=== PATIENT | male | born 1935 | race Caucasian/White ===

== ENCOUNTER 2019-05-12 18:40 | Inpatient (IN) ==
[2019-05-12 19:19] LABS: BASO# 0.03 X1000 (0.0-0.2); BASO% 0.4 % (0.0-0.8); EOS# 0.22 X1000 (0.0-0.7); EOS% 2.9 % (0.0-10.0); HEMOGLOBIN 8.9 g/dL (14.0-18.0); IMM GRAN# 0.02 X1000 (0.0-0.04); IMM GRAN% 0.3 % (0.0-0.5); LYMPH# 1.38 X1000 (1.2-3.4); LYMPH% 18.2 % (20.5-51.1); MCH 32.2 PG (27-31); MCV 97.8 FL (81-99); MONO# 0.67 X1000 (0.11-0.59); MONO% 8.8 % (1.7-9.3); MPV 11.6 FL (7.4-10.4); NEUT# 5.26 X1000 (1.4-6.5); NEUT% 69.4 % (42.2-75.2); PLT 181 X1000 (130-400); RBC 2.76 XMIL (4.7-6.1); RDW 11.8 % (11.5-14.5); WBC 7.58 X1000 (4.8-10.8)
[2019-05-12 19:44] LABS: ALBUMIN 3.9 g/dL (3.5-5.0); CALCIUM 9.3 mg/dL (8.8-10.2); CREATININE 2.9 mg/dL (0.7-1.2); MAGNESIUM 2.2 mg/dL (1.5-2.7); POTASSIUM 4.7 mmol/L (3.5-5.1); TOTAL BILIRUBIN 0.2 mg/dL (0.20-1.00); TOTAL PROTEIN 6.4 g/dL (6.3-8.3)
[2019-05-12] MEDS ORDERED: NS 1,000 ML IV ONE (20:03)
[2019-05-12 20:21] LABS: BILIRUBIN URINE NEGATIVE (NEGATIVE); BLOOD URINE NEGATIVE (NEGATIVE); COLOR YELLOW; KETONE URINE NEGATIVE (NEGATIVE); LEUKOCYTES URINE TRACE (NEGATIVE); NITRITE URINE NEGATIVE (NEGATIVE); PROTEIN URINE TRACE mg/dL (NEGATIVE); UROBILINOGEN URINE NORMAL
[2019-05-12 20:35] LABS: URINE SOURCE CATH
[2019-05-12 20:36] LABS: CLARITY CLEAR (CLEAR)
[2019-05-12 20:38] LABS: URINE BACTERIA NEGATIVE /HFP; URINE CAST NONE SEEN /LPF; URINE CRYSTAL NONE SEEN /HPF; URINE EPITHELIAL CELLS <10 /HPF (<10); URINE RBC <10 /HPF (<10); URINE WBC <10 /HPF (<10); URINE YEAST NONE SEEN /HPF
[2019-05-12] MEDS ORDERED: HUMALOG SUBQ SCH (21:00)
[2019-05-12] MEDS: HUMALOG (PARKWAY) SUBQ SCH ×2 (23:42→23:52)
[2019-05-12] MEDS: NS 1,000 ML IV SCH (23:43)
[2019-05-13] MEDS: HUMALOG (PARKWAY) SUBQ SCH ×3 (06:36→16:58)
[2019-05-13] MEDS ORDERED: ZOFRAN IV PRN (08:55)
[2019-05-13] MEDS ORDERED: TYLENOL PO PRN (08:55)
[2019-05-13] MEDS ORDERED: PERICOLACE PO PRN (08:59)
[2019-05-13] MEDS: NORVASC PO SCH (10:43)
[2019-05-13] MEDS: ZYRTEC PO SCH (10:43)
[2019-05-13] MEDS: GLUCOPHAGE XR PO SCH ×2 (10:43→22:39)
[2019-05-13] MEDS: TENORMIN PO SCH (10:43)
[2019-05-13] MEDS: DITROPAN PO SCH ×2 (10:43→22:39)
[2019-05-13] MEDS: FLOMAX PO SCH (10:43)
[2019-05-13] MEDS: PLAVIX PO SCH (10:44)
[2019-05-13] MEDS: NS 1,000 ML IV SCH (14:33)
--- NOTE | 2019-05-13 16:50 | HISTORY AND PHYSICAL ---
PRIMARY CARE PROVIDER: Dr. Brendan Guadalupe. CHIEF COMPLAINT: High blood sugar, excessive drinking, dehydration. HISTORY OF PRESENT ILLNESS: Mr. 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 Currently only oriented to name. Apparently, he is still living at home. He has a sitter that sits with him during the day and no one to sit with him at night. He has a bath lady that helps him in the mornings. He was brought in through the emergency department for excessive thirst, high blood sugar levels, and he was admitted for treatment of that. Also apparently, he has been having increasing sleepiness, sleeping more, decreased appetite, only eating around 1 meal a day. Some reported difficulties with swallowing. His blood glucose level was 460 on admit. Got fluids. Got insulin. Culture of the urine pending, but no antibiotics as of right now. PAST MEDICAL HISTORY: 1. CVA and left-sided weakness in 2005. 2. Possible dementia. 3. Diabetes mellitus type 2. 4. Hypertension. 5. BPH. 6. Hyperlipidemia. 7. Seasonal allergies. 8. Chronic back pain. 9. CKD stage 3. SURGICAL HISTORY: None. SOCIAL HISTORY: An old H and P says he denies alcohol, tobacco, or illicit drug use. It is really difficult to obtain this information right now; he is a poor historian. The neighbor says he does live alone but has a sitter during the day. He is alone at night. FAMILY HISTORY: Unable to obtain. ALLERGIES: No known drug allergies. HOME MEDICATIONS: 1. Atenolol 50 mg p.o. daily. 2. Flomax 0.4 mg p.o. daily. 3. Metformin 1000 mg p.o. twice daily. 4. Oxybutynin 5 mg p.o. twice daily. 5. Plavix 75 mg p.o. daily. 6. Senokot 1 to 4 tablets p.o. twice daily for constipation. 7. Zyrtec 10 mg p.o. daily. 8. Lipitor 40 mg p.o. nightly. 9. Norvasc 10 mg p.o. daily. REVIEW OF SYSTEMS: Unable to obtain. He denies pain. PHYSICAL EXAMINATION: VITAL SIGNS: Temperature is 97.6 degrees, heart rate 57, respiratory rate 18, blood pressure 123/60, O2 saturation 97% on room air. GENERAL: Mr. Sacha Ray is an 83-year-old male. He is in no acute distress, but he is not really able answer questions. HEENT: Atraumatic, normocephalic. Pupils equal, round, reactive to light and unable to cooperate with extraocular movements. Mucous membranes moist. NECK: Trachea midline. CARDIOVASCULAR: S1, S2. Bradycardic rate and rhythm. No rubs, gallops, or murmurs. No lower extremity edema. With +2 dorsalis and radial pulses. Negative JVD or carotid bruits. PULMONARY: Clear to auscultation. Bilateral breath sounds. No accessory muscle use or work of breathing noted. GI: Soft, nontender, nondistended. Positive bowel sounds x4. EXTREMITIES: Decreased movement and strength in the left upper and lower extremities. They are unequal. This is chronic for him. NEUROLOGIC: Oriented to name only. Follows some simple commands. SKIN: Warm, dry, intact. LABORATORY DATA: White blood cells 7000, hemoglobin 8, hematocrit 27, platelet count 181,000. Sodium 134, potassium 4.7, BUN 102, creatinine 2.9, glucose was 460, but is down to 160, calcium 9.3, magnesium 2.2, bilirubin 0.20, AST 26, ALT 34, troponin 0.03, albumin 3.9, lipase 63. Urinalysis trace protein, trace white blood cells, 3+ glucose, negative for bacteria. IMAGING: None. ASSESSMENT AND PLAN: 1. Hyperglycemia with dehydration. Insulin sliding scale along with IV fluid hydration given. Started on diabetic diet. 2. Mild acute kidney injury on top of chronic kidney disease stage 3. Again, should start to improve with IV fluid hydration. 3. History of stroke and likely with dementia. Baseline is really unclear. He is only oriented to name. Could be metabolic encephalopathy. 4. Hypertension. Continue home medications. 5. Benign prostatic hypertrophy. Continue home medications. 6. Hyperlipidemia. Continue statin. 7. Deep venous thrombosis prophylaxis with SCDs. Dictated by SOURAV Fowler for Cesar Canales MD Addendum: Patient seen and examined by myself. Agree with ROLLOUT MANAGER note. It reflects my assessment and plan. Patient is being admitted to hospital for volume depletion and hyperglycemia. Also he complained of chest pain. Will trend cardiac enzymes, will start IV fluids and continue home medications. Will monitor patient closely. cc: SOURAV Fowler MD MTDD
[2019-05-13] MEDS: LIPITOR PO SCH (22:39)
[2019-05-14] MEDS: HUMALOG (PARKWAY) SUBQ SCH ×5 (03:52→21:41)
[2019-05-14 06:44] LABS: HEMOGLOBIN A1C 7.1 % (4.8-6.0)
[2019-05-14 06:45] LABS: BASO# 0.03 X1000 (0.0-0.2); BASO% 0.3 % (0.0-0.8); EOS# 0.36 X1000 (0.0-0.7); EOS% 3.6 % (0.0-10.0); HEMATOCRIT 27.7 % (42.0-52.0); HEMOGLOBIN 9.2 g/dL (14.0-18.0); IMM GRAN# 0.03 X1000 (0.0-0.04); IMM GRAN% 0.3 % (0.0-0.5); LYMPH# 2.25 X1000 (1.2-3.4); LYMPH% 22.3 % (20.5-51.1); MCH 32.2 PG (27-31); MCHC 33.2 g/dL (33-37); MCV 96.9 FL (81-99); MONO# 0.71 X1000 (0.11-0.59); MPV 10.7 FL (7.4-10.4); NEUT# 6.72 X1000 (1.4-6.5); NEUT% 66.5 % (42.2-75.2); PLT 198 X1000 (130-400); RBC 2.86 XMIL (4.7-6.1)
[2019-05-14 06:55] LABS: ALBUMIN 3.4 g/dL (3.5-5.0); CALCIUM 9.6 mg/dL (8.8-10.2); CREATININE 2.3 mg/dL (0.7-1.2); MAGNESIUM 2.1 mg/dL (1.5-2.7); POTASSIUM 5.2 mmol/L (3.5-5.1); TOTAL BILIRUBIN 0.3 mg/dL (0.20-1.00); TOTAL PROTEIN 6.6 g/dL (6.3-8.3)
[2019-05-14] MEDS: PLAVIX PO SCH (09:09)
[2019-05-14] MEDS: DITROPAN PO SCH ×2 (09:09→21:41)
[2019-05-14] MEDS: FLOMAX PO SCH (09:10)
[2019-05-14] MEDS: TENORMIN PO SCH (09:10)
[2019-05-14] MEDS: ZYRTEC PO SCH (09:10)
[2019-05-14] MEDS: GLUCOPHAGE XR PO SCH ×2 (09:10→21:40)
[2019-05-14] MEDS: NORVASC PO SCH (09:10)
--- NOTE | 2019-05-14 11:18 | Diag Imaging Result Doc PS360 ---
EXAM: CHEST-1 VIEW HISTORY: sob TECHNIQUE: Single view. COMPARISON: 05/06/2018. FINDINGS: The cardiomediastinal silhouette is within normal limits. The pulmonary vasculature is not congested. Right hemithorax shows no infiltrate, effusion, or pneumothorax. Left hemithorax is obscured by the patient's left upper extremity but no obvious pulmonary parenchymal abnormality is identified. IMPRESSION: No acute cardiopulmonary abnormality is identified. Limited evaluation left hemithorax due to superimposed left upper extremity. Electronically signed by Yoselin Lofton 05/14/2019 11:16 AM
--- NOTE | 2019-05-14 11:45 | PROGRESS NOTE ---
DATE: 05/14/2019 SUBJECTIVE: Patient reports feeling fine. No complaints at this time. No acute issues noted as per nursing staff overnight. OBJECTIVE: Vital Signs: Temperature 97.9 degrees, heart rate 56, respiratory rate 16, blood pressure 118/54, O2 saturation 100% on room air. General: This is a 89-year-old male lying in bed in no acute distress. Cardiovascular: S1 S2 heard. No murmurs, gallops, or rubs. Regular rate and rhythm. Respiratory: Clear bilaterally to auscultation. No work of breathing or using accessory muscles. Abdomen: Soft, nontender to palpation. Bowel sounds present. No organomegaly. Extremities: No clubbing or cyanosis. Decreased strength in the left lower extremities. Neurological: The patient has residual left hemiparesis. He follows simple commands, answers basic questions. LABORATORY DATA: Reviewed. ASSESSMENT AND PLAN: 1. Mild acute on chronic kidney disease stage 3. 2. Hyperglycemia with dehydration. 3. History of stroke with dementia. 4. Hypertension. 5. Benign prostatic hypertrophy. 6. Hyperlipidemia. At this point, patient is being given IV fluids. Patient is on sliding scale insulin for hyperglycemia. He is getting better. Renal function is getting better. Considering his history of stroke and physical deconditioning, family requests to have a referral for rehab facility. beam worker has been notified. We will follow recommendations. In the meantime, we will continue with same management. cc: Cesar Canales MD
[2019-05-14] MEDS: LOKELMA POWDER PACKET PO SCH ×2 (13:20→17:05)
[2019-05-14] MEDS: LIPITOR PO SCH (21:40)
[2019-05-15 06:10] LABS: BASO# 0.02 X1000 (0.0-0.2); BASO% 0.2 % (0.0-0.8); EOS# 0.25 X1000 (0.0-0.7); EOS% 2.9 % (0.0-10.0); HEMATOCRIT 26.4 % (42.0-52.0); HEMOGLOBIN 8.6 g/dL (14.0-18.0); IMM GRAN# 0.03 X1000 (0.0-0.04); IMM GRAN% 0.3 % (0.0-0.5); LYMPH# 2.35 X1000 (1.2-3.4); LYMPH% 26.9 % (20.5-51.1); MCH 31.3 PG (27-31); MCHC 32.6 g/dL (33-37); MONO# 0.66 X1000 (0.11-0.59); MONO% 7.5 % (1.7-9.3); NEUT# 5.44 X1000 (1.4-6.5); NEUT% 62.2 % (42.2-75.2); PLT 211 X1000 (130-400); RBC 2.75 XMIL (4.7-6.1); WBC 8.75 X1000 (4.8-10.8)
[2019-05-15] MEDS: HUMALOG (PARKWAY) SUBQ SCH ×3 (06:31→15:57)
[2019-05-15 06:33] LABS: ALBUMIN 3.5 g/dL (3.5-5.0); CALCIUM 9.3 mg/dL (8.8-10.2); CREATININE 2.4 mg/dL (0.7-1.2); POTASSIUM 4.4 mmol/L (3.5-5.1); TOTAL BILIRUBIN 0.3 mg/dL (0.20-1.00); TOTAL PROTEIN 6.4 g/dL (6.3-8.3)
[2019-05-15] MEDS: FLOMAX PO SCH (09:59)
[2019-05-15] MEDS: DITROPAN PO SCH ×2 (09:59→20:30)
[2019-05-15] MEDS: NORVASC PO SCH (09:59)
[2019-05-15] MEDS: ZYRTEC PO SCH (09:59)
[2019-05-15] MEDS: TENORMIN PO SCH (09:59)
[2019-05-15] MEDS: PLAVIX PO SCH (09:59)
[2019-05-15] MEDS: NS 1,000 ML IV SCH ×2 (10:00→20:30)
--- NOTE | 2019-05-15 10:00 | PROGRESS NOTE ---
DATE: 05/15/2019 SUBJECTIVE: Patient denies having any acute complaints this morning. He is awake and knows that he is in the hospital. He actually wants to go home. OBJECTIVE: Vital Signs: Temperature 97.7 degrees, pulse 57 per minute, respiratory rate 14 per minute, blood pressure 102/59, pulse oximetry 97% on room air. General: Patient is alert and awake. He does not appear to be in any acute distress. Cardiovascular System: First and second heart sounds are audible without any murmurs or gallops. Respiratory System: No respiratory distress noted. Bilateral lung air entry is moderately decreased but there are no rales or rhonchi present on auscultation. Gastrointestinal: Abdomen is soft and nondistended. Normal bowel sounds are present. DIAGNOSTIC DATA: CBC shows hemoglobin of 8.6 and hematocrit 26.4. Rest of the CBC is nondiagnostic. In comparison, his hemoglobin and hematocrit were 9.2 and 27.7 yesterday. Comprehensive metabolic panel showed BUN of 70, creatinine 2.4, and sodium levels of 134. Rest of the comprehensive metabolic panel is nondiagnostic. IMPRESSION: 1. Type 2 diabetes mellitus with hyperglycemia that has now improved. 2. Acute kidney injury secondary to pre renal azotemia/dehydration. 3. Metabolic encephalopathy that has now improved. 4. Hypertension with relatively low blood pressure of 102/59 this morning. 5. Anemia that appears to be chronic and slightly worsened secondary to hemodilution because of IV fluids. PLAN: The patient will be continued here on lispro insulin as per sliding scale and I am going to restart him on IV fluid normal saline at 100 mL/h. I am going to decrease the dose of amlodipine to 5 mg a day because of relatively low blood pressure and continue with the rest of his home medications. We will continue providing him supportive care and follow hospital course. cc: Andrez Damico MD
--- NOTE | 2019-05-15 11:43 | PROVIDER DOCUMENTATION ---
This chart was entered by Ivone Perry Scribe, acting as scribe for Timi Barrientos MD. HPI-General Adult - General Chief Complaint: High Blood Sugar Stated Complaint: BP/BS PROBS Time Seen by Provider: 05/12/19 19:27 Source: family, RN/MD (chemist intern) Allergies/Adverse Reactions: Patient Allergies Allergy/AdvReac Type Severity Reaction Status Date / Time No Known Allergies Allergy Verified 05/12/19 19:27 Home Medications: Home Medication List Medication Instructions Recorded Confirmed Last Taken Type Atenolol 50 mg PO DAILY 05/15/13 05/12/19 05/12/19 History Metformin HCl [Fortamet] 1,000 mg PO BID 05/15/13 05/12/19 05/12/19 History ATORVAstatin [Lipitor] 40 mg PO HS #0 tablet 05/18/13 05/12/19 05/11/19 Rx Cetirizine [Zyrtec] 10 mg PO DAILY 05/04/18 05/12/19 05/12/19 History Clopidogrel [Plavix] 75 mg PO DAILY 05/04/18 05/12/19 05/12/19 History Oxybutynin Chloride 5 mg PO BID 05/04/18 05/12/19 05/12/19 History Tamsulosin HCl [Flomax] 0.4 mg PO DAILY 05/04/18 05/12/19 05/12/19 History Amlodipine [Norvasc] 10 mg PO DAILY tablet 05/11/18 05/12/19 05/12/19 Rx Sennosides/Docusate Sodium 1 - 4 tab PO BID PRN 05/12/19 05/12/19 Unknown History [Senna-S Tablet] - History of Present Illness -Gen Adult Nature of Presenting Problems: 83 yowm presents w/family and utility tech w/cc high fsbs for 2 wks. family sts pt had fsbs 225 this am and went up over 500 this afternoon when chemist intern checked. pt was "out of it" and "wouldn't wake up." pt has been drinking a lot of water lately. pt has hx of DM, takes metformin 2 x daily, family sts pt has had trouble swallowing them lately. pt doesn't ambulate. pt also has hx of cva in 2005 w/left sided deficits and htn. Location of Pain/Injury: reports: none Pain Radiation: reports: no radiation Quality of Pain: reports: none Severity: reports: mild Onset/Duration: reports: this morning Similar Symptoms Previously?: Yes - Diabetes Related Context Context: reports: high blood sugar, other ("out of it" and "couldn't wake up") Review of Systems - Adult - REVIEW OF SYSTEMS - ADULT ROS:: ROS per family Constitutional: reports: see HPI. denies: chills, fever, fatique Eyes: reports: no symptoms reported Ears, Nose, Mouth & Throat: reports: no symptoms reported Cardiovascular: reports: no symptoms reported Respiratory: reports: no symptoms reported Gastrointestinal: reports: no symptoms reported Genitourinary: reports: no symptoms reported Musculoskeletal: reports: no symptoms reported Integumentary: reports: no symptoms reported Neurological: reports: no symptoms reported Psychiatric: reports: no symptoms reported Endocrine: reports: see HPI, increased thirst, other. denies: change in skin pigment, excessive sweating, goiter (high fsbs) Hematologic/Lymphatic: reports: no symptoms reported Allergic/Immunologic: reports: no symptoms reported All Other Systems: Reviewed and Negative Past History - Adult - PAST MEDICAL HISTORY-ADULT Review of Records: reports: Old Records Reviewed, Nursing Assessment Review, Medications Reviewed, Social history reviewed & non-contributory. Major Childhood Illnesses: reports: denies history Cardiovascular: reports: HTN Respiratory: reports: denies history Gastrointestinal: reports: denies history Obstetrical/Gynecological: reports: denies history Genitourinary: reports: denies history Musculoskeletal: reports: denies history Neurological: reports: CVA, stroke deficits (left sided) Endocrine/Immune: reports: Diabetes Other Conditions: reports: denies history - PRIOR SURGERIES/PROCEDURES Surgical/Procedure History: reports: none - IMMUNIZATION STATUS Childhood Immunizations: See Nurse Assessment Flu Vaccine: See Nurse Assessment - FAMILY HISTORY Family History: reviewed, not pertinent - SOCIAL HISTORY Smoking: non-smoker Substance Use: none/never Physical Exam-General - PHYSICAL EXAM-ADULT Initial Vital Signs Reviewed: Yes - CONSTITUTIONAL General Appearance: no apparent distress, slow to respond. negative: anxious, lethargic, combative - EYES Eyes: other (conjugate gaze). negative: EOM palsy, photophobia, sunken eyes - HEAD, EARS, NOSE, MOUTH & THROAT HENMT: normocephalic/atraumatic, normal ENT inspection. negative: moist mucous membranes (dry mucous membranes), angioedema, frontal tenderness, maxillary tenderness - NECK Neck: non-tender, full range of motion, supple, normal inspection - RESPIRATORY Respiratory: chest non-tender, lungs clear, normal breath sounds - CARDIOVASCULAR Cardiovascular: normal peripheral pulses, regular rate, rhythm - GASTROINTESTINAL (ABDOMEN) Abdominal Exam: normal bowel sounds, non tender, soft - LYMPHATIC Lymphatic: no adenopathy - MUSCULOSKELETAL Back Exam: normal inspection, no CVA tenderness, no vertebral tenderness Extremity: normal range of motion, non-tender, other (contracted left arm from prior cva). negative: normal inspection, erythema, inflammation, swelling Peripheral Pulses: radial (R): 2+, radial (L): 2+ - SKIN Integumentary: normal color, normal turgor, warm/dry - NEUROLOGIC Neurologic: grossly normal, sensory deficit, other (pt does not amb, has left sided deficits from prior cva). negative: no motor/sensory deficits, motor weakness - PSYCHIATRIC Psych/Mental Status: other (unable to test due to pt condition). negative: anxious, disheveled, depressed affect Progress - PLAN OF CARE/RESULTS Progress/Plan/Lab Results: Vital Signs - 8 hr 05/12/19 18:32 05/12/19 19:18 Temperature 98.1 F Pulse Rate 69 70 Respiratory Rate 18 16 Blood Pressure 140/075 138/75 O2 Sat by Pulse Oximetry 98 98 Laboratory Results - last 24 hr 05/12/19 05/12/19 18:40 18:40 WBC 7.58 RBC 2.76 L Hgb 8.9 L Hct 27.0 L MCV 97.8 MCH 32.2 H MCHC 33.0 RDW Std Deviation 11.8 Plt Count 181 MPV 11.6 H Immature Gran % (Auto) 0.3 Neut % (Auto) 69.4 Lymph % (Auto) 18.2 L B[place] % (Auto) 8.8 Eos % (Auto) 2.9 Baso % (Auto) 0.4 Immature Gran # (Auto) 0.02 Neut # (Auto) 5.26 Lymph # (Auto) 1.38 [place] # (Auto) 0.67 H Eos # (Auto) 0.22 Baso # (Auto) 0.03 Acetone Level NEGATIVE Orders Category Date Time Status Cardiac Monitoring DIRECTED Care 05/12/19 18:46 Active Saline Loc NOW Care 05/12/19 18:46 Active ACETONE SERUM [CHEM] Stat Lab 05/12/19 18:40 Completed CBC WITH ELECTRONIC DIFF [HEME] Stat Lab 05/12/19 18:40 Completed COMPREHENSIVE METABOLIC PANEL [CHEM] Stat Lab 05/12/19 18:40 Received LIPASE [CHEM] Stat Lab 05/12/19 18:40 Received MAGNESIUM [CHEM] Stat Lab 05/12/19 18:40 Received TROPONIN T Stat Lab 05/12/19 18:[address] W/POSS RFLX CULT [URINALYSIS] Stat Lab 05/12/19 18:47 Uncollected EKG [EKG] Stat Ther 05/12/19 18:46 Ordered Result Diagrams: 05/16/19 05:29 05/16/19 05:29 Departure - Departure Date of Disposition Decision: 05/12/19 Time of Disposition Decision: 21:37 DIAGNOSIS: Hyperglycemia, Dehydration, Azotemia Dementia Qualifiers: Dementia type: unspecified type Dementia behavioral disturbance: without behavioral disturbance Qualified Code(s): F03.90 - Unspecified dementia without behavioral disturbance Diabetes Qualifiers: Diabetes mellitus type: type 2 Diabetes mellitus continuous churn buttermaker insulin use: unspecified mcc insulin use status Diabetes mellitus complication status: with other specified complication Qualified Code(s): E11.69 - Type 2 diabetes mellitus with other specified complication Disposition: ADMITTED INPATIENT 09 Certified Medical Emergency: Emergent Condition: Stable - Critical Care Note This patient required my direct & personal management of CC.: No Attestation - Physician/ WINNIE Attestation Patient care was provided by Advanced Practice Provider:: No The physician spent face to face time with patient:: Yes Advanced Practice Provider documentation review:: Supervising physician onsite and consulted in the evaluation and care of this patient. The physician did have a face to face encounter with the patient. This chart was documented by the indicated scribe, (Ivone Perry Scribe) and accurately reflects the services I performed and decisions made by me, Timi Barrientos MD, as attested by the provider's signature.
[2019-05-15] MEDS: LOKELMA POWDER PACKET PO SCH ×3 (11:57→18:43)
[2019-05-15] MEDS: LIPITOR PO SCH (20:30)
[2019-05-16] MEDS: HUMALOG (PARKWAY) SUBQ SCH ×5 (03:51→21:51)
[2019-05-16 06:26] LABS: BASO# 0.02 X1000 (0.0-0.2); BASO% 0.3 % (0.0-0.8); EOS# 0.19 X1000 (0.0-0.7); EOS% 2.4 % (0.0-10.0); HEMATOCRIT 26.8 % (42.0-52.0); IMM GRAN# 0.02 X1000 (0.0-0.04); IMM GRAN% 0.3 % (0.0-0.5); LYMPH# 1.82 X1000 (1.2-3.4); LYMPH% 22.9 % (20.5-51.1); MCH 31.8 PG (27-31); MCHC 33.6 g/dL (33-37); MCV 94.7 FL (81-99); MONO% 8.8 % (1.7-9.3); MPV 11.2 FL (7.4-10.4); NEUT# 5.19 X1000 (1.4-6.5); NEUT% 65.3 % (42.2-75.2); PLT 195 X1000 (130-400); RBC 2.83 XMIL (4.7-6.1); RDW 11.8 % (11.5-14.5); WBC 7.94 X1000 (4.8-10.8)
[2019-05-16 06:53] LABS: ALBUMIN 3.4 g/dL (3.5-5.0); CALCIUM 8.9 mg/dL (8.8-10.2); CREATININE 2.2 mg/dL (0.7-1.2); MAGNESIUM 1.8 mg/dL (1.5-2.7); POTASSIUM 3.8 mmol/L (3.5-5.1); TOTAL BILIRUBIN 0.3 mg/dL (0.20-1.00); TOTAL PROTEIN 6.3 g/dL (6.3-8.3)
[2019-05-16] MEDS: FLOMAX PO SCH (09:31)
[2019-05-16] MEDS: TENORMIN PO SCH ×2 (09:31→17:01)
[2019-05-16] MEDS: PLAVIX PO SCH (09:31)
[2019-05-16] MEDS: DITROPAN PO SCH ×2 (09:31→21:50)
[2019-05-16] MEDS: ZYRTEC PO SCH (09:31)
[2019-05-16] MEDS: NORVASC PO SCH (09:31)
--- NOTE | 2019-05-16 13:21 | PROGRESS NOTE ---
DATE: 05/16/2019 SUBJECTIVE: Patient reports feeling fine. A little bit sleepy this morning. OBJECTIVE: Vital Signs: Temperature 97.7 degrees, heart rate 59, respiratory rate 18, blood pressure 124/73, O2 saturation 100% on room air. General: This is a chronically ill-appearing, 83-year-old male, lying in bed, in no acute distress. Cardiovascular: S1, S2 heard. No murmurs, gallops, or rubs. Regular rate and rhythm. Respiratory: Clear bilaterally to auscultation. No work of breathing or using accessory muscles. Abdomen: Soft. A little bit distended. Nontender to palpation. Bowel sounds present. No organomegaly. Extremities: No clubbing, cyanosis, or edema. Peripheral pulses present in both legs. Neurological: The patient is alert, oriented x3. Moves 4 extremities. LABORATORY DATA: Reviewed. ASSESSMENT/PLAN: 1. Diabetes mellitus type 2 with hyperglycemia. That condition is much better now. We will continue with current treatment. 2. Acute kidney injury. We will continue with IV fluids. Renal function definitely is back to his baseline. 3. Metabolic encephalopathy improving. 4. Hypertension. Blood pressure is definitely much better controlled. We will continue with the same medication. 5. Anemia of chronic disease. The anemia is stable. There is some component of delusional anemia but no signs of bleeding. We will continue to monitor. DISPOSITION: Patient is awaiting rehab bed. cc: Cesar Canales MD
[2019-05-16] MEDS: NS 1,000 ML IV SCH (17:01)
[2019-05-16] MEDS: LIPITOR PO SCH (21:51)
[2019-05-17] MEDS: NS 1,000 ML IV SCH ×5 (01:51→23:02)
[2019-05-17] MEDS: HUMALOG (PARKWAY) SUBQ SCH ×4 (06:38→22:24)
[2019-05-17 06:44] LABS: BASO# 0.03 X1000 (0.0-0.2); BASO% 0.4 % (0.0-0.8); EOS# 0.23 X1000 (0.0-0.7); HEMATOCRIT 26.9 % (42.0-52.0); HEMOGLOBIN 9.1 g/dL (14.0-18.0); IMM GRAN# 0.01 X1000 (0.0-0.04); IMM GRAN% 0.1 % (0.0-0.5); LYMPH# 1.72 X1000 (1.2-3.4); LYMPH% 22.7 % (20.5-51.1); MCH 32.9 PG (27-31); MCHC 33.8 g/dL (33-37); MCV 97.1 FL (81-99); MONO# 0.63 X1000 (0.11-0.59); MONO% 8.3 % (1.7-9.3); MPV 10.4 FL (7.4-10.4); NEUT# 4.96 X1000 (1.4-6.5); NEUT% 65.5 % (42.2-75.2); PLT 194 X1000 (130-400); RBC 2.77 XMIL (4.7-6.1); RDW 11.7 % (11.5-14.5); WBC 7.58 X1000 (4.8-10.8)
[2019-05-17 06:53] LABS: ALBUMIN 3.3 g/dL (3.5-5.0); CALCIUM 8.8 mg/dL (8.8-10.2); MAGNESIUM 1.8 mg/dL (1.5-2.7); POTASSIUM 3.7 mmol/L (3.5-5.1); TOTAL BILIRUBIN 0.3 mg/dL (0.20-1.00); TOTAL PROTEIN 6.1 g/dL (6.3-8.3)
[2019-05-17] MEDS: TENORMIN PO SCH (09:42)
[2019-05-17] MEDS: DITROPAN PO SCH ×2 (09:42→20:00)
[2019-05-17] MEDS: ZYRTEC PO SCH (09:42)
[2019-05-17] MEDS: FLOMAX PO SCH (09:42)
[2019-05-17] MEDS: PLAVIX PO SCH (09:42)
[2019-05-17] MEDS: NORVASC PO SCH (09:42)
--- NOTE | 2019-05-17 12:09 | PROGRESS NOTE ---
DATE: 05/17/2019 SUBJECTIVE: The patient is lying in bed, asking when he is leaving the hospital. No complaints reported. OBJECTIVE: Vital Signs: Temperature 98.4 degrees, heart rate 60, respiratory rate 18, blood pressure 158/61, O2 sat 100% on room air. General: This is a chronically ill-appearing, 83-year- old female, lying in bed in no acute distress. Cardiovascular: S1, S2 heard. No murmurs, gallops, or rubs. Regular rate and rhythm. Respiratory: Clear bilaterally to auscultation. No work of breathing or using accessory muscles. Abdomen: Soft. A little bit distended. Nontender to palpation. Bowel sounds present. No organomegaly. Extremities: No clubbing, cyanosis, or edema. Peripheral pulses present in both legs. Neurological: The patient is alert and oriented x3. Moves all 4 extremities. LABORATORY DATA: Reviewed. ASSESSMENT AND PLAN: 1. Diabetes mellitus type 2 with hyperglycemia. The condition is much better controlled. Will continue with the current treatment. 2. Acute kidney injury. Creatinine is back to baseline. Will continue with intravenous fluids. 3. Metabolic encephalopathy, improving. 4. Hypertension. Blood pressure is much better controlled. Will continue with the same management. 5. Anemia of chronic disease. Anemia is stable. Will continue to monitor CBC. 6. Disposition. The patient has a rehab bed for tomorrow according to the social work program coordinator, if the patient is medically stable, so will discharge him tomorrow. cc: Cesar Canales MD
[2019-05-17] MEDS: LIPITOR PO SCH (20:00)
[2019-05-18] MEDS: HUMALOG (PARKWAY) SUBQ SCH ×2 (06:25→11:55)
[2019-05-18 06:44] VITALS: BP 152/76
[2019-05-18] MEDS: NORVASC PO SCH (09:06)
[2019-05-18] MEDS: DITROPAN PO SCH (09:06)
[2019-05-18] MEDS: FLOMAX PO SCH (09:06)
[2019-05-18] MEDS: TENORMIN PO SCH (09:06)
[2019-05-18] MEDS: ZYRTEC PO SCH (09:06)
[2019-05-18] MEDS: PLAVIX PO SCH (09:06)
--- NOTE | 2019-05-18 09:57 | DISCHARGE SUMMARY ---
ADMISSION DATE: 05/12/2019 DISCHARGE DATE: 05/18/2019 CONSULTATIONS: None. PERTINENT PROCEDURES: Chest x-ray. No acute cardiopulmonary abnormality is identified. Limited evaluation of left pneumothorax is superimposed left upper extremity. DISCHARGE DIAGNOSES: 1. Diabetes mellitus type 2 with hyperglycemia. The patient's condition is better controlled. We will continue with current treatment. 2. Acute kidney injury. Patient is back to baseline. 3. Metabolic encephalopathy, improved. 4. Hypertension, better controlled. 5. Anemia of chronic disease, stable. HOSPITAL COURSE: Briefly, Mr. 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 He still lives at home. He has a sitter who sits with him during the day, but no one is able to stay with him at night. He was brought into the ED, and was complaining of excessive thirst, high blood sugar levels, and was admitted for treatment of diabetes mellitus type 2 with hyperglycemia and metabolic encephalopathy. He received IV insulin, IV fluids, and was placed on a diabetic regimen as well as sliding scale. Over the course of the next few days, his blood sugars have been more well controlled. His encephalopathy has improved. He has been working with PT and OT. The recommendation is rehab which he will be discharged there today. VITAL SIGNS: Temperature 97.6 degrees, heart rate 60 respirations 16, blood pressure 152/76, and O2 is 100% on room air. DISCHARGE DIET: Diabetic. DISCHARGE MEDICATIONS: 1. Atenolol 50 mg p.o. daily. 2. Flomax 0.4 mg p.o. daily. 3. Ditropan 5 mg p.o. b.i.d. 4. Plavix 75 mg p.o. daily. 5. Senokot 1 to 4 tablets p.o. b.i.d. 6. Zyrtec 10 mg p.o. daily. 7. Lipitor 40 mg p.o. at bedtime. 8. Norvasc 10 mg p.o. daily. FOLLOW-UP: The patient is being discharged to rehab. He is taking all medications as prescribed. He can return to the ED or call 911 for any worsening of symptoms. Dictated by SOURAV Lowe for Gilberto Polanco MD cc: MD Gilberto Sanchez MD
--- NOTE | 2019-05-19 01:27 | DISCHARGE SUMMARY ---
ADMISSION DATE: 05/12/2019 DISCHARGE DATE: 05/18/2019 ADDENDUM: The patient thankfully is feeling better. His labs are normal. His creatinine is back to his stable chronic kidney disease. We are going to discharge him to rehab. Please see full note. cc: Gilberto Polanco MD
== END 2019-05-18 12:44 | DRG 637 ==
LOC: P.ED 18:40 → SUATTDRO 21:16 → P.MEDSURG 21:16
PROVIDERS: ATTEND Family Medicine

== ENCOUNTER 2019-09-29 07:04 | Inpatient (IN) ==
--- NOTE | 2019-09-29 07:36 | PROVIDER DOCUMENTATION ---
HPI-General Adult - General Chief Complaint: Abdominal Pain Stated Complaint: AMS, fever Time Seen by Provider: 09/29/19 07:07 Source: EMS Allergies/Adverse Reactions: Patient Allergies Allergy/AdvReac Type Severity Reaction Status Date / Time No Known Allergies Allergy Verified 05/12/19 19:27 Home Medications: Home Medication List Medication Instructions Recorded Confirmed Last Taken Type Atenolol 50 mg PO DAILY 05/15/13 09/12/19 09/12/19 History ATORVAstatin [Lipitor] 40 mg PO HS #0 tablet 05/18/13 09/12/19 09/11/19 Rx Cetirizine [Zyrtec] 10 mg PO DAILY 05/04/18 09/12/19 09/12/19 History Clopidogrel [Plavix] 75 mg PO DAILY 05/04/18 09/12/19 09/12/19 History Oxybutynin Chloride 5 mg PO BID 05/04/18 09/12/19 09/12/19 History Tamsulosin HCl [Flomax] 0.4 mg PO DAILY 05/04/18 09/12/19 09/11/19 History Amlodipine [Norvasc] 10 mg PO DAILY tablet 05/11/18 09/12/19 09/12/19 Rx Insulin Glargine,Hum.rec.anlog 20 unit SQ DAILY #1 insuln.pen 09/12/19 Unknown Rx [Lantus Solostar] Multivitamin with Folic Acid 1 tab PO DAILY 09/12/19 09/12/19 09/12/19 History [Thera Tablet] Sennosides [Senna Lax] 1 tab PO BID PRN 09/12/19 09/12/19 Unknown History - History of Present Illness -Gen Adult Nature of Presenting Problems: Pt. resident at [facility]. EMS was called due to pt. yelling out that his stomach is hurting. Axillary temp enroute was 101.1. Pt. is A&Ox2. Location of Pain/Injury: reports: abdomen Pain Radiation: reports: no radiation Quality of Pain: reports: other (unable to obtained, diffuse abdomen distention and tenderness) Onset/Duration: reports: unsure, this morning Timing: reports: still present Context/Activities at Onset: reports: other (assisted patient) Modifying Factors: improves with: nothing Associated Symptoms: reports: constipation Review of Systems - Adult - REVIEW OF SYSTEMS - ADULT ROS:: unobtainable per condition Constitutional: reports: fever Eyes: reports: no symptoms reported Ears, Nose, Mouth & Throat: reports: no symptoms reported Cardiovascular: reports: no symptoms reported Respiratory: reports: other (hyperventilation) Gastrointestinal: reports: abdominal pain, constipation Genitourinary: reports: other (incontinence) Musculoskeletal: reports: other (left side hemiparesis, upper extremity contracture on the left) Integumentary: reports: no symptoms reported Neurological: reports: other (old CVA) Endocrine: reports: no symptoms reported Hematologic/Lymphatic: reports: no symptoms reported Allergic/Immunologic: reports: no symptoms reported Past History - Adult - PAST MEDICAL HISTORY-ADULT Review of Records: reports: Nursing Assessment Review Major Childhood Illnesses: reports: denies history Cardiovascular: reports: HTN Respiratory: reports: denies history Gastrointestinal: reports: denies history Obstetrical/Gynecological: reports: denies history Genitourinary: reports: denies history Musculoskeletal: reports: denies history Neurological: reports: CVA, stroke deficits (left sided) Endocrine/Immune: reports: Diabetes Other Conditions: reports: denies history - PRIOR SURGERIES/PROCEDURES Surgical/Procedure History: reports: none - IMMUNIZATION STATUS Childhood Immunizations: See Nurse Assessment Flu Vaccine: See Nurse Assessment - FAMILY HISTORY Family History: reviewed, not pertinent Physical Exam-General - PHYSICAL EXAM-ADULT Initial Vital Signs Reviewed: Yes - CONSTITUTIONAL General Appearance: alert, other (groaning and moaning) - EYES Eyes: negative: pink conjunctivae, anisocoria - HEAD, EARS, NOSE, MOUTH & THROAT HENMT: normocephalic/atraumatic - NECK Neck: other (stiff neck). negative: lymphadenopathy - RESPIRATORY Respiratory: prolonged expiration, other (hyperventilation) - CARDIOVASCULAR Cardiovascular: normal peripheral pulses - GASTROINTESTINAL (ABDOMEN) Abdominal Exam: distended, tenderness, other (diffuse tenderness) - LYMPHATIC Lymphatic: no adenopathy - MUSCULOSKELETAL Back Exam: no CVA tenderness, no vertebral tenderness Extremity: other (left upper extremity contracture) - SKIN Integumentary: warm/dry - NEUROLOGIC Neurologic: other (old hemiparsis) - PSYCHIATRIC Psych/Mental Status: anxious Progress - PLAN OF CARE/RESULTS Progress/Plan/Lab Results: Vital Signs - 8 hr 09/29/19 07:06 Temperature 99.9 F H Pulse Rate 82 Respiratory Rate 28 H Blood Pressure 106/86 O2 Sat by Pulse Oximetry 93 L Orders Category Date Time Status Cardiac Monitoring NOW Care 09/29/19 07:13 Active IV Insertion NOW Care 09/29/19 07:13 Active Notify Provider of NEWS Score NOW Care 09/29/19 07:13 Active CHEST-1 VIEW [RAD] Stat Exams 09/29/19 07:[address] ABDOMEN/PELVIS W/O CONTRAST [CT] Stat Exams 09/29/19 07:17 Ordered BLOOD CULTURE [BLDCUL] Stat Lab 09/29/19 07:16 Ordered CBC WITH DIFF [HEME] Stat Lab 09/29/19 07:16 Ordered CK PROFILE [SP CHEM] Stat Lab 09/29/19 07:16 Ordered COMPREHENSIVE METABOLIC PANEL [CHEM] Stat Lab 09/29/19 07:16 Ordered Flu [INFLUENZA SCREEN PL] Stat Lab 09/29/19 07:16 Ordered LACTATE, PLASMA [CHEM] Q3H Lab 09/29/19 07:16 Ordered LACTATE, PLASMA [CHEM] Q3H Lab 09/29/19 10:15 Uncollected LACTATE, PLASMA [CHEM] Q3H Lab 09/29/19 13:15 Uncollected PROTIME WITH INR [COAG] Stat Lab 09/29/19 07:16 Ordered PTT [COAG] Stat Lab 09/29/19 07:16 Ordered TROPONIN T HIGH SENSITIVITY Stat Lab 09/29/19 07:16 Ordered URINALYSIS W/POSS RFLX CULT [URINALYSIS] Stat Lab 09/29/19 07:13 Uncollected O2 Per Protocol Stat Oth 09/29/19 07:13 Active Result Diagrams: 09/29/19 07:15 09/29/19 07:15 - XRAY 1 XRAY Study: Chest Impression: See EMR Report (CHEST-1 VIEW - 09/29/2019 INDICATION: r/o pna COM PARISON: 09/12/2019 FINDINGS: There is dense opacification of the left lung base. Heart size is normal. The right lung is clear. IMPRESSION: Dense opacification of the left lung base. Electronically signed by Tito Benson 09/29/2019 8:09 AM 09/29/19 0809 Interpreting Physician: Tito Benson MD Dictated Date/Time: 09/29/19 0808 cc: Jasmyne Hurtado MD; Brendan Guadalupe MD) - CT/MRI 1 CT Study: Abdomen Impression: See EMR Report (CT ABDOMEN/PELVIS W/O CONTRAST - 09/29/2019 INDICATION: abd pain COMPARISON: None FINDINGS: There is a moderate left pleural effusion. There is also dense collapse of the left lower lobe. The right lung base is clear. Heart size is top normal. There is severe diffuse vascular disease. There is moderate patient motion artifact. No radiodense renal stones. No hydronephrosis or hydroureter. There is severe constipation of the proximal colon. There is moderate diverticulosis of the sigmoid colon. No bowel obstruction or inflammation. No abdominal free air or free fluid. No aneurysmal dilation of the abdominal aorta. There are advanced degenerative changes of the spine. No acute or suspicious bony lesion. IMPRESSION: 1. Left lower lobe collapse. Moderate left pleural effusion. 2. Constipation. 3. Diverticulosis coli. 4. Severe diffuse vascular disease. This exam was performed using automated exposure control, adjustment of mA or kV according to patient size, and/or use of iterative reconstruction technique Electronically signed by Tito Benson 09/29/2019 8:11 AM) Departure - Departure Date of Disposition Decision: 09/29/19 Time of Disposition Decision: 09:07 DIAGNOSIS: Pleural effusion on left Constipation Qualifiers: Constipation type: unspecified constipation type Qualified Code(s): K59.00 - Constipation, unspecified Fever Qualifiers: Fever type: unspecified Qualified Code(s): R50.9 - Fever, unspecified Leukocytosis Qualifiers: Leukocytosis type: unspecified Qualified Code(s): D72.829 - Elevated white blood cell count, unspecified Disposition: ADMITTED INPATIENT 09 Certified Medical Emergency: Emergent Condition: Good Referrals and Follow-Ups: Brendan Guadalupe MD [Primary Care Provider] - - Critical Care Note This patient required my direct & personal management of CC.: No Attestation - Physician/ WINNIE Attestation Patient care was provided by Advanced Practice Provider:: No The physician spent face to face time with patient:: Yes Advanced Practice Provider documentation review:: Supervising physician onsite and consulted in the evaluation and care of this patient. The physician did have a face to face encounter with the patient.
[2019-09-29 07:48] LABS: ALBUMIN 3.8 g/dL (3.5-5.0); CALCIUM 9.2 mg/dL (8.8-10.2); CREATININE 2.6 mg/dL (0.7-1.2); POTASSIUM 5.7 mmol/L (3.5-5.1); TOTAL BILIRUBIN 0.5 mg/dL (0.20-1.00); TOTAL PROTEIN 6.9 g/dL (6.3-8.3)
[2019-09-29 07:53] LABS: BASO# 0.01 X1000 (0.0-0.2); BASO% 0.1 % (0.0-0.8); EOS# 0.05 X1000 (0.0-0.7); EOS% 0.3 % (0.0-10.0); HEMATOCRIT 28.8 % (42.0-52.0); HEMOGLOBIN 9.2 g/dL (14.0-18.0); IMM GRAN# 0.05 X1000 (0.0-0.04); IMM GRAN% 0.3 % (0.0-0.5); LYMPH# 0.93 X1000 (1.2-3.4); LYMPH% 5.1 % (20.5-51.1); MCH 30.4 PG (27-31); MCHC 31.9 g/dL (33-37); MONO# 1.03 X1000 (0.11-0.59); MONO% 5.6 % (1.7-9.3); MPV 9.9 FL (7.4-10.4); NEUT# 16.25 X1000 (1.4-6.5); NEUT% 88.6 % (42.2-75.2); PLT 321 X1000 (130-400); RBC 3.03 XMIL (4.7-6.1); WBC 18.32 X1000 (4.8-10.8)
[2019-09-29 07:54] LABS: URINE SOURCE CATH
[2019-09-29 07:55] LABS: INFLUENZA A NEGATIVE (NEGATIVE); INFLUENZA B NEGATIVE (NEGATIVE)
[2019-09-29 07:57] LABS: INR 1.14; PROTIME 15.2 Seconds (11.0-16.0)
[2019-09-29 07:58] LABS: PTT 29.7 Seconds (22.3-41.8)
[2019-09-29 08:07] LABS: BILIRUBIN URINE NEGATIVE (NEGATIVE); BLOOD URINE TRACE (NEGATIVE); COLOR YELLOW; GLUCOSE URINE NEGATIVE (NEGATIVE); KETONE URINE NEGATIVE (NEGATIVE); LEUKOCYTES URINE NEGATIVE (NEGATIVE); NITRITE URINE NEGATIVE (NEGATIVE); PROTEIN URINE 50 mg/dL (NEGATIVE); SP GRAVITY URINE 1.013; TURBIDITY URINE CLEAR (CLEAR); UROBILINOGEN URINE NORMAL (NORMAL)
[2019-09-29 08:08] LABS: UR EPITHELIAL CELLS <10 /HPF (<10); URINE BACTERIA NEGATIVE /HPF; URINE RBC <10 /HPF (<10); URINE WBC <10 /HPF (<10)
--- NOTE | 2019-09-29 08:11 | Diag Imaging Result Doc PS360 ---
CHEST-1 VIEW - 09/29/2019 INDICATION: r/o pna COMPARISON: 09/12/2019 FINDINGS: There is dense opacification of the left lung base. Heart size is normal. The right lung is clear. IMPRESSION: Dense opacification of the left lung base. Electronically signed by Tito Benson 09/29/2019 8:09 AM
--- NOTE | 2019-09-29 08:13 | Diag Imaging Result Doc PS360 ---
CT ABDOMEN/PELVIS W/O CONTRAST - 09/29/2019 INDICATION: abd pain COMPARISON: None FINDINGS: There is a moderate left pleural effusion. There is also dense collapse of the left lower lobe. The right lung base is clear. Heart size is top normal. There is severe diffuse vascular disease. There is moderate patient motion artifact. No radiodense renal stones. No hydronephrosis or hydroureter. There is severe constipation of the proximal colon. There is moderate diverticulosis of the sigmoid colon. No bowel obstruction or inflammation. No abdominal free air or free fluid. No aneurysmal dilation of the abdominal aorta. There are advanced degenerative changes of the spine. No acute or suspicious bony lesion. IMPRESSION: 1. Left lower lobe collapse. Moderate left pleural effusion. 2. Constipation. 3. Diverticulosis coli. 4. Severe diffuse vascular disease. This exam was performed using automated exposure control, adjustment of mA or kV according to patient size, and/or use of iterative reconstruction technique Electronically signed by Tito Benson 09/29/2019 8:11 AM
[2019-09-29] MEDS ORDERED: ROCEPHIN 1 GM in NS 50 ML IV ONE (08:15)
[2019-09-29] MEDS ORDERED: MORPHINE IV ONE ×2 (08:36→10:17)
[2019-09-29] MEDS ORDERED: ZOFRAN IV ONE (08:44)
[2019-09-29 08:50] LABS: BE -2.5 mmoll (-3.0-3.0); BLOOD TYPE ARTERIAL; HCO3-(ACT) 22.8 mmoll (20.0-26.0); METHB 1.1 % (0.0-1.5); O2(CT) 12.6 mL/dL (15.0-23.0); PCO2(98.6) 29 mmHg (35-45); PO2(98.6) 52 mmHg (60-100); SAMPLE BLOOD; SAO2 92.5 % (95.0-100.0); pH(98.6) 7.46 (7.35-7.45)
[2019-09-29 08:52] LABS: ALLEN TEST YES
[2019-09-29 08:53] LABS: O2HB 89.2 % (95.0-99.0)
[2019-09-29 09:09] LABS: MODALITY ROOM AIR
[2019-09-29 09:39] LABS: LYMPHS 6 % (21-51); MONO 4 % (1-9); SEGS 90 % (42-75)
[2019-09-29] MEDS ORDERED: NS 1,000 ML IV ONE (09:48)
[2019-09-29] MEDS ORDERED: ZOFRAN IV PRN (09:54)
[2019-09-29] MEDS ORDERED: TYLENOL PO PRN (09:54)
[2019-09-29] MEDS ORDERED: KAYEXALATE PO ONE (10:42)
[2019-09-29] MEDS ORDERED: NS 1,000 ML ONE (11:15)
--- NOTE | 2019-09-29 11:47 | HISTORY AND PHYSICAL ---
PHYSICAL EXAMINATION: ABDOMEN: Abdominal guarding. Tenderness specifically in the left upper quadrant. Hypoactive bowel sounds. EXTREMITIES: Left arm contracted. There is a pillow left leg. He does not move much. He has difficulty following commands at this time. The right upper and lower extremity he can move. NEUROLOGIC: Oriented to name only. Sensory is intact. SKIN: Warm, dry, intact. LABORATORY DATA: White blood cells 18,000, hemoglobin 9, hematocrit 28, platelet count 321,000. INR is 1.14, PTT is 29.7. ABGs on room air: pH 7.46, pCO2 29, PO2 52, bicarb 22, base excess - 2.5, saturation 89%. Lactate 0.9. BMP: Sodium 139, potassium 5.7, BUN 40, creatinine 2.6, glucose 192, calcium 9.2, bilirubin 0.50, AST 18, ALT 12, alkaline phosphatase 156. CK is 194. Her troponin is 94. Albumin 3.8. Lactate 2.5. Urinalysis: 50 protein, trace blood, otherwise negative. Influenza negative. Still waiting to get blood cultures. IMAGING: Abdominal pelvic CT: Left lower lobe collapse, moderate left pleural effusion, constipation, diverticulosis coli, severe diffuse vascular disease. Chest x- ray: Dense opacification of the left lung base. ASSESSMENT AND PLAN: 1. Acute pain in the left upper quadrant abdomen and is most likely related to either 1) Constipation; or 2) Left lower lobe collapse of the lung, but pain tends to be worse with inspiration, so most likely due to the lung. He is tolerating morphine as this is helping with his pain, helps him to rest. 2. Left lower lobe lung collapse along with moderate-sized pleural effusion. In addition to that, has acute hypoxemic respiratory failure, tolerating oxygen. May benefit from thoracentesis. We will transfer to [facility] for further treatment and evaluation. Nebulizers have been added. 3. Constipation. We will give him Kayexalate as he does actually have an elevated potassium and this should help with the constipation as well. Will add Patricia Colace as a stool softener. 4. Suspicion for sepsis. He has elevated lactate, elevated white blood cell count. He has fever. We will start him on broad-spectrum antibiotics, consistent with Rocephin and Zyvox given his kidney dysfunction. Will have serial lactate and for now, will just give the 1 L of saline and monitor very closely for any worsening respiratory distress from this. May have to stop it, but will be able to watch it more closely in the PVC. 5. Acute kidney injury on chronic kidney disease stage III. Again, he will get some IV fluids, but there is some concern that maybe there is some congestive heart failure. 6. Slightly elevated troponin. We will do serial troponins. He has not had a proBNP. We will add that to the labs. It looks like his last echocardiogram was in 2012. Ejection fraction was normal at that time. Given the trace edema and the pleural effusion, we will go ahead and get an echocardiogram to evaluate heart function. 7. Diabetes mellitus type 2. We will do pattern blood glucoses and insulin. 8. Hypertension. Currently waiting for home medications to be reconciled before we resume that. 9. Hyperlipidemia. We will continue statin once it is verified. 10. Benign prostatic hypertrophy. Again, will continue home medications once they are verified. 11. History of cerebrovascular accident. He has got left arm contracture at this time. 12. Deep venous thrombosis prophylaxis. Sequential compression devices. Dictated by SOURAV Fowler for Gilberto Polanco MD cc: SOURAV Fowler MD Amit V. Vora, MD MTDD
[2019-09-29] MEDS: ZYVOX 600 MG/D5W 600 MG/300 ML IVPB IV SCH ×2 (12:00→22:14)
[2019-09-29] MEDS: ATROVENT NEB INH SCH ×4 (12:19→23:05)
[2019-09-29] MEDS: XOPENEX NEB INH SCH ×4 (12:19→23:05)
--- NOTE | 2019-09-29 12:56 | HISTORY AND PHYSICAL ---
PRIMARY CARE PROVIDER: Brendan Guadalupe MD. CHIEF COMPLAINT: Left upper quadrant abdominal pain and shortness of breath. HISTORY OF PRESENT ILLNESS: Mr. Sacha Ray is an 84-year-old male with a medical history of CVA and left-sided weakness or hemiparesis back in 2005, dementia, diabetes mellitus type 2, hypertension, CKD stage 3, who presents here from [facility]. According to the daughter, who is his power of territory manager that is at the bedside, states that she is unsure when he last had a bowel movement. She also stated that [facility] called to say that he had 103.8 fever last night and they were treating that. Given that he was continuing to moan in pain, he was brought to the emergency department. An abdominal and pelvic CT was performed. What was found on the abdominal and pelvic CT was constipation along with left lower lobe collapse and a moderate left pleural effusion, and given his pain is in the left upper quadrant area and worst with inspiration, even though he is unable to say that he moans every time he breathes easy in. We will transfer him to [facility] and update Dr. Guadalupe about his patient. He may very well need a thoracentesis. The fever and elevated white count, there is no obvious source at this time. It does not appear to be pneumonia, but that could be all from that left- sided collapse. The urine is clear. Blood cultures have been ordered and he does have an elevated lactate. Currently, vital signs are still stable. He is Do Not Resuscitate level 1. PAST MEDICAL HISTORY: 1. CVA with left-sided hemiparesis in 2005. 2. Dementia. 3. Diabetes mellitus type 2. 4. Hypertension. 5. BPH. 6. Hyperlipidemia. 7. Seasonal allergies. 8. CKD stage 3. 9. Chronic anemia. SURGICAL HISTORY: None. SOCIAL HISTORY: Daughter states no tobacco, alcohol, or illicit drug use. He has currently been living in [facility] since April 2019. FAMILY HISTORY: Obtained from the daughter who states his mother had a heart attack and stroke and the father had a stroke. ALLERGIES: No known drug allergies. HOME MEDICATIONS: Not reconciled yet. REVIEW OF SYSTEMS: Complains of pain, but really difficult to get information from him. PHYSICAL EXAMINATION: VITAL SIGNS: Temperature is 99.9 degrees, heart rate 85, respiratory rate 23, blood pressure 142/75, O2 saturation 92% on 2 L nasal cannula. GENERAL: Mr. Sacha Ray is an 84-year-old male. He is in acute distress. He is moaning and groaning with each inspiration, has difficulty answering questions. HEENT: Atraumatic, normocephalic. Pupils equal, round, reactive to light. Extraocular movements intact. Mucous membranes are dry. NECK: Trachea midline. CARDIOVASCULAR: S1, S2. Regular rate and rhythm. No rubs, gallops, murmurs. He has got trace lower extremity edema, +2 dorsalis and radial pulses. Negative JVD and carotid bruits. PULMONARY: Absent breath sounds on the left. Expiratory wheezes noted with anterior auscultation. Tolerating 2 L nasal cannula. GASTROINTESTINAL: PLEASE SEE 2ND DICTATION. THIS DICTATION GOT CUT OFF SHORT. Dictated by SOURAV Fowler for Gilberto Polanco MD cc: SOURAV Fowler MD [facility]
[2019-09-29] MEDS: HUMULIN R (PARKWAY) SUBQ SCH ×2 (16:00→20:45)
[2019-09-29] MEDS ORDERED: ATIVAN IV ONE (16:17)
--- NOTE | 2019-09-29 19:26 | ECHO REPORT ---
ORDER DATE: 09/29/2019 INDICATION: Dyspnea, pleural effusion. REQUESTING PROVIDER: Hospitalist service. M-MODE MEASUREMENTS: Left ventricle end diastole: 4.3. Left ventricle end systole: 2.9. Posterior wall: 1.2. Interventricular septum: 1.2. Left atrium: 3.6. Aortic diameter: 3.5. SUMMARY OF 2-DIMENSIONAL IMAGIN. Left ventricular function appears to be normal. The study is very limited. Ejection fraction is probably on the order of 60%. 2. The aortic valve appears to be mildly sclerotic with no stenosis. 3. The mitral annulus shows calcification. The mitral valve appears to be grossly normal. Doppler evaluation of these valves is very limited. There is no obvious significant regurgitation. 4. The pulmonic valve is really not well visualized. 5. The tricuspid valve is also very suboptimally visualized. 6. There is a prominent epicardial fat pad, and there is a left pleural effusion. 7. The left atrium is probably normal. 8. The right-sided chambers are not well visualized. They appear to be grossly within normal range. 9. Pulse wave Doppler of mitral inflow shows reversal of the E/A ratio. 10.Tissue Doppler is difficult to ascertain. There is impaired left ventricular relaxation, or presumed to be. Clinical correlation recommended. cc: MD Azucena Saunders CRNP Amit V. Vora, MD
[2019-09-29] MEDS: MORPHINE IV PRN (20:37)
[2019-09-29] MEDS: PERICOLACE PO SCH (20:39)
--- NOTE | 2019-09-30 01:11 | HISTORY AND PHYSICAL ---
ADDENDUM: The patient presented to the hospital with abdominal pain and nausea. He does have a pleural effusion. Lactate level was elevated at 2.5. Fever of 103 degrees. We are going to admit, treat for sepsis. Place on antibiotics, fluids, and will follow cc: MD Brendan Bahena MD MTDD
[2019-09-30] MEDS: MORPHINE IV PRN ×3 (02:36→21:28)
[2019-09-30] MEDS: XOPENEX NEB INH SCH ×6 (03:29→23:57)
[2019-09-30] MEDS: ATROVENT NEB INH SCH ×6 (03:29→23:57)
[2019-09-30] MEDS: HUMULIN R (PARKWAY) SUBQ SCH ×5 (06:24→21:02)
[2019-09-30 06:42] LABS: BASO# 0.02 X1000 (0.0-0.2); BASO% 0.1 % (0.0-0.8); EOS# 0.18 X1000 (0.0-0.7); EOS% 0.8 % (0.0-10.0); HEMATOCRIT 27.7 % (42.0-52.0); IMM GRAN# 0.04 X1000 (0.0-0.04); IMM GRAN% 0.2 % (0.0-0.5); LYMPH# 1.33 X1000 (1.2-3.4); LYMPH% 5.6 % (20.5-51.1); MCHC 32.5 g/dL (33-37); MCV 95.5 FL (81-99); MONO# 1.19 X1000 (0.11-0.59); NEUT# 20.98 X1000 (1.4-6.5); NEUT% 88.3 % (42.2-75.2); PLT 289 X1000 (130-400); RDW 12.5 % (11.5-14.5); WBC 23.74 X1000 (4.8-10.8)
[2019-09-30 07:20] LABS: LYMPHS 4 % (21-51); SEGS 92 % (42-75)
[2019-09-30 07:25] LABS: ALB/GLOB RATIO 0.8; ALBUMIN 3.2 g/dL (3.5-5.0); CALCIUM 9.2 mg/dL (8.8-10.2); CREATININE 2.6 mg/dL (0.7-1.2); POTASSIUM 4.9 mmol/L (3.5-5.1); TOTAL BILIRUBIN 0.4 mg/dL (0.20-1.00)
[2019-09-30] MEDS: ROCEPHIN 1 GM in NS 50 ML IV SCH (08:39)
[2019-09-30] MEDS: PERICOLACE PO SCH ×2 (08:40→20:56)
[2019-09-30] MEDS ORDERED: SENOKOT PO PRN (09:20)
[2019-09-30] MEDS: ZYVOX 600 MG/D5W 600 MG/300 ML IVPB IV SCH ×3 (10:00→21:02)
--- NOTE | 2019-09-30 10:01 | Diag Imaging Result Doc PS360 ---
CHEST-2 VIEWS - 09/30/2019 INDICATION: left effusion COMPARISON: 09/29/2019 FINDINGS: Lung volumes are severely low. There has been enlargement of the left pleural effusion which is moderate to large. The right lung appears grossly clear. There is probably cardiomegaly. IMPRESSION: Enlarging left pleural effusion. Severely low lung volumes. Electronically signed by Tito Benson 09/30/2019 9:59 AM
--- NOTE | 2019-09-30 10:08 | PROGRESS NOTE ---
DATE: 09/30/2019 Mr. Ray has left-sided pneumonia with pleural effusion. He is on linezolid IV and is getting the respiratory therapy. We are repeating the chest x-ray. Depending on the amount of fluid, we will decide about pulmonary consultation for possible thoracentesis. cc: Brendan Guadalupe MD
--- NOTE | 2019-09-30 15:44 | PULMONOLOGY CONSULTATION ---
DATE: 09/30/2019 REQUESTING PROVIDER: Brendan Guadalupe MD. REASON FOR CONSULTATION: Large pleural effusion. HISTORY OF PRESENT ILLNESS: This is an 84-year-old male with a medical history of cerebrovascular accident with left-sided hemiparesis, dementia, diabetes mellitus type 2, hypertension, chronic kidney disease stage III, hyperlipidemia, and benign prostatic hyperplasia. He presented to the ER yesterday afternoon with acute left upper quadrant abdominal pain, shortness of breath and fever. Initial workup in the ER revealed left lower lung collapse along with moderate sized pleural effusion. The patient has been admitted to [facility] for further evaluation and management. The patient currently is lying in bed with no acute distress noted. His eyes are closed. He is on non-rebreather 100% at this time. There is no family at the bedside. I called the patient's name. He woke up and he started yelling and keeps stating, "Leave me alone." The patient has a soft restraint on his right upper extremity. He has left-sided hemiparesis secondary to cerebrovascular accident. Respiratory therapy reported that the patient was agitated with breathing treatment too. The patient did not answer any questions. He does not follow any commands either. All other information is obtained from the E-chart. PAST MEDICAL HISTORY: 1. Cerebrovascular accident with left-sided hemiparesis in 2005. 2. Dementia. 3. Diabetes mellitus type 2. 4. Hypertension. 5. Benign prostatic hyperplasia. 6. Hyperlipidemia. 7. Seasonal allergies. 8. Chronic kidney disease stage III. 9. Chronic back pain. 10. Chronic anemia. PAST SURGICAL HISTORY: None. SOCIAL HISTORY: The patient lives in [facility]. Per H and P, the patient's daughter states the patient has no tobacco, alcohol or illicit drug use. FAMILY HISTORY: Positive for heart disease, stroke. ALLERGIES: No known drug allergies. REVIEW OF SYSTEMS: Unable to be obtained. PHYSICAL EXAMINATION: Vital Signs: Temperature 98.1 degrees, blood pressure 148/82, pulse 86, respiratory rate 20, oxygen saturation 94% on Venturi mask 50%. General: Well- nourished, lying in bed, resting initially. After waking, became agitated and started yelling. No family at the bedside. HEENT: Atraumatic, normocephalic. Trachea midline. Mucosa pink and slightly dry. Pupils equal, round, reactive to light. Respiratory: No increased work of breathing. No accessory muscle use noted. Clear to auscultation with diminished breathing sounds bilaterally. No wheezing noted at this time. Cardiovascular: Regular rate and rhythm with S1, S2 appreciated. Gastrointestinal: Unable to assess as patient is agitated. Extremities: Bilateral lower extremity edema. No cyanosis. No clubbing. Dorsalis pedis 2+ bilaterally. Left upper extremity weakness and contracture noted. Neurologic: Unable to assess. The patient is very agitated and yelling at this time. LABORATORY DATA: White blood cell 23.74, hemoglobin 9.0, hematocrit 27.7, platelet 289,000. Sodium 133, potassium 4.9, chloride 97, carbon dioxide 21, BUN 39, creatinine 2.6, glucose 129. IMAGING DATA: CT abdomen and pelvis without contrast on 09/29/2019 revealed left lower lobe collapse with moderate left pleural effusion, severe diffuse vascular disease, constipation, diverticulosis coli. Chest x-ray this morning showed enlarged left pleural effusion and severe lower lung volumes. ASSESSMENT: 1. This is an 84-year-old male with a medical history of cerebrovascular accident with left-sided hemiparesis, dementia, diabetes mellitus type 2, hypertension, hyperlipidemia, chronic kidney disease. He has been admitted to [facility] since 09/29/2019 with acute rest hypoxemic respiratory failure. 2. Left lower lobe lung collapse with moderate-sized pleural effusion. 3. Possible pneumonia. The patient has leukocytosis with white blood cells up to 23.74 this morning and fever prior to admission. The highest temperature since admission is 99.9. Antibiotic has been started since admission. 4. Constipation with left upper quadrant abdominal pain and nausea. 5. DNR 1. PLAN: 1. Continue supplemental oxygen as needed. We titrate supplemental oxygen to patient's needs per clinical protocols. We will monitor patient's response closely. We will check chest x-ray and ABG if indicated. 2. Antibiotic Linezolid has been started since admission. Antibiotic, ceftriaxone, added this morning. 3. Bronchodilators including Xopenex and Atrovent have been started q.4 hours schedule. 4. We are considering thoracentesis. At this time, we are holding Plavix for 7 days before procedure. 5. Further recommendations pending hospital course. Thank you for the courtesy of this consult. Dr. Chirinos did the examination, evaluation, management and orders. SOURAV did the dictation for Dr. Chirinos according to his direction. Total examination time in minutes 31. Dictated by SOURAV Vargas for Sasha Chirinos MD cc: SOURAV Vargas MD Amit V. Vora, MD [facility]
[2019-09-30] MEDS: DITROPAN PO SCH (20:56)
[2019-09-30] MEDS: LANTUS INSULIN SUBQ SCH (20:56)
[2019-09-30] MEDS: LIPITOR PO SCH (20:56)
[2019-10-01] MEDS: XOPENEX NEB INH SCH ×6 (04:07→23:18)
[2019-10-01] MEDS: ATROVENT NEB INH SCH ×6 (04:07→23:18)
[2019-10-01] MEDS: HUMULIN R (PARKWAY) SUBQ SCH ×4 (06:30→20:48)
[2019-10-01 07:04] LABS: BASO# 0.01 X1000 (0.0-0.2); BASO% 0.1 % (0.0-0.8); EOS# 0.43 X1000 (0.0-0.7); EOS% 2.5 % (0.0-10.0); HEMATOCRIT 26.7 % (42.0-52.0); HEMOGLOBIN 8.6 g/dL (14.0-18.0); IMM GRAN# 0.02 X1000 (0.0-0.04); IMM GRAN% 0.1 % (0.0-0.5); LYMPH# 1.01 X1000 (1.2-3.4); LYMPH% 5.8 % (20.5-51.1); MCH 30.6 PG (27-31); MCHC 32.2 g/dL (33-37); MONO# 0.84 X1000 (0.11-0.59); MONO% 4.8 % (1.7-9.3); MPV 9.8 FL (7.4-10.4); NEUT# 15.18 X1000 (1.4-6.5); NEUT% 86.7 % (42.2-75.2); PLT 291 X1000 (130-400); RBC 2.81 XMIL (4.7-6.1); RDW 12.3 % (11.5-14.5); WBC 17.49 X1000 (4.8-10.8)
[2019-10-01 07:25] LABS: ALB/GLOB RATIO 0.8; ALBUMIN 2.9 g/dL (3.5-5.0); CALCIUM 8.8 mg/dL (8.8-10.2); CREATININE 2.9 mg/dL (0.7-1.2); POTASSIUM 4.5 mmol/L (3.5-5.1); TOTAL BILIRUBIN 0.3 mg/dL (0.20-1.00); TOTAL PROTEIN 6.4 g/dL (6.3-8.3)
[2019-10-01] MEDS: ROCEPHIN 1 GM in NS 50 ML IV SCH (07:39)
[2019-10-01] MEDS: FLOMAX PO SCH (08:27)
[2019-10-01] MEDS: ZYRTEC PO SCH (08:28)
[2019-10-01] MEDS: THERA M PLUS PO SCH (08:28)
[2019-10-01] MEDS: TENORMIN PO SCH (08:28)
[2019-10-01] MEDS: DITROPAN PO SCH ×2 (08:28→20:56)
[2019-10-01] MEDS: PERICOLACE PO SCH ×2 (08:28→20:56)
[2019-10-01] MEDS: NORVASC PO SCH (08:31)
[2019-10-01] MEDS ORDERED: PLAVIX PO SCH (09:00)
[2019-10-01 09:54] LABS: ALLEN TEST NO; BE -2.9 mmoll (-3.0-3.0); BLOOD TYPE ARTERIAL; HCO3-(ACT) 22.7 mmoll (20.0-26.0); METHB 0.3 % (0.0-1.5); O2(CT) 8.6 mL/dL (15.0-23.0); PCO2(98.6) 29 mmHg (35-45); PO2(98.6) 86 mmHg (60-100); SAMPLE BLOOD; SAO2 98.7 % (95.0-100.0); THB 6.2 g/dL (11.5-17.4); pH(98.6) 7.46 (7.35-7.45)
[2019-10-01 09:55] LABS: MODALITY NRB
[2019-10-01] MEDS: ZYVOX 600 MG/D5W 600 MG/300 ML IVPB IV SCH ×2 (10:13→21:35)
--- NOTE | 2019-10-01 12:00 | PROGRESS NOTE ---
DATE: 10/01/2019 SUBJECTIVE: Mr. Ray had a repeat chest x-ray done yesterday. He has increasing fluid and possible infiltrate or underlying infiltrate. He is being followed by Dr. Chirinos for his pulmonary problems. OBJECTIVE: He has elevated white count which was 17.14 this morning. Hemoglobin 8.6, hematocrit 26.7. He has had to be restrained yesterday as he was pulling on his mask. He is on 100% Venti mask. His arterial blood gases this morning revealed a PO2 of 86, pH 7.46. His lactate level was 0.9. PLAN: He is getting IV linezolid as well as ceftriaxone which we are going to continue. Overall prognosis seems poor is DNR. He has he has a history of stroke with left-sided hemiplegia, diabetes, hypertension and mild renal failure. We will add a banana bag today as he feels like he is dehydrated and he needs more nutrition as he cannot eat much. cc: Brendan Guadalupe MD
[2019-10-01] MEDS: M.V.I.-12 10 ML, FOLIC ACID 1 MG, MAGNESIUM SULFATE 1 GM, THIAMINE 100 MG in NS 1,000 ML IV SCH ×2 (13:18→13:23)
--- NOTE | 2019-10-01 18:07 | PROVIDER PROGRESS NOTE ---
Progress Note Dr. Chirinos Progress Note/Pulmonary and or critical care Subjective: The patient is lying in bed. Family at bedside. Objective: Vital Signs: T 97.9 (no fever in last 24 hours), ID 78, RR 20, BP 108/55 and SaO2 95% on NC 3L. Physical Examination: Vital signs: Temperature 98.1 degrees, blood pressure 148/82, pulse 86, respiratory rate 20, oxygen saturation 94% on Venturi mask 50%. General: Well-nourished, lying in bed, resting initially. Family at the bedside. HEENT: Atraumatic, normocephalic. Trachea midline. Mucosa pink and slightly dry. Pupils equal, round, reactive to light. Respiratory: No increased work of breathing. No accessory muscle use noted. Clear to auscultation with diminished breathing sounds bilaterally. No wheezing noted at this time. Cardiovascular: Regular rate and rhythm with S1, S2 appreciated. Gastrointestinal: Unable to assess as patient is agitated. Extremities: Bilateral lower extremity edema. No cyanosis. No clubbing. Dorsalis pedis 2+ bilaterally. Left upper extremity weakness and contracture noted. Neuro: Unable to assess. Dr. Chirinos did assessment and management. SOURAV Hawk did scribing only. LABS and Radiology: Laboratory Results 09/30/19 10/01/19 10/01/19 20:09 06:12 06:23 WBC RBC Hgb Hct MCV MCH MCHC RDW Std Deviation Plt Count MPV Immature Gran % (Auto) Neut % (Auto) Lymph % (Auto) [place] % (Auto) Eos % (Auto) Baso % (Auto) Immature Gran # (Auto) Neut # (Auto) Lymph # (Auto) [place] # (Auto) Eos # (Auto) Baso # (Auto) Specimen Type Sample Site pH pCO2 pO2 HCO3 Base Excess Oxyhemoglobin ABG O2 Sat (Calculated) ABG O2 Saturation ABG Carboxyhemoglobin ABG Methemoglobin Srikanth Test A-a O2 Difference Total Hemoglobin Lactate Liter Flow Blood Gas Modality FiO2 % Sodium 135 L Potassium 4.5 Chloride 100 Carbon Dioxide 23 L Anion Gap 12 BUN 43 H Creatinine 2.9 H Estimated GFR/1.73 m2 21 BUN/Creatinine Ratio 15 Glucose 88 POC Glucose 106 H 95 Calculated Osmolality 280 Calcium 8.8 Magnesium 2.0 Total Bilirubin 0.30 AST 51 H ALT 16 Alkaline Phosphatase 182 H Total Protein 6.4 Albumin 2.9 L Globulin 3.5 Albumin/Globulin Ratio 0.8 10/01/19 10/01/19 10/01/19 06:23 09:45 11:00 WBC 17.49 H RBC 2.81 L Hgb 8.6 L Hct 26.7 L MCV 95.0 MCH 30.6 MCHC 32.2 L RDW Std Deviation 12.3 Plt Count 291 MPV 9.8 Immature Gran % (Auto) 0.1 Neut % (Auto) 86.7 H Lymph % (Auto) 5.8 L [place] % (Auto) 4.8 Eos % (Auto) 2.5 Baso % (Auto) 0.1 Immature Gran # (Auto) 0.02 Neut # (Auto) 15.18 H Lymph # (Auto) 1.01 L [place] # (Auto) 0.84 H Eos # (Auto) 0.43 Baso # (Auto) 0.01 Specimen Type ARTERIAL Sample Site R BRACHIAL pH 7.46 H pCO2 29 L pO2 86 HCO3 22.7 Base Excess -2.9 Oxyhemoglobin 97.0 ABG O2 Sat (Calculated) 8.6 L ABG O2 Saturation 98.7 ABG Carboxyhemoglobin 1.40 ABG Methemoglobin 0.3 Srikanth Test NO A-a O2 Difference 591.0 Total Hemoglobin 6.2 L Lactate 0.90 Liter Flow 15.0 Blood Gas Modality NRB FiO2 % 100.0 Sodium Potassium Chloride Carbon Dioxide Anion Gap BUN Creatinine Estimated GFR/1.73 m2 BUN/Creatinine Ratio Glucose POC Glucose 123 H Calculated Osmolality Calcium Magnesium Total Bilirubin AST ALT Alkaline Phosphatase Total Protein Albumin Globulin Albumin/Globulin Ratio 10/01/19 15:15 WBC RBC Hgb Hct MCV MCH MCHC RDW Std Deviation Plt Count MPV Immature Gran % (Auto) Neut % (Auto) Lymph % (Auto) [place] % (Auto) Eos % (Auto) Baso % (Auto) Immature Gran # (Auto) Neut # (Auto) Lymph # (Auto) [place] # (Auto) Eos # (Auto) Baso # (Auto) Specimen Type Sample Site pH pCO2 pO2 HCO3 Base Excess Oxyhemoglobin ABG O2 Sat (Calculated) ABG O2 Saturation ABG Carboxyhemoglobin ABG Methemoglobin Srikanth Test A-a O2 Difference Total Hemoglobin Lactate Liter Flow Blood Gas Modality FiO2 % Sodium Potassium Chloride Carbon Dioxide Anion Gap BUN Creatinine Estimated GFR/1.73 m2 BUN/Creatinine Ratio Glucose POC Glucose 146 H Calculated Osmolality Calcium Magnesium Total Bilirubin AST ALT Alkaline Phosphatase Total Protein Albumin Globulin Albumin/Globulin Ratio ASSESSMENT: 1. This is an 84-year-old male with a medical history of cerebrovascular accident with left-sided hemiparesis, dementia, diabetes mellitus type 2, hypertension, hyperlipidemia, chronic kidney disease. He has been admitted to [facility] since 09/29/2019 with acute rest hypoxemic respiratory failure. 2. Left lower lobe lung collapse with moderate-sized pleural effusion. 3. Possible pneumonia. The patient has leukocytosis. Antibiotic has been started since admission. 4. Constipation with left upper quadrant abdominal pain and nausea. 5. DNR 1. PLAN: 1. Continue supplemental oxygen as needed. We titrate supplemental oxygen to patient's needs per clinical protocols. We will monitor patient's response closely. We will check chest x-ray and ABG if indicated. 2. Continue antibiotics 3. Bronchodilators including Xopenex and Atrovent have been started q.4 hours schedule. 4. We are considering thoracentesis. At this time, we are holding Plavix for 7 days before procedure. 5. Further recommendations pending hospital course. Total examination time in minutes 32. Dr. Chirinos did assessment and management. SOURAV Hawk did scribing only. Labs and Radiology:
[2019-10-01] MEDS: LANTUS INSULIN SUBQ SCH (20:56)
[2019-10-01] MEDS: LIPITOR PO SCH (20:56)
[2019-10-01] MEDS ORDERED: BLISTEX MEDICATED BERRY LIP BALM TOP PRN (21:04)
[2019-10-02] MEDS: XOPENEX NEB INH SCH ×6 (03:10→22:52)
[2019-10-02] MEDS: ATROVENT NEB INH SCH ×6 (03:10→22:52)
[2019-10-02 05:48] LABS: ALLEN TEST YES; BE -3.9 mmoll (-3.0-3.0); BLOOD TYPE ARTERIAL; HCO3-(ACT) 21.9 mmoll (20.0-26.0); MODALITY NRB; O2(CT) 11.2 mL/dL (15.0-23.0); O2HB 96.5 % (95.0-99.0); PCO2(98.6) 34 mmHg (35-45); PO2(98.6) 94 mmHg (60-100); SAMPLE BLOOD; SAO2 98.4 % (95.0-100.0); THB 8.1 g/dL (11.5-17.4); pH(98.6) 7.39 (7.35-7.45)
[2019-10-02] MEDS: MORPHINE IV PRN (06:14)
[2019-10-02 06:27] LABS: BASO# 0.01 X1000 (0.0-0.2); BASO% 0.1 % (0.0-0.8); EOS# 0.46 X1000 (0.0-0.7); EOS% 3.3 % (0.0-10.0); IMM GRAN# 0.04 X1000 (0.0-0.04); IMM GRAN% 0.3 % (0.0-0.5); LYMPH# 1.19 X1000 (1.2-3.4); LYMPH% 8.5 % (20.5-51.1); MCH 30.4 PG (27-31); MCV 95.1 FL (81-99); MONO# 0.93 X1000 (0.11-0.59); MONO% 6.6 % (1.7-9.3); MPV 9.7 FL (7.4-10.4); NEUT# 11.41 X1000 (1.4-6.5); NEUT% 81.2 % (42.2-75.2); PLT 294 X1000 (130-400); RBC 2.63 XMIL (4.7-6.1); RDW 12.4 % (11.5-14.5); WBC 14.04 X1000 (4.8-10.8)
[2019-10-02] MEDS: HUMULIN R (PARKWAY) SUBQ SCH ×5 (06:30→20:43)
[2019-10-02 06:50] LABS: ALB/GLOB RATIO 0.7; ALBUMIN 2.5 g/dL (3.5-5.0); CALCIUM 8.8 mg/dL (8.8-10.2); CREATININE 2.9 mg/dL (0.7-1.2); MAGNESIUM 2.4 mg/dL (1.5-2.7); POTASSIUM 4.3 mmol/L (3.5-5.1); TOTAL BILIRUBIN 0.33 mg/dL (0.20-1.00); TOTAL PROTEIN 6.2 g/dL (6.3-8.3)
[2019-10-02] MEDS: M.V.I.-12 10 ML, FOLIC ACID 1 MG, MAGNESIUM SULFATE 1 GM, THIAMINE 100 MG in NS 1,000 ML IV SCH (08:27)
[2019-10-02] MEDS: FLOMAX PO SCH (08:28)
[2019-10-02] MEDS: NORVASC PO SCH (08:28)
[2019-10-02] MEDS: ROCEPHIN 1 GM in NS 50 ML IV SCH (08:28)
[2019-10-02] MEDS: TENORMIN PO SCH (08:28)
[2019-10-02] MEDS: PERICOLACE PO SCH ×2 (08:28→20:37)
[2019-10-02] MEDS: THERA M PLUS PO SCH (08:28)
[2019-10-02] MEDS: DITROPAN PO SCH ×2 (08:28→20:37)
[2019-10-02] MEDS: ZYRTEC PO SCH (08:29)
[2019-10-02] MEDS: ZYVOX 600 MG/D5W 600 MG/300 ML IVPB IV SCH ×2 (09:32→22:45)
--- NOTE | 2019-10-02 10:56 | PROGRESS NOTE ---
DATE: 10/02/2019 OBJECTIVE: Vital signs: Temperature 100.2 degrees axillary, heart rate 82, respirations 22, blood pressure 90/54, O2 saturation 100% on nonrebreather mask. The patient is trying to pull the mask off and asking why this is on. When explained why, he continues to want the mask off. LABORATORY DATA: Reveals blood gases: pH 7.39, pCO2 34, and PO2 94 on non-rebreather with 100% O2. Hematocrit has slowly dropped over the past few days and is 25 this morning. White blood count 56224. Lungs reveal bilateral rhonchi and wheezes. Blood cultures have revealed no growth at 48 hours. He is on Rocephin and linezolid treatment of pneumonia. He is DNR level 1. PLAN: Continue supportive care and intravenous antibiotics. Also, nebulizer treatments are being given. cc: MD Brendan Silveira MD
[2019-10-02] MEDS ORDERED: NS 500 ML IV SCH (11:30)
--- NOTE | 2019-10-02 16:41 | PROVIDER PROGRESS NOTE ---
Progress Note Dr. Chirinos Progress Note/Pulmonary and or critical care Subjective: The patient is lying in bed. No family at bedside. Objective: Vital Signs: T 98.6 (no fever in last 24 hours), VT 95, RR 20, BP 94/51 and SaO2 96% on NC 3L/non-rebreather Physical Examination: General: Well-nourished, lying in bed, resting initially. Family at the bedside. HEENT: Atraumatic, normocephalic. Trachea midline. Mucosa pink and slightly dry. Pupils equal, round, reactive to light. Respiratory: No increased work of breathing. No accessory muscle use noted. Clear to auscultation with diminished breathing sounds bilaterally. No wheezing noted at this time. Cardiovascular: Regular rate and rhythm with S1, S2 appreciated. Gastrointestinal: Unable to assess as patient is agitated. Extremities: Bilateral lower extremity edema. No cyanosis. No clubbing. Dorsalis pedis 2+ bilaterally. Left upper extremity weakness and contracture noted. Neuro: Unable to assess. Dr. Chirinos did assessment and management. SOURAV Hawk did scribing only. LABS and Radiology: Laboratory Results 10/01/19 10/02/19 10/02/19 20:32 05:37 06:00 WBC RBC Hgb Hct MCV MCH MCHC RDW Std Deviation Plt Count MPV Immature Gran % (Auto) Neut % (Auto) Lymph % (Auto) [place] % (Auto) Eos % (Auto) Baso % (Auto) Immature Gran # (Auto) Neut # (Auto) Lymph # (Auto) [place] # (Auto) Eos # (Auto) Baso # (Auto) Specimen Type ARTERIAL Sample Site R RADIAL pH 7.39 pCO2 34 L pO2 94 HCO3 21.9 Base Excess -3.9 L Oxyhemoglobin 96.5 ABG O2 Sat (Calculated) 11.2 L ABG O2 Saturation 98.4 ABG Carboxyhemoglobin 0.90 ABG Methemoglobin 1.0 Srikanth Test YES A-a O2 Difference 577.0 Total Hemoglobin 8.1 L Lactate 1.10 Liter Flow 15.0 Blood Gas Modality NRB FiO2 % 100.0 Sodium 134 L Potassium 4.3 Chloride 101 Carbon Dioxide 19 L Anion Gap 14 BUN 42 H Creatinine 2.9 H Estimated GFR/1.73 m2 21 BUN/Creatinine Ratio 14 Glucose 60 L POC Glucose 93 Calculated Osmolality 277 Calcium 8.8 Magnesium 2.4 Total Bilirubin 0.33 AST 67 H ALT 28 Alkaline Phosphatase 122 Total Protein 6.2 L Albumin 2.5 L Globulin 3.7 Albumin/Globulin Ratio 0.7 Blood Type Antibody Screen Crossmatch 10/02/19 10/02/19 10/02/19 06:00 06:00 06:07 WBC 14.04 H RBC 2.63 L Hgb 8.0 L Hct 25.0 L MCV 95.1 MCH 30.4 MCHC 32.0 L RDW Std Deviation 12.4 Plt Count 294 MPV 9.7 Immature Gran % (Auto) 0.3 Neut % (Auto) 81.2 H Lymph % (Auto) 8.5 L [place] % (Auto) 6.6 Eos % (Auto) 3.3 Baso % (Auto) 0.1 Immature Gran # (Auto) 0.04 Neut # (Auto) 11.41 H Lymph # (Auto) 1.19 L [place] # (Auto) 0.93 H Eos # (Auto) 0.46 Baso # (Auto) 0.01 Specimen Type Sample Site pH pCO2 pO2 HCO3 Base Excess Oxyhemoglobin ABG O2 Sat (Calculated) ABG O2 Saturation ABG Carboxyhemoglobin ABG Methemoglobin Srikanth Test A-a O2 Difference Total Hemoglobin Lactate Liter Flow Blood Gas Modality FiO2 % Sodium Potassium Chloride Carbon Dioxide Anion Gap BUN Creatinine Estimated GFR/1.73 m2 BUN/Creatinine Ratio Glucose POC Glucose 46 L D Calculated Osmolality Calcium Magnesium Total Bilirubin AST ALT Alkaline Phosphatase Total Protein Albumin Globulin Albumin/Globulin Ratio Blood Type A POSITIVE Antibody Screen NEGATIVE Crossmatch See Detail 10/02/19 10/02/19 10/02/19 06:50 07:27 10:41 WBC RBC Hgb Hct MCV MCH MCHC RDW Std Deviation Plt Count MPV Immature Gran % (Auto) Neut % (Auto) Lymph % (Auto) [place] % (Auto) Eos % (Auto) Baso % (Auto) Immature Gran # (Auto) Neut # (Auto) Lymph # (Auto) [place] # (Auto) Eos # (Auto) Baso # (Auto) Specimen Type Sample Site pH pCO2 pO2 HCO3 Base Excess Oxyhemoglobin ABG O2 Sat (Calculated) ABG O2 Saturation ABG Carboxyhemoglobin ABG Methemoglobin Srikanth Test A-a O2 Difference Total Hemoglobin Lactate Liter Flow Blood Gas Modality FiO2 % Sodium Potassium Chloride Carbon Dioxide Anion Gap BUN Creatinine Estimated GFR/1.73 m2 BUN/Creatinine Ratio Glucose POC Glucose 96 D 138 H 159 H Calculated Osmolality Calcium Magnesium Total Bilirubin AST ALT Alkaline Phosphatase Total Protein Albumin Globulin Albumin/Globulin Ratio Blood Type Antibody Screen Crossmatch 10/02/19 15:46 WBC RBC Hgb Hct MCV MCH MCHC RDW Std Deviation Plt Count MPV Immature Gran % (Auto) Neut % (Auto) Lymph % (Auto) [place] % (Auto) Eos % (Auto) Baso % (Auto) Immature Gran # (Auto) Neut # (Auto) Lymph # (Auto) [place] # (Auto) Eos # (Auto) Baso # (Auto) Specimen Type Sample Site pH pCO2 pO2 HCO3 Base Excess Oxyhemoglobin ABG O2 Sat (Calculated) ABG O2 Saturation ABG Carboxyhemoglobin ABG Methemoglobin Srikanth Test A-a O2 Difference Total Hemoglobin Lactate Liter Flow Blood Gas Modality FiO2 % Sodium Potassium Chloride Carbon Dioxide Anion Gap BUN Creatinine Estimated GFR/1.73 m2 BUN/Creatinine Ratio Glucose POC Glucose 150 H Calculated Osmolality Calcium Magnesium Total Bilirubin AST ALT Alkaline Phosphatase Total Protein Albumin Globulin Albumin/Globulin Ratio Blood Type Antibody Screen Crossmatch ASSESSMENT: 1. This is an 84-year-old male with a medical history of cerebrovascular accident with left-sided hemiparesis, dementia, diabetes mellitus type 2, hypertension, hyperlipidemia, chronic kidney disease. He has been admitted to [facility] since 09/29/2019 with acute rest hypoxemic respiratory failure. 2. Left lower lobe lung collapse with moderate-sized pleural effusion. 3. Possible pneumonia. The patient has leukocytosis. Antibiotic has been started since admission. 4. Constipation with left upper quadrant abdominal pain and nausea. 5. DNR 1. PLAN: 1. Continue supplemental oxygen as needed. We titrate supplemental oxygen to patient's needs per clinical protocols. We will monitor patient's response closely. We will check chest x-ray and ABG if indicated. 2. Continue antibiotics 3. Bronchodilators including Xopenex and Atrovent have been started q.4 hours schedule. 4. We are considering thoracentesis. At this time, we are holding Plavix for 7 days before procedure. 5. Further recommendations pending hospital course. Total examination time in minutes 33
[2019-10-02] MEDS: LIPITOR PO SCH (20:37)
[2019-10-02] MEDS: LANTUS INSULIN SUBQ SCH (20:37)
[2019-10-03] MEDS: ATROVENT NEB INH SCH ×6 (02:44→23:14)
[2019-10-03] MEDS: XOPENEX NEB INH SCH ×6 (02:44→23:14)
[2019-10-03 05:56] LABS: BASO# 0.02 X1000 (0.0-0.2); BASO% 0.1 % (0.0-0.8); EOS# 0.19 X1000 (0.0-0.7); EOS% 1.3 % (0.0-10.0); HEMOGLOBIN 9.2 g/dL (14.0-18.0); IMM GRAN# 0.03 X1000 (0.0-0.04); IMM GRAN% 0.2 % (0.0-0.5); LYMPH# 0.91 X1000 (1.2-3.4); LYMPH% 6.1 % (20.5-51.1); MCH 30.5 PG (27-31); MCHC 32.9 g/dL (33-37); MCV 92.7 FL (81-99); MONO# 0.89 X1000 (0.11-0.59); MPV 9.2 FL (7.4-10.4); NEUT# 12.87 X1000 (1.4-6.5); NEUT% 86.3 % (42.2-75.2); PLT 276 X1000 (130-400); RBC 3.02 XMIL (4.7-6.1); RDW 13.2 % (11.5-14.5); WBC 14.91 X1000 (4.8-10.8)
[2019-10-03 06:29] LABS: ALB/GLOB RATIO 0.8; ALBUMIN 2.7 g/dL (3.5-5.0); CALCIUM 8.7 mg/dL (8.8-10.2); CREATININE 2.8 mg/dL (0.7-1.2); MAGNESIUM 2.5 mg/dL (1.5-2.7); POTASSIUM 3.7 mmol/L (3.5-5.1); TOTAL BILIRUBIN 0.37 mg/dL (0.20-1.00); TOTAL PROTEIN 6.1 g/dL (6.3-8.3)
[2019-10-03 06:35] LABS: EOS 1 % (1-10); LYMPHS 7 % (21-51); MONO 4 % (1-9); SEGS 88 % (42-75)
[2019-10-03] MEDS: HUMULIN R (PARKWAY) SUBQ SCH ×4 (06:42→21:55)
[2019-10-03] MEDS: MIRALAX PO SCH ×2 (08:18→21:56)
[2019-10-03] MEDS: M.V.I.-12 10 ML, FOLIC ACID 1 MG, MAGNESIUM SULFATE 1 GM, THIAMINE 100 MG in NS 1,000 ML IV SCH (08:19)
[2019-10-03] MEDS: THERA M PLUS PO SCH (08:20)
[2019-10-03] MEDS: DITROPAN PO SCH ×2 (08:20→21:55)
[2019-10-03] MEDS: FLOMAX PO SCH (08:20)
[2019-10-03] MEDS: ZYRTEC PO SCH (08:20)
[2019-10-03] MEDS: NORVASC PO SCH (08:20)
[2019-10-03] MEDS: TENORMIN PO SCH (08:20)
[2019-10-03] MEDS: ROCEPHIN 1 GM in NS 50 ML IV SCH (08:20)
[2019-10-03] MEDS: PERICOLACE PO SCH ×2 (08:20→21:55)
[2019-10-03] MEDS: ZYVOX 600 MG/D5W 600 MG/300 ML IVPB IV SCH ×2 (09:11→21:56)
--- NOTE | 2019-10-03 09:23 | PROGRESS NOTE ---
DATE: 10/03/2019 VITAL SIGNS: Temperature 98.2 degrees, heart rate 78, respirations 19, blood pressure 128/57, O2 saturation on 5 L nasal oxygen 92%. LABORATORY: Hemoglobin 9.2, hematocrit 28.0, white blood count 14,900 with 86% neutrophils. Sodium 130, potassium 3.7, BUN 46, creatinine 2.8, glucose 167, magnesium 8.7, total protein 6.1, albumin 2.7. The patient is eating poorly. He has pneumonia and is level 1 Do Not Resuscitate. PLAN: Continue current therapy with antibiotics and nebulizer treatments. cc: MD Brendan Silveira MD
[2019-10-03] MEDS: MORPHINE IV PRN (11:16)
--- NOTE | 2019-10-03 17:28 | PROVIDER PROGRESS NOTE ---
Progress Note Dr. Chirinos Progress Note/Pulmonary and or critical care Subjective: The patient is lying in bed. No family at bedside. Objective: Vital Signs: T 99.1 (no fever in last 24 hours), NH 82, RR 20, BP 122/56 and SaO2 94% on NC 6L/non-rebreather Physical Examination: General: Well-nourished, lying in bed, resting initially. Family at the bedside. HEENT: Atraumatic, normocephalic. Trachea midline. Mucosa pink and slightly dry. Pupils equal, round, reactive to light. Respiratory: No increased work of breathing. No accessory muscle use noted. Clear to auscultation with diminished breathing sounds bilaterally. No wheezing noted at this time. Cardiovascular: Regular rate and rhythm with S1, S2 appreciated. Gastrointestinal: Unable to assess as patient is agitated. Extremities: Bilateral lower extremity edema. No cyanosis. No clubbing. Dorsalis pedis 2+ bilaterally. Left upper extremity weakness and contracture noted. Neuro: Unable to assess. Dr. Chirinos did assessment and management. SOURAV Hawk did scribing only. LABS and Radiology: Laboratory Results 10/02/19 10/02/19 10/03/19 06:00 21:31 05:26 WBC RBC Hgb Hct MCV MCH MCHC RDW Std Deviation Plt Count MPV Immature Gran % (Auto) Neut % (Auto) Lymph % (Auto) [place] % (Auto) Eos % (Auto) Baso % (Auto) Immature Gran # (Auto) Neut # (Auto) Lymph # (Auto) [place] # (Auto) Eos # (Auto) Baso # (Auto) Segmented Neutrophils Lymphocytes Monocytes Eosinophils Sodium 130 L Potassium 3.7 Chloride 94 L Carbon Dioxide 19 L Anion Gap 17 BUN 46 H Creatinine 2.8 H Estimated GFR/1.73 m2 22 BUN/Creatinine Ratio 16 Glucose 160 H D POC Glucose 193 H Calculated Osmolality 276 Calcium 8.7 L Magnesium 2.5 Total Bilirubin 0.37 AST 75 H ALT 42 Alkaline Phosphatase 120 Total Protein 6.1 L Albumin 2.7 L Globulin 3.4 Albumin/Globulin Ratio 0.8 Crossmatch See Detail 10/03/19 10/03/19 10/03/19 05:26 06:29 11:34 WBC 14.91 H RBC 3.02 L Hgb 9.2 L Hct 28.0 L MCV 92.7 MCH 30.5 MCHC 32.9 L RDW Std Deviation 13.2 Plt Count 276 MPV 9.2 Immature Gran % (Auto) 0.2 Neut % (Auto) 86.3 H Lymph % (Auto) 6.1 L [place] % (Auto) 6.0 Eos % (Auto) 1.3 Baso % (Auto) 0.1 Immature Gran # (Auto) 0.03 Neut # (Auto) 12.87 H Lymph # (Auto) 0.91 L [place] # (Auto) 0.89 H Eos # (Auto) 0.19 Baso # (Auto) 0.02 Segmented Neutrophils 88 H Lymphocytes 7 L Monocytes 4 Eosinophils 1 Sodium Potassium Chloride Carbon Dioxide Anion Gap BUN Creatinine Estimated GFR/1.73 m2 BUN/Creatinine Ratio Glucose POC Glucose 167 H 222 H Calculated Osmolality Calcium Magnesium Total Bilirubin AST ALT Alkaline Phosphatase Total Protein Albumin Globulin Albumin/Globulin Ratio Crossmatch 10/03/19 16:42 WBC RBC Hgb Hct MCV MCH MCHC RDW Std Deviation Plt Count MPV Immature Gran % (Auto) Neut % (Auto) Lymph % (Auto) [place] % (Auto) Eos % (Auto) Baso % (Auto) Immature Gran # (Auto) Neut # (Auto) Lymph # (Auto) [place] # (Auto) Eos # (Auto) Baso # (Auto) Segmented Neutrophils Lymphocytes Monocytes Eosinophils Sodium Potassium Chloride Carbon Dioxide Anion Gap BUN Creatinine Estimated GFR/1.73 m2 BUN/Creatinine Ratio Glucose POC Glucose 198 H Calculated Osmolality Calcium Magnesium Total Bilirubin AST ALT Alkaline Phosphatase Total Protein Albumin Globulin Albumin/Globulin Ratio Crossmatch ASSESSMENT: 1. This is an 84-year-old male with a medical history of cerebrovascular accident with left-sided hemiparesis, dementia, diabetes mellitus type 2, hypertension, hyperlipidemia, chronic kidney disease. He has been admitted to [facility] since 09/29/2019 with acute rest hypoxemic respiratory failure. 2. Left lower lobe lung collapse with moderate-sized pleural effusion. 3. Possible pneumonia. The patient has leukocytosis. Antibiotic has been started since admission. 4. Constipation with left upper quadrant abdominal pain and nausea. 5. DNR 1.
[2019-10-03] MEDS: LIPITOR PO SCH (21:55)
[2019-10-03] MEDS: LANTUS INSULIN SUBQ SCH (21:55)
[2019-10-04] MEDS: MORPHINE IV PRN ×2 (00:22→15:22)
[2019-10-04] MEDS: ATROVENT NEB INH SCH ×3 (03:31→11:54)
[2019-10-04] MEDS: XOPENEX NEB INH SCH ×3 (03:31→11:54)
[2019-10-04 05:17] LABS: ALLEN TEST YES; BE -3.6 mmoll (-3.0-3.0); BLOOD TYPE ARTERIAL; HCO3-(ACT) 22.1 mmoll (20.0-26.0); METHB 1.6 % (0.0-1.5); O2(CT) 13.4 mL/dL (15.0-23.0); O2HB 96.3 % (95.0-99.0); PCO2(98.6) 38 mmHg (35-45); PO2(98.6) 122 mmHg (60-100); SAMPLE BLOOD; SAO2 99.1 % (95.0-100.0); THB 9.7 g/dL (11.5-17.4); pH(98.6) 7.36 (7.35-7.45)
[2019-10-04 05:19] LABS: MODALITY NRB
[2019-10-04] MEDS: HUMULIN R (PARKWAY) SUBQ SCH ×4 (06:47→21:29)
[2019-10-04 06:51] LABS: BASO# 0.01 X1000 (0.0-0.2); BASO% 0.1 % (0.0-0.8); EOS# 0.03 X1000 (0.0-0.7); EOS% 0.2 % (0.0-10.0); HEMATOCRIT 26.1 % (42.0-52.0); HEMOGLOBIN 8.5 g/dL (14.0-18.0); IMM GRAN# 0.02 X1000 (0.0-0.04); IMM GRAN% 0.2 % (0.0-0.5); LYMPH% 5.8 % (20.5-51.1); MCHC 32.6 g/dL (33-37); MCV 92.2 FL (81-99); MONO# 0.78 X1000 (0.11-0.59); MONO% 6.4 % (1.7-9.3); MPV 8.9 FL (7.4-10.4); NEUT# 10.56 X1000 (1.4-6.5); NEUT% 87.3 % (42.2-75.2); PLT 257 X1000 (130-400); RBC 2.83 XMIL (4.7-6.1); RDW 12.7 % (11.5-14.5)
[2019-10-04 07:10] LABS: ALB/GLOB RATIO 0.7; ALBUMIN 2.5 g/dL (3.5-5.0); CALCIUM 8.5 mg/dL (8.8-10.2); CREATININE 2.8 mg/dL (0.7-1.2); MAGNESIUM 2.8 mg/dL (1.5-2.7); TOTAL BILIRUBIN 0.27 mg/dL (0.20-1.00); TOTAL PROTEIN 6.3 g/dL (6.3-8.3)
[2019-10-04] MEDS: DITROPAN PO SCH ×2 (08:44→21:30)
[2019-10-04] MEDS: FLOMAX PO SCH (08:44)
[2019-10-04] MEDS: M.V.I.-12 10 ML, FOLIC ACID 1 MG, MAGNESIUM SULFATE 1 GM, THIAMINE 100 MG in NS 1,000 ML IV SCH (08:44)
[2019-10-04] MEDS: ROCEPHIN 1 GM in NS 50 ML IV SCH (08:44)
--- NOTE | 2019-10-04 09:16 | PROGRESS NOTE ---
DATE: 10/04/2019 SUBJECTIVE: Mr. Ray is about the same general condition. He continues to have mental confusion. He has poor air entry on the left side. Oral intake is poor. General condition is unchanged. We are getting him banana bag once daily and he is getting the IV fluid. He is seen by Dr. Chirinos. He continues to have leukocytosis. Repeating the chest x-ray today for follow-up on his pleural effusion and pneumonia. cc: Brendan Guadalupe MD
[2019-10-04] MEDS: ZYVOX 600 MG/D5W 600 MG/300 ML IVPB IV SCH ×2 (10:14→21:29)
[2019-10-04] MEDS: MIRALAX PO SCH ×2 (10:15→21:30)
[2019-10-04] MEDS: NORVASC PO SCH (10:15)
[2019-10-04] MEDS: TENORMIN PO SCH (10:15)
[2019-10-04] MEDS: THERA M PLUS PO SCH (10:15)
[2019-10-04] MEDS: PERICOLACE PO SCH ×2 (10:15→21:30)
[2019-10-04] MEDS: ZYRTEC PO SCH (10:16)
[2019-10-04] MEDS: SOLU-MEDROL IV SCH ×2 (15:21→21:30)
[2019-10-04] MEDS: XOPENEX HFA INH PRN ×3 (15:45→23:33)
--- NOTE | 2019-10-04 17:46 | PROVIDER PROGRESS NOTE ---
Progress Note Dr. Chirinos Progress Note/Pulmonary and or critical care Subjective: The patient is lying in bed on NRB 100%. He has moderate audible expiratory wheezing with increased work of breathing at this time. He apparently had a breathing treatment less than 1 hour ago. No family at the bedside. Input was appreciated from Dr. Guadalupe and other teams on the case. Objective: Vital Signs: T 97.4 (no fever in last 24 hours), CA 87, RR 18, BP 136/75 and SaO2 96% on NRB 100%. Physical Examination: General: Lying in bed with moderate audible wheezing. SOB with increased work of breathing noted. No family at the bedside. HEENT: Normocephalic. Atraumatic. Mucosa pink and moist. PERRL. Chest: Moderate audible expiratory wheezing noted. Mild SOB with increased work o breathing, but no accessory muscle use noted. Decreased air entry bilaterally. Diminished breathing sounds bilaterally with left worse than right. Moderate expiratory wheezing bilaterally with prolonged expiratory phases. CVS: S1 and S2 appreciated. Abdomen: Soft. Mildly distended. Nontender. Normoactive bowel sounds in all 4 quadrants. Extremities: BLE trace edema. No cyanosis. No clubbing. LUE weakness and contracture noted. Neuro: Awake and alert with confusion noted at times. Able to answer simple questions and follow simple commands. Labs and Radiology: Laboratory Results 10/03/19 10/04/19 10/04/19 21:16 00:23 05:07 WBC RBC Hgb Hct MCV MCH MCHC RDW Std Deviation Plt Count MPV Immature Gran % (Auto) Neut % (Auto) Lymph % (Auto) Izard % (Auto) Eos % (Auto) Baso % (Auto) Immature Gran # (Auto) Neut # (Auto) Lymph # (Auto) Izard # (Auto) Eos # (Auto) Baso # (Auto) Specimen Type ARTERIAL Sample Site R RADIAL pH 7.36 pCO2 38 pO2 122 H HCO3 22.1 Base Excess -3.6 L Oxyhemoglobin 96.3 ABG O2 Sat (Calculated) 13.4 L ABG O2 Saturation 99.1 ABG Carboxyhemoglobin 1.30 ABG Methemoglobin 1.6 H Srikanth Test YES A-a O2 Difference 544.0 Total Hemoglobin 9.7 L Lactate 1.50 Liter Flow 15.0 Blood Gas Modality NRB FiO2 % 100.0 Sodium Potassium Chloride Carbon Dioxide Anion Gap BUN Creatinine Estimated GFR/1.73 m2 BUN/Creatinine Ratio Glucose POC Glucose 325 H D 304 H Calculated Osmolality Calcium Magnesium Total Bilirubin AST ALT Alkaline Phosphatase Total Protein Albumin Globulin Albumin/Globulin Ratio 10/04/19 10/04/19 10/04/19 06:15 06:15 06:33 WBC 12.10 H RBC 2.83 L Hgb 8.5 L Hct 26.1 L MCV 92.2 MCH 30.0 MCHC 32.6 L RDW Std Deviation 12.7 Plt Count 257 MPV 8.9 Immature Gran % (Auto) 0.2 Neut % (Auto) 87.3 H Lymph % (Auto) 5.8 L Izard % (Auto) 6.4 Eos % (Auto) 0.2 Baso % (Auto) 0.1 Immature Gran # (Auto) 0.02 Neut # (Auto) 10.56 H Lymph # (Auto) 0.70 L Izard # (Auto) 0.78 H Eos # (Auto) 0.03 Baso # (Auto) 0.01 Specimen Type Sample Site pH pCO2 pO2 HCO3 Base Excess Oxyhemoglobin ABG O2 Sat (Calculated) ABG O2 Saturation ABG Carboxyhemoglobin ABG Methemoglobin Srikanth Test A-a O2 Difference Total Hemoglobin Lactate Liter Flow Blood Gas Modality FiO2 % Sodium 136 Potassium 4.0 Chloride 99 Carbon Dioxide 23 L Anion Gap 14 BUN 46 H Creatinine 2.8 H Estimated GFR/1.73 m2 22 BUN/Creatinine Ratio 16 Glucose 214 H POC Glucose 196 H Calculated Osmolality 290 Calcium 8.5 L Magnesium 2.8 H Total Bilirubin 0.27 AST 54 H ALT 41 Alkaline Phosphatase 125 H Total Protein 6.3 Albumin 2.5 L Globulin 3.8 Albumin/Globulin Ratio 0.7 10/04/19 10/04/19 10:36 15:27 WBC RBC Hgb Hct MCV MCH MCHC RDW Std Deviation Plt Count MPV Immature Gran % (Auto) Neut % (Auto) Lymph % (Auto) Izard % (Auto) Eos % (Auto) Baso % (Auto) Immature Gran # (Auto) Neut # (Auto) Lymph # (Auto) Izard # (Auto) Eos # (Auto) Baso # (Auto) Specimen Type Sample Site pH pCO2 pO2 HCO3 Base Excess Oxyhemoglobin ABG O2 Sat (Calculated) ABG O2 Saturation ABG Carboxyhemoglobin ABG Methemoglobin Srikanth Test A-a O2 Difference Total Hemoglobin Lactate Liter Flow Blood Gas Modality FiO2 % Sodium Potassium Chloride Carbon Dioxide Anion Gap BUN Creatinine Estimated GFR/1.73 m2 BUN/Creatinine Ratio Glucose POC Glucose 155 H 144 H Calculated Osmolality Calcium Magnesium Total Bilirubin AST ALT Alkaline Phosphatase Total Protein Albumin Globulin Albumin/Globulin Ratio Assessment: Acute hypoxemic respiratory failure. LLL lung collapse with moderate-sized pleural effusion. Possible pneumonia. Acute on chronic kidney disease. DNR1. Plan: Supplemental oxygen as needed. We titrated oxygen to patients needs per clinical protocols. We will monitor patients response closely. Continue antibiotics including Ceftriaxone and Linezolid. Continue bronchodilators. We are adding IV Solu-Medrol 40mg q6h. We will start weaning when clinically indicated. We are planning thoracentesis this Friday at this time. We have been holding Plavix since 09/30/19. Evaluation time in minutes: [address] Chirinos did the examination, evaluation, management and orders. SOURAV did the dictation/scribing for Dr. Chirinos according to his direction.
[2019-10-04] MEDS: LIPITOR PO SCH (21:30)
[2019-10-04] MEDS: LANTUS INSULIN SUBQ SCH (21:30)
[2019-10-05] MEDS: SOLU-MEDROL IV SCH ×4 (03:52→21:31)
[2019-10-05] MEDS: MORPHINE IV PRN (04:00)
[2019-10-05 04:48] LABS: ALLEN TEST YES; BE -5.5 mmoll (-3.0-3.0); BLOOD TYPE ARTERIAL; HCO3-(ACT) 20.7 mmoll (20.0-26.0); METHB 0.7 % (0.0-1.5); O2(CT) 13.1 mL/dL (15.0-23.0); O2HB 97.7 % (95.0-99.0); PCO2(98.6) 32 mmHg (35-45); PO2(98.6) 155 mmHg (60-100); SAMPLE BLOOD; SAO2 99.7 % (95.0-100.0); THB 9.3 g/dL (11.5-17.4); pH(98.6) 7.38 (7.35-7.45)
[2019-10-05 04:49] LABS: MODALITY NRB
[2019-10-05] MEDS: HUMULIN R (PARKWAY) SUBQ SCH ×4 (06:50→21:31)
[2019-10-05] MEDS: XOPENEX HFA INH PRN ×5 (07:53→23:41)
[2019-10-05] MEDS: ROCEPHIN 1 GM in NS 50 ML IV SCH (08:33)
[2019-10-05] MEDS: ZYVOX 600 MG/D5W 600 MG/300 ML IVPB IV SCH ×3 (08:39→21:31)
[2019-10-05] MEDS: FLOMAX PO SCH (08:44)
[2019-10-05] MEDS: ZYRTEC PO SCH (08:44)
[2019-10-05] MEDS: PERICOLACE PO SCH ×2 (08:44→21:32)
[2019-10-05] MEDS: NORVASC PO SCH (08:44)
[2019-10-05] MEDS: MIRALAX PO SCH ×2 (08:44→21:31)
[2019-10-05] MEDS: DITROPAN PO SCH ×2 (08:44→21:31)
[2019-10-05] MEDS: TENORMIN PO SCH (08:44)
[2019-10-05] MEDS: THERA M PLUS PO SCH (08:44)
--- NOTE | 2019-10-05 09:20 | PROGRESS NOTE ---
DATE: 10/05/2019 SUBJECTIVE: Mr. Ray remains afebrile. His blood pressure is 164/68. He is still very short of breath. He has pleural fluid on the left side with possible underlying pneumonia. He is being followed by Dr. Chirinos. Since he has been in the retirement for so long and had several visitors, several people working with him with severe respiratory illness, we have tested him for the coronavirus. The serology test for influenza is negative. Overall condition is otherwise unchanged. We have done a portable chest x-ray this morning on him. General condition remains the same. cc: Brendan Guadalupe MD
--- NOTE | 2019-10-05 10:22 | Diag Imaging Result Doc PS360 ---
EXAM: CHEST-PORTABLE INDICATION: LLL Pneumonia TECHNIQUE: One view COMPARISON: 09/30/2019 FINDINGS: The left effusion continues to enlarge and now completely opacifies the left hemithorax. The right lung remains clear. No new consolidations are appreciated. The visualized portion of the cardiac silhouette is unchanged. IMPRESSION: Large left pleural effusion incompletely opacifies the left hemithorax. Electronically signed by Lencho Perry 10/05/2019 10:20 AM
[2019-10-05 10:51] LABS: BASO# 0.01 X1000 (0.0-0.2); BASO% 0.1 % (0.0-0.8); EOS# 0.03 X1000 (0.0-0.7); EOS% 0.2 % (0.0-10.0); HEMATOCRIT 30.8 % (42.0-52.0); HEMOGLOBIN 9.9 g/dL (14.0-18.0); IMM GRAN# 0.05 X1000 (0.0-0.04); IMM GRAN% 0.4 % (0.0-0.5); LYMPH# 0.45 X1000 (1.2-3.4); LYMPH% 3.2 % (20.5-51.1); MCH 30.1 PG (27-31); MCHC 32.1 g/dL (33-37); MCV 93.6 FL (81-99); MONO# 0.21 X1000 (0.11-0.59); MONO% 1.5 % (1.7-9.3); MPV 9.2 FL (7.4-10.4); NEUT# 13.13 X1000 (1.4-6.5); NEUT% 94.6 % (42.2-75.2); PLT 301 X1000 (130-400); RBC 3.29 XMIL (4.7-6.1); RDW 12.6 % (11.5-14.5); WBC 13.88 X1000 (4.8-10.8)
[2019-10-05 10:57] LABS: ALB/GLOB RATIO 0.6; ALBUMIN 2.6 g/dL (3.5-5.0); CALCIUM 8.7 mg/dL (8.8-10.2); CREATININE 2.5 mg/dL (0.7-1.2); MAGNESIUM 2.8 mg/dL (1.5-2.7); POTASSIUM 4.1 mmol/L (3.5-5.1); TOTAL BILIRUBIN 0.31 mg/dL (0.20-1.00); TOTAL PROTEIN 6.6 g/dL (6.3-8.3)
[2019-10-05] MEDS: M.V.I.-12 10 ML, FOLIC ACID 1 MG, MAGNESIUM SULFATE 1 GM, THIAMINE 100 MG in NS 1,000 ML IV SCH (11:00)
[2019-10-05 11:15] LABS: LYMPHS 2 % (21-51); MONO 1 % (1-9); SEGS 97 % (42-75)
--- NOTE | 2019-10-05 16:53 | PROVIDER PROGRESS NOTE ---
Progress Note Dr. Chirinos Progress Note/Pulmonary and or critical care Subjective: The patient is lying in bed on VM 50%. He still has some mild audible expiratory wheezing with increased work of breathing as he speaks. He appears more confused today. He is asking for food at this time. No family at the bedside. Input was appreciated from Dr. Guadalupe and other teams on the case. Objective: Vital Signs: T 98 (no fever in last 24 hours), [place] 65, RR 15, BP 164/68 and SaO2 98% on NRB 100%. Physical Examination: General: Lying in bed with mild audible wheezing and mild increased work of breathing as patient speaks. No family at the bedside. HEENT: Normocephalic. Atraumatic. Mucosa pink and moist. PERRL. Chest: Mild audible expiratory wheezing noted. Mild increased work o breathing, but no accessory muscle use noted. Diminished breathing sounds bilaterally with left worse than right. Coarse breathing sounds bilaterally. CVS: S1 and S2 appreciated. Abdomen: Soft. Mildly distended. Nontender. Normoactive bowel sounds in all 4 quadrants. Extremities: No edema. No cyanosis. No clubbing. LUE weakness and contracture noted. Neuro: Awake and alert with confusion noted at times. Able to answer simple questions and follow simple commands. Labs and Radiology: Laboratory Results 10/05/19 10/05/19 10/05/19 04:38 06:30 10:10 WBC RBC Hgb Hct MCV MCH MCHC RDW Std Deviation Plt Count MPV Immature Gran % (Auto) Neut % (Auto) Lymph % (Auto) Garza % (Auto) Eos % (Auto) Baso % (Auto) Immature Gran # (Auto) Neut # (Auto) Lymph # (Auto) Garza # (Auto) Eos # (Auto) Baso # (Auto) Segmented Neutrophils Lymphocytes Monocytes Specimen Type ARTERIAL Sample Site R RADIAL pH 7.38 pCO2 32 L pO2 155 H HCO3 20.7 Base Excess -5.5 L Oxyhemoglobin 97.7 ABG O2 Sat (Calculated) 13.1 L ABG O2 Saturation 99.7 ABG Carboxyhemoglobin 1.30 ABG Methemoglobin 0.7 Srikanth Test YES A-a O2 Difference 518.0 Total Hemoglobin 9.3 L Lactate 1.40 Liter Flow 15.0 Blood Gas Modality NRB FiO2 % 100.0 Sodium 130 L Potassium 4.1 Chloride 97 L Carbon Dioxide 19 L Anion Gap 14 BUN 49 H Creatinine 2.5 H Estimated GFR/1.73 m2 25 BUN/Creatinine Ratio 20 Glucose 220 H POC Glucose 205 H Calculated Osmolality 281 Calcium 8.7 L Magnesium 2.8 H Total Bilirubin 0.31 AST 51 H ALT 46 H Alkaline Phosphatase 127 H Total Protein 6.6 Albumin 2.6 L Globulin 4.0 Albumin/Globulin Ratio 0.6 10/05/19 10/05/19 10:10 11:31 WBC 13.88 H RBC 3.29 L Hgb 9.9 L D Hct 30.8 L MCV 93.6 MCH 30.1 MCHC 32.1 L RDW Std Deviation 12.6 Plt Count 301 MPV 9.2 Immature Gran % (Auto) 0.4 Neut % (Auto) 94.6 H Lymph % (Auto) 3.2 L Garza % (Auto) 1.5 L Eos % (Auto) 0.2 Baso % (Auto) 0.1 Immature Gran # (Auto) 0.05 H Neut # (Auto) 13.13 H Lymph # (Auto) 0.45 L Garza # (Auto) 0.21 Eos # (Auto) 0.03 Baso # (Auto) 0.01 Segmented Neutrophils 97 H Lymphocytes 2 L Monocytes 1 Specimen Type Sample Site pH pCO2 pO2 HCO3 Base Excess Oxyhemoglobin ABG O2 Sat (Calculated) ABG O2 Saturation ABG Carboxyhemoglobin ABG Methemoglobin Srikanth Test A-a O2 Difference Total Hemoglobin Lactate Liter Flow Blood Gas Modality FiO2 % Sodium Potassium Chloride Carbon Dioxide Anion Gap BUN Creatinine Estimated GFR/1.73 m2 BUN/Creatinine Ratio Glucose POC Glucose 249 H Calculated Osmolality Calcium Magnesium Total Bilirubin AST ALT Alkaline Phosphatase Total Protein Albumin Globulin Albumin/Globulin Ratio Assessment: Acute hypoxemic respiratory failure. LLL lung collapse with moderate-sized pleural effusion. CXR today shows enlarged left pleural effusion with completely opacified left hemithorax. Possible pneumonia. Acute on chronic kidney disease. DNR1. Plan: Supplemental oxygen as needed. We titrated oxygen to patients needs per clinical protocols. We will monitor patients response closely. Continue antibiotics including Ceftriaxone and Linezolid. Continue bronchodilators. We are adding IV Solu-Medrol 40 mg q6h. No weaning of steroid at this time. We are planning thoracentesis tomorrow. We have been holding Plavix since 3/12/20. We will follow up COVID-19 results. Evaluation time in minutes: 33 minutes
[2019-10-05] MEDS: LANTUS INSULIN SUBQ SCH (21:31)
[2019-10-05] MEDS: LIPITOR PO SCH (21:31)
[2019-10-06] MEDS: XOPENEX HFA INH PRN ×4 (03:56→16:35)
[2019-10-06] MEDS: SOLU-MEDROL IV SCH ×4 (04:48→22:58)
[2019-10-06 05:16] LABS: ALLEN TEST YES; BLOOD TYPE ARTERIAL; HCO3-(ACT) 21.8 mmoll (20.0-26.0); METHB 0.2 % (0.0-1.5); O2(CT) 11.9 mL/dL (15.0-23.0); O2HB 97.5 % (95.0-99.0); PCO2(98.6) 26 mmHg (35-45); PO2(98.6) 119 mmHg (60-100); SAMPLE BLOOD; SAO2 99.3 % (95.0-100.0); THB 8.5 g/dL (11.5-17.4); pH(98.6) 7.47 (7.35-7.45)
[2019-10-06 05:17] LABS: MODALITY CANNULA
[2019-10-06 05:27] LABS: HEMATOCRIT 28.7 % (42.0-52.0); HEMOGLOBIN 9.6 g/dL (14.0-18.0); IMM GRAN# 0.04 X1000 (0.0-0.04); IMM GRAN% 0.2 % (0.0-0.5); LYMPH# 0.49 X1000 (1.2-3.4); LYMPH% 2.9 % (20.5-51.1); MCH 30.2 PG (27-31); MCHC 33.4 g/dL (33-37); MCV 90.3 FL (81-99); MONO# 0.43 X1000 (0.11-0.59); MONO% 2.6 % (1.7-9.3); NEUT# 15.71 X1000 (1.4-6.5); NEUT% 94.3 % (42.2-75.2); PLT 316 X1000 (130-400); RBC 3.18 XMIL (4.7-6.1); RDW 12.5 % (11.5-14.5); WBC 16.67 X1000 (4.8-10.8)
[2019-10-06 06:05] LABS: ALB/GLOB RATIO 0.6; ALBUMIN 2.3 g/dL (3.5-5.0); CALCIUM 8.8 mg/dL (8.8-10.2); CREATININE 2.6 mg/dL (0.7-1.2); MAGNESIUM 3.1 mg/dL (1.5-2.7); POTASSIUM 3.5 mmol/L (3.5-5.1); TOTAL BILIRUBIN 0.26 mg/dL (0.20-1.00); TOTAL PROTEIN 6.4 g/dL (6.3-8.3)
[2019-10-06] MEDS: HUMULIN R (PARKWAY) SUBQ SCH ×2 (06:15→13:23)
[2019-10-06 07:15] LABS: BANDS 2 % (0-1); LYMPHS 4 % (21-51); MONO 2 % (1-9); SEGS 92 % (42-75)
--- NOTE | 2019-10-06 09:37 | PROGRESS NOTE ---
DATE: 10/06/2019 SUBJECTIVE: Mr. Ray is in about the same general condition. OBJECTIVE: Vital signs are stable. His lungs reveal poor air entry on the left side. He is confused and somewhat agitated. His repeat chest x-ray showed almost complete opacification of the left hemithorax. PLAN: He is supposed to have a COVID-19 test done on Friday morning. The results will be back by the later part of the weekend or maybe next week. He is also followed by Dr. Chirinos. He is currently on linezolid and ceftriaxone. Overall prognosis seems to be poor. We will try Glucerna on him as well as start him on Clinimix as his oral intake is poor. cc: Brendan Guadalupe MD
[2019-10-06] MEDS: ROCEPHIN 1 GM in NS 50 ML IV SCH (09:44)
[2019-10-06] MEDS: ZYVOX 600 MG/D5W 600 MG/300 ML IVPB IV SCH ×2 (09:44→22:59)
[2019-10-06] MEDS: M.V.I.-12 10 ML, FOLIC ACID 1 MG, MAGNESIUM SULFATE 1 GM, THIAMINE 100 MG in NS 1,000 ML IV SCH (10:06)
[2019-10-06] MEDS: MIRALAX PO SCH ×2 (10:08→22:58)
[2019-10-06] MEDS: ZYRTEC PO SCH (10:09)
[2019-10-06] MEDS: THERA M PLUS PO SCH (10:09)
[2019-10-06] MEDS: PERICOLACE PO SCH ×2 (10:10→22:58)
[2019-10-06] MEDS: FLOMAX PO SCH (10:10)
[2019-10-06] MEDS: TENORMIN PO SCH (10:10)
[2019-10-06] MEDS: NORVASC PO SCH (10:10)
[2019-10-06] MEDS: DITROPAN PO SCH ×2 (10:11→22:58)
[2019-10-06] MEDS: CLINIMIX E 4.25%-5% SOLUTION 1,000 ML IV SCH (13:23)
[2019-10-06] MEDS ORDERED: MORPHINE IV PRN (15:27)
[2019-10-06] MEDS ORDERED: TYLENOL PO PRN (15:29)
[2019-10-06] MEDS ORDERED: ZOFRAN IV PRN (15:30)
[2019-10-06] MEDS: HUMULIN R SUBQ SCH ×2 (17:44→22:59)
--- NOTE | 2019-10-06 18:56 | PROVIDER PROGRESS NOTE ---
Progress Note Dr. Chirinos Progress Note/Pulmonary and or critical care Subjective: The patient is lying in bed on room air with SaO2 91%. He apparently pulled NC off. He has mild respiratory distress with increased work of breathing noted at this time. No family at the bedside. Input was appreciated from Dr. Guadalupe and other teams on the case. Objective: Vital Signs: T 98.1 (no fever in last 24 hours), [place] 68, RR 20, BP 139/73 and SaO2 94% on NC 6L. Physical Examination: General: Lying in bed with mild respiratory distress noted. No family at the bedside. HEENT: Normocephalic. Atraumatic. Mucosa pink and moist. PERRL. Chest: Labored. Increased work o breathing, but no accessory muscle use noted. Diminished breathing sounds bilaterally with left worse than right with a few inspiratory crackles and a few expiratory wheezing bilaterally. CVS: S1 and S2 appreciated. Abdomen: Soft. Mildly distended. Nontender. Normoactive bowel sounds in all 4 quadrants. Extremities: No edema. No cyanosis. No clubbing. LUE weakness and contracture noted. Neuro: Awake and alert with confusion. Labs and Radiology: Laboratory Results 10/05/19 10/06/19 10/06/19 21:29 04:30 04:30 WBC 16.67 H RBC 3.18 L Hgb 9.6 L Hct 28.7 L MCV 90.3 MCH 30.2 MCHC 33.4 RDW Std Deviation 12.5 Plt Count 316 MPV 9.0 Immature Gran % (Auto) 0.2 Neut % (Auto) 94.3 H Lymph % (Auto) 2.9 L Woodruff % (Auto) 2.6 Eos % (Auto) 0.0 Baso % (Auto) 0.0 Immature Gran # (Auto) 0.04 Neut # (Auto) 15.71 H Lymph # (Auto) 0.49 L Woodruff # (Auto) 0.43 Eos # (Auto) 0.00 Baso # (Auto) 0.00 Segmented Neutrophils 92 H Band Neutrophils 2 H Lymphocytes 4 L Monocytes 2 Specimen Type Sample Site pH pCO2 pO2 HCO3 Base Excess Oxyhemoglobin ABG O2 Sat (Calculated) ABG O2 Saturation ABG Carboxyhemoglobin ABG Methemoglobin Srikanth Test A-a O2 Difference Total Hemoglobin Lactate Liter Flow Blood Gas Modality FiO2 % Sodium 132 L Potassium 3.5 Chloride 99 Carbon Dioxide 16 L Anion Gap 17 BUN 54 H Creatinine 2.6 H Estimated GFR/1.73 m2 24 BUN/Creatinine Ratio 21 Glucose 162 H POC Glucose 226 H Calculated Osmolality 283 Calcium 8.8 Magnesium 3.1 H Total Bilirubin 0.26 AST 42 H ALT 41 Alkaline Phosphatase 120 Total Protein 6.4 Albumin 2.3 L Globulin 4.1 Albumin/Globulin Ratio 0.6 10/06/19 10/06/19 10/06/19 05:05 06:13 13:17 WBC RBC Hgb Hct MCV MCH MCHC RDW Std Deviation Plt Count MPV Immature Gran % (Auto) Neut % (Auto) Lymph % (Auto) Woodruff % (Auto) Eos % (Auto) Baso % (Auto) Immature Gran # (Auto) Neut # (Auto) Lymph # (Auto) Woodruff # (Auto) Eos # (Auto) Baso # (Auto) Segmented Neutrophils Band Neutrophils Lymphocytes Monocytes Specimen Type ARTERIAL Sample Site R RADIAL pH 7.47 H pCO2 26 L pO2 119 H HCO3 21.8 Base Excess -4.0 L Oxyhemoglobin 97.5 ABG O2 Sat (Calculated) 11.9 L ABG O2 Saturation 99.3 ABG Carboxyhemoglobin 1.60 ABG Methemoglobin 0.2 Srikanth Test YES A-a O2 Difference 162.0 Total Hemoglobin 8.5 L Lactate 1.60 Liter Flow 6.0 Blood Gas Modality CANNULA FiO2 % 44.0 Sodium Potassium Chloride Carbon Dioxide Anion Gap BUN Creatinine Estimated GFR/1.73 m2 BUN/Creatinine Ratio Glucose POC Glucose 149 H 269 H D Calculated Osmolality Calcium Magnesium Total Bilirubin AST ALT Alkaline Phosphatase Total Protein Albumin Globulin Albumin/Globulin Ratio 10/06/19 17:43 WBC RBC Hgb Hct MCV MCH MCHC RDW Std Deviation Plt Count MPV Immature Gran % (Auto) Neut % (Auto) Lymph % (Auto) Woodruff % (Auto) Eos % (Auto) Baso % (Auto) Immature Gran # (Auto) Neut # (Auto) Lymph # (Auto) Woodruff # (Auto) Eos # (Auto) Baso # (Auto) Segmented Neutrophils Band Neutrophils Lymphocytes Monocytes Specimen Type Sample Site pH pCO2 pO2 HCO3 Base Excess Oxyhemoglobin ABG O2 Sat (Calculated) ABG O2 Saturation ABG Carboxyhemoglobin ABG Methemoglobin Srikanth Test A-a O2 Difference Total Hemoglobin Lactate Liter Flow Blood Gas Modality FiO2 % Sodium Potassium Chloride Carbon Dioxide Anion Gap BUN Creatinine Estimated GFR/1.73 m2 BUN/Creatinine Ratio Glucose POC Glucose 254 H Calculated Osmolality Calcium Magnesium Total Bilirubin AST ALT Alkaline Phosphatase Total Protein Albumin Globulin Albumin/Globulin Ratio Assessment: Acute hypoxemic respiratory failure. LLL lung collapse with moderate-sized pleural effusion. Thoracentesis planning today. Possible pneumonia. Acute on chronic kidney disease. DNR1. Leukocytosis. Worsening today with no fever for 4 days. Likely secondary to Solu-Medrol. Mild alkalemia with AG metabolic acidosis and respiratory alkalosis. Plan: Supplemental oxygen as needed. We titrated oxygen to patients needs per cl inical protocols. We will monitor patients response closely. Continue antibiotics including Ceftriaxone and Linezolid. Continue bronchodilators. We are adding IV Solu-Medrol 40 mg q6h. No weaning of steroid at this time. We are planning thoracentesis today. We have been holding Plavix since 09/30/19. We will follow up COVID-19 results. Evaluation time in minutes: 31 minutes
[2019-10-06] MEDS: LIPITOR PO SCH (22:59)
[2019-10-06] MEDS: LANTUS INSULIN SUBQ SCH (23:00)
[2019-10-07] MEDS: SOLU-MEDROL IV SCH ×4 (03:10→21:14)
[2019-10-07 05:10] LABS: ALLEN TEST YES; BE -6.1 mmoll (-3.0-3.0); BLOOD TYPE ARTERIAL; HCO3-(ACT) 20.2 mmoll (20.0-26.0); O2(CT) 11.4 mL/dL (15.0-23.0); O2HB 97.2 % (95.0-99.0); PCO2(98.6) 28 mmHg (35-45); PO2(98.6) 115 mmHg (60-100); SAMPLE BLOOD; SAO2 99.3 % (95.0-100.0); THB 8.2 g/dL (11.5-17.4); pH(98.6) 7.41 (7.35-7.45)
[2019-10-07 05:13] LABS: MODALITY CANNULA
[2019-10-07] MEDS: HUMULIN R SUBQ SCH ×4 (06:10→21:15)
[2019-10-07] MEDS: ZYVOX 600 MG/D5W 600 MG/300 ML IVPB IV SCH ×2 (09:05→21:13)
[2019-10-07] MEDS: ROCEPHIN 1 GM in NS 50 ML IV SCH (09:05)
[2019-10-07] MEDS: PERICOLACE PO SCH ×2 (09:05→21:14)
[2019-10-07] MEDS: MIRALAX PO SCH ×2 (09:05→21:14)
[2019-10-07] MEDS: ZYRTEC PO SCH (09:06)
[2019-10-07] MEDS: DITROPAN PO SCH ×2 (09:06→21:14)
[2019-10-07] MEDS: FLOMAX PO SCH (09:06)
[2019-10-07] MEDS: CLINIMIX E 4.25%-5% SOLUTION 1,000 ML IV SCH (09:06)
[2019-10-07] MEDS: NORVASC PO SCH (09:06)
[2019-10-07] MEDS: TENORMIN PO SCH (09:06)
--- NOTE | 2019-10-07 09:25 | PROGRESS NOTE ---
DATE: 10/07/2019 Mr. Ray is doing about the same. Continues to struggle for breathing. He has left-sided pleural effusion. Almost entire left side is opaque on the chest x-ray. We are waiting for the COVID-19 results. I am going to stop the banana bag as he has started Clinimix yesterday. Overall condition is unchanged. The vital signs are stable. cc: Brendan Guadalupe MD
[2019-10-07] MEDS: XOPENEX HFA INH PRN ×2 (12:18→16:33)
--- NOTE | 2019-10-07 17:36 | PROVIDER PROGRESS NOTE ---
Progress Note Dr. Chirinos Progress Note/Pulmonary and or critical care Subjective: The patient is lying in bed on NC 6L. He appears more alert today. He is asking for drink at this time. He states he is feeling same. No family at the bedside. Input was appreciated from Dr. Guadalupe and other teams on the case. Objective: Vital Signs: T 97.7(no fever in last 24 hours), [place] 63, RR 20, BP 124/79 and SaO2 95% on NC 6L. Physical Examination: General: Lying in bed with mild respiratory distress noted. No family at the bedside. HEENT: Normocephalic. Atraumatic. Mucosa pink and moist. PERRL. Chest: Mildly labored. Mildly increased work o breathing, but no accessory muscle use noted. Coarse breathing sounds at bilateral upper lung zones with inspiratory crackles and expiratory wheezing bilaterally. CVS: S1 and S2 appreciated. Abdomen: Soft. Mildly distended. Nontender. Normoactive bowel sounds in all 4 quadrants. Extremities: BLE and RUE edema trace to 1+. No cyanosis. No clubbing. LUE weakness and contracture noted. Neuro: Awake and alert with confusion. Labs and Radiology: Laboratory Results 10/06/19 10/06/19 10/07/19 17:43 22:44 05:00 Specimen Type ARTERIAL Sample Site R RADIAL pH 7.41 pCO2 28 L pO2 115 H HCO3 20.2 Base Excess -6.1 L Oxyhemoglobin 97.2 ABG O2 Sat (Calculated) 11.4 L ABG O2 Saturation 99.3 ABG Carboxyhemoglobin 1.20 ABG Methemoglobin 1.0 Srikanth Test YES A-a O2 Difference 135.0 Total Hemoglobin 8.2 L Lactate 1.40 Liter Flow 5.0 Blood Gas Modality CANNULA FiO2 % 40.0 POC Glucose 254 H 234 H 10/07/19 10/07/19 11:39 16:11 Specimen Type Sample Site pH pCO2 pO2 HCO3 Base Excess Oxyhemoglobin ABG O2 Sat (Calculated) ABG O2 Saturation ABG Carboxyhemoglobin ABG Methemoglobin Srikanth Test A-a O2 Difference Total Hemoglobin Lactate Liter Flow Blood Gas Modality FiO2 % POC Glucose 210 H 195 H Assessment: Acute hypoxemic respiratory failure. LLL lung collapse with moderate-sized pleural effusion. Thoracentesis pending for COVID-19 results. Possible pneumonia. Acute on chronic kidney disease. DNR1. Leukocytosis. Worsening today with no fever for 4 days. Likely secondary to Solu-Medrol. Plan: Supplemental oxygen as needed. We titrated oxygen to patients needs per clinical protocols. We will monitor patients response closely. Continue antibiotics including Ceftriaxone and Linezolid. Continue bronchodilators. We are adding IV Solu-Medrol 40 mg q6h. No weaning of steroid at this time. We are planning thoracentesis today. We have been holding Plavix since 09/30/19. We will follow up COVID-19 results. Continue droplet isolation. Evaluation time in minutes: 32 minutes
[2019-10-07] MEDS: LIPITOR PO SCH (21:14)
[2019-10-07] MEDS: LANTUS INSULIN SUBQ SCH (21:15)
[2019-10-08] MEDS: SOLU-MEDROL IV SCH ×4 (02:44→22:24)
[2019-10-08] MEDS: HUMULIN R SUBQ SCH ×4 (06:17→22:25)
[2019-10-08] MEDS: ZYRTEC PO SCH (08:50)
[2019-10-08] MEDS: DITROPAN PO SCH ×2 (08:50→22:23)
[2019-10-08] MEDS: FLOMAX PO SCH (08:51)
[2019-10-08] MEDS: TENORMIN PO SCH (08:51)
[2019-10-08] MEDS: ZYVOX 600 MG/D5W 600 MG/300 ML IVPB IV SCH ×3 (08:51→22:38)
[2019-10-08] MEDS: ROCEPHIN 1 GM in NS 50 ML IV SCH (08:51)
[2019-10-08] MEDS: PERICOLACE PO SCH ×2 (08:51→22:24)
[2019-10-08] MEDS: MIRALAX PO SCH ×2 (08:54→22:24)
[2019-10-08] MEDS: NORVASC PO SCH (08:54)
[2019-10-08 08:57] LABS: INR 1.2; PROTIME 15.4 Seconds (11.0-16.0)
[2019-10-08 08:58] LABS: PTT 30.1 Seconds (22.3-41.8)
[2019-10-08] MEDS: CLINIMIX E 4.25%-5% SOLUTION 1,000 ML IV SCH ×2 (09:30→19:53)
--- NOTE | 2019-10-08 10:47 | Diag Imaging Result Doc PS360 ---
EXAM: CHEST-2 VIEWS INDICATION: POST LEFT THORA TECHNIQUE: 2 views COMPARISON: 10/05/2019 FINDINGS: There has been significant reduction in the amount of left pleural fluid as result of a recent thoracentesis. However, at least a moderate amount of pleural fluid remains even after aspirating 1300 mL. There is no evidence of pneumothorax status post thoracentesis. The visualized cardiac silhouette appears stable. IMPRESSION: No evidence of pneumothorax status post left thoracentesis. Electronically signed by Lencho Perry 10/08/2019 10:45 AM
--- NOTE | 2019-10-08 10:49 | Diag Imaging Result Doc PS360 ---
EXAM: US THORACENTESIS W/IMAGE GUIDE INDICATION: pleural effusion TECHNIQUE: COMPARISON: None. FINDINGS: Risks, benefits, and alternatives were discussed with the patient and informed consent was obtained. The patient was prepped and draped in sterile fashion and local anesthesia was achieved with 1% lidocaine solution. Using ultrasound guidance, a large bore catheter was inserted into the left pleural space 1300 mL of yellow-brown slightly opaque fluid was aspirated. There were no known complications. A postprocedural chest radiograph showed no pneumothorax. IMPRESSION: Technically successful ultrasound-guided left thoracentesis. Electronically signed by Lencho Perry 10/08/2019 10:47 AM
[2019-10-08] MEDS ORDERED: LASIX IV ONE ×2 (11:11→11:14)
--- NOTE | 2019-10-08 12:12 | PROGRESS NOTE ---
DATE: 10/08/2019 SUBJECTIVE: Mr. Ray is doing better after he had thoracentesis, about 1300 mL of fluid was drained from the left chest by Dr. Perry. His lungs reveal some better air entry. His COVID-19 test is negative. Pleural fluid has been sent for chemistry as well as a routine culture. Chest x-ray done after the thoracentesis does not reveal any evidence of pneumothorax. Overall condition is still about the same, reveal he still has a moderate amount of pleural fluid in the left chest. We will continue the current management. He has some fluid retention. We will give him Lasix 40 mg IV daily. He has a Rodriguez catheter. cc: Brendan Guadalupe MD
[2019-10-08 12:14] LABS: AMYLASE BODY FLUID < 3 U/L; GLUCOSE BODY FLUID < 2 mg/dL; LDH BODY FLUID 472 U/L; TOTAL PROT BODY FLUID 3.5 g/dL
[2019-10-08 12:15] LABS: BODY FLUID SOURCE PLEURAL FLUID; SPECIMEN PLEURAL FLUID; WBC BF 1114 /cumm
[2019-10-08 12:16] LABS: MONOS 24 %; POLYS 76 %
[2019-10-08] MEDS: LIPITOR PO SCH (22:24)
[2019-10-08] MEDS: LANTUS INSULIN SUBQ SCH (22:24)
[2019-10-08] MEDS: ZOSYN 2.25 GM in NS 50 ML IV SCH (23:47)
[2019-10-09] MEDS: SOLU-MEDROL IV SCH ×3 (03:04→21:50)
--- NOTE | 2019-10-09 04:24 | PULMONOLOGY PROGRESS NOTE ---
DATE: 10/08/2019 SUBJECTIVE: The patient is awake and alert. He has no specific complaints. Thoracentesis has been performed. OBJECTIVE: Vital Signs: The patient has been afebrile for the last 24 hours. Blood pressure 124/70, heart rate 61, respiratory rate 20, oxygen saturation 91% on 6 L per nasal cannula. HEENT: Pupils are equal and reactive. Oropharynx appears clear. Neck: Supple. Chest: Reveals decreased breath sounds left base. Cardiac: S1-S2. Abdomen: Soft. Extremities: Reveal 1 to 2+ peripheral edema. LABORATORIES: Pleural fluid reveals a glucose of less than 2. LDH is elevated at 472. PH is 7.0. White blood count 1114. IMPRESSION: An 84-year-old with pneumonia, prior stroke, pleural effusion, fevers, and significant leukocytosis. Pleural fluid is worrisome for empyema. PLAN: 1. Change antibiotic coverage given progressive leukocytosis to Zosyn. We will continue linezolid. 2. Await culture data. 3. Follow-up CT scan tomorrow. 4. Patient may require a decision to place a chest tube or PEG tube catheter pending clinical course. cc: MD Brendan García MD
[2019-10-09] MEDS: ZOSYN 2.25 GM in NS 50 ML IV SCH ×4 (05:20→21:59)
[2019-10-09] MEDS: HUMULIN R SUBQ SCH ×4 (06:47→21:51)
[2019-10-09] MEDS: PERICOLACE PO SCH ×2 (08:04→21:53)
[2019-10-09] MEDS: NORVASC PO SCH (08:04)
[2019-10-09] MEDS: MIRALAX PO SCH ×2 (08:04→21:50)
[2019-10-09] MEDS: LASIX IV SCH (08:04)
[2019-10-09] MEDS: TENORMIN PO SCH (08:05)
[2019-10-09] MEDS: ZYRTEC PO SCH (08:05)
[2019-10-09] MEDS: FLOMAX PO SCH (08:05)
[2019-10-09] MEDS: DITROPAN PO SCH ×2 (08:05→21:50)
[2019-10-09] MEDS: XOPENEX HFA INH PRN ×2 (09:15→16:50)
--- NOTE | 2019-10-09 10:04 | Diag Imaging Result Doc PS360 ---
EXAM: CT THORAX W/O CONTRAST HISTORY: empyema TECHNIQUE: CT chest without intravenous contrast COMPARISON: None. FINDINGS: There is a moderate sized left pleural effusion measuring 4.0 cm posteriorly and inferiorly in the midline with a tiny right pleural effusion. No cardiomegaly. Severe coronary artery calcifications. There are also atherosclerotic calcifications in the aorta. No enlarged lymph nodes. There are dense infiltrates in the left upper lobe and there is atelectasis to the left upper and lower lobes. A small amount of atelectasis is found in the right lower lobe. There are several small calcified left hilar and subcarinal lymph nodes with scattered granuloma in the left lower lobe. IMPRESSION: Left-sided pneumonia and atelectasis with a moderate sized pleural effusion This exam was performed using automated exposure control, adjustment of mA or kV according to patient size, and/or use of iterative reconstruction technique. Electronically signed by Brandon Muse 10/09/2019 10:01 AM
[2019-10-09] MEDS: ZYVOX 600 MG/D5W 600 MG/300 ML IVPB IV SCH ×2 (10:33→21:49)
--- NOTE | 2019-10-09 12:33 | PROGRESS NOTE ---
DATE: 10/09/2019 SUBJECTIVE: Level 3 documentation. 84-year-old white gentleman admitted to the hospital on 09/30/2019. He had a fever 103, elevation of lactate level, impending respiratory failure and massive pleural effusion on the left side. The patient was transferred to [facility] under Dr. Guadalupe. INTERVAL HISTORY: The patient had a paracentesis yesterday, removed 1.3 L of fluid, pH is 7.0, consistent with empyema. Chest CT showed left-sided pneumonia, atelectasis with moderate pleural effusion. He needs to be drained by chest tube. Cultures are pending. The patient is nonverbal, asking to cover the bed sheets. PAST MEDICAL HISTORY: Reviewed. PAST SURGICAL HISTORY: Reviewed. MEDICINES: Reviewed. ALLERGIES: Not known. OBJECTIVE: Temperature is 97.3 degrees, pulse is 89, blood pressure 125/54, 6 L nasal cannula.HEENT: Within normal limits. He was restrained on the right hand and decreased breath sounds on the left side. Suboptimal exam. Abdomen: Belly is soft, distended. He has a condom catheter noted. He had left-sided weakness noted. INVESTIGATIONS: None reported. Blood sugars 377. Fluid pH is 7.0. White cells 1200. LDH slightly elevated. Blood cultures are negative. ASSESSMENT AND PLAN: 1. Left pleural effusion consistent with empyema and needed chest tube based on the pH. 2. Elevated blood sugars. I am going to cut down the steroids twice daily. 3. IV Clinimix. 4. Left-sided CVA stable. 5. BPH on Flomax with condom catheter. 6. Currently he is on antibiotics with Zyvox and Zosyn. 7. Hypertension. Norvasc 10 mg daily. Tenormin 50 daily. 8. Hyperlipidemia on Lipitor 40 mg daily. 9. Living Will DNR. 10. Chronic kidney disease stable. 11. Dementia stable. We will repeat the labs in the morning. LEVEL OF DOCUMENTATION: 35 minutes. cc: MD Brendan Davis MD
[2019-10-09] MEDS ORDERED: HUMULIN R SUBQ ONE (14:32)
--- NOTE | 2019-10-09 17:51 | GASTROENTEROLOGY CONSULTATION ---
DATE: 10/09/2019 REASON FOR CONSULTATION: Left chest empyema. 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 He is admitted with pneumonia. He developed an effusion which was thoracentesed yesterday, I believe, and had a low pH concerning for empyema. He has had no fevers. Pulse 62. Blood pressure 126/84. Oxygen saturation is high 90s on 6 L. MEDICAL HISTORY: Severe underlying lung disease, COPD, recent pneumonia, history of CVA, hypertension, diabetes, dementia, hyperlipidemia, BPH, chronic kidney disease, chronic anemia, and allergies. SURGICAL HISTORY: He denies any thoracic procedures and I do not believe he has had any procedures on review of the records. SOCIAL HISTORY: Lives at [facility]. No tobacco, alcohol, or drugs. FAMILY HISTORY: Reviewed. Significant for coronary disease. REVIEW OF SYSTEMS: Ten-point review of systems somewhat limited, but negative other than what is mentioned in HPI. PHYSICAL EXAMINATION: vital signs: He is afebrile, pulse 62, blood pressure 126/54, oxygen 97%. He is on nasal cannula. General: He is alert, but chronically ill appearing and very frail. HEENT: No cervical mass. Cardiovascular: Normal rate. Pulmonary: No increased work of breathing, but he does have rhonchi and coarse cough. Abdomen: Soft and nontender. Integument: Warm and dry. Psychiatric: Appropriate affect. Neurologic: He has a dense contracture of left upper extremity that is for the most part immobile oriented across his chest. LABORATORIES: I reviewed his laboratories. He has had a leukocytosis, but no laboratories recently. Glucose up to 405. His pleural fluid showed a pH of 7.0 with a white blood cell count of 1114. IMAGING: I reviewed his imaging, including CT of his chest. ASSESSMENT AND PLAN: This is an 84-year-old gentleman with a moderate-size left effusion parapneumonic and he had a low pH concerning for empyema. Unfortunately, I think he would ideally undergo a video-assisted decortication and chest tube placement in this posteriorly and inferiorly based effusion, but he has a dense arm contracture of his left chest that would prohibit this. As such and given his frail state, I have recommended percutaneous CT-guided drain placement. I talked to Dr. Camacho about it. We will follow along and help manage his tube, but would advise against any surgical intervention at this juncture other than a percutaneous drainage. cc: MD Brendan Freitas MD
[2019-10-09] MEDS: CLINIMIX E 4.25%-5% SOLUTION 1,000 ML IV SCH (18:48)
[2019-10-09] MEDS: LANTUS INSULIN SUBQ SCH (21:52)
[2019-10-09] MEDS: LIPITOR PO SCH (21:52)
--- NOTE | 2019-10-09 22:35 | PULMONOLOGY PROGRESS NOTE ---
DATE: 10/09/2019 SUBJECTIVE: The patient is arousable to alert. He has a weak cough effort. OBJECTIVE: Vital Signs: The patient has been afebrile. Blood pressure 111/39, heart rate 58, respiratory rate 20, oxygen saturation 100%. HEENT: Pupils are equal and reactive. Oropharynx appears clear. Neck: Supple. Chest: Reveals diminished breath sounds left base. Cardiac: S1-S2. Abdomen: Soft. Extremities: Without edema. LABORATORIES: CT scan of the thorax reveals left-sided pneumonia with moderate sized pleural effusion. Microbiology is negative. IMPRESSION: 1. An 84-year-old with pneumonia. 2. Hypoxemic respiratory failure. 3. Fevers. 4. Leukocytosis. 5. Pleural effusion with chemistries worrisome for empyema as his glucose is less than 2, LDH is elevated and pH is low. Given his age and frail status, he is not a good candidate for thoracoscopy and decortication as outlined by Dr. Jamey Mcgovern. I think a large bore pigtail catheter would be of benefit. PLAN: 1. Agree with plans for pigtail catheter drainage. 2. Continue current antibiotic regimen. 3. Continue to follow microbiology data. 4. Follow up chemistries and CBC tomorrow. cc: MD Brendan García MD
[2019-10-10] MEDS: ZOSYN 2.25 GM in NS 50 ML IV SCH ×4 (04:42→22:35)
[2019-10-10] MEDS: HUMULIN R SUBQ SCH ×4 (05:59→20:26)
[2019-10-10 06:26] LABS: BASO# 0.01 X1000 (0.0-0.2); BASO% 0.1 % (0.0-0.8); HEMATOCRIT 27.5 % (42.0-52.0); HEMOGLOBIN 9.2 g/dL (14.0-18.0); IMM GRAN# 0.03 X1000 (0.0-0.04); IMM GRAN% 0.2 % (0.0-0.5); LYMPH% 3.4 % (20.5-51.1); MCH 30.1 PG (27-31); MCHC 33.5 g/dL (33-37); MCV 89.9 FL (81-99); MONO# 0.24 X1000 (0.11-0.59); MONO% 1.4 % (1.7-9.3); MPV 9.5 FL (7.4-10.4); NEUT# 16.82 X1000 (1.4-6.5); NEUT% 94.9 % (42.2-75.2); PLT 193 X1000 (130-400); RBC 3.06 XMIL (4.7-6.1); RDW 12.6 % (11.5-14.5)
[2019-10-10 06:53] LABS: ALB/GLOB RATIO 0.8; ALBUMIN 2.4 g/dL (3.5-5.0); CALCIUM 8.3 mg/dL (8.8-10.2); CREATININE 2.9 mg/dL (0.7-1.2); POTASSIUM 3.9 mmol/L (3.5-5.1); TOTAL BILIRUBIN 0.27 mg/dL (0.20-1.00); TOTAL PROTEIN 5.3 g/dL (6.3-8.3)
[2019-10-10] MEDS: ZYRTEC PO SCH (09:19)
[2019-10-10] MEDS: DITROPAN PO SCH ×2 (09:19→20:04)
[2019-10-10] MEDS: FLOMAX PO SCH (09:19)
[2019-10-10] MEDS: MIRALAX PO SCH ×2 (09:20→20:04)
[2019-10-10] MEDS: TENORMIN PO SCH (09:20)
[2019-10-10] MEDS: LASIX IV SCH (09:20)
[2019-10-10] MEDS: PERICOLACE PO SCH ×2 (09:20→20:04)
[2019-10-10] MEDS: SOLU-MEDROL IV SCH ×2 (09:20→20:04)
[2019-10-10] MEDS: NORVASC PO SCH (09:20)
[2019-10-10] MEDS: ZYVOX 600 MG/D5W 600 MG/300 ML IVPB IV SCH ×2 (09:21→22:33)
--- NOTE | 2019-10-10 12:22 | GENERAL SURGERY PROGRESS NOTE ---
DATE: 10/10/2019 SUBJECTIVE: Clinically remains about the same. No new complaints. He is actually on room air this morning. No fevers and no tachycardia is documented. LABS: White count remains elevated at 17, slightly up from yesterday, hematocrit is 27. Creatinine is 2.9. No new imaging of his chest this morning. ASSESSMENT AND PLAN: An 84-year-old gentleman with a left-sided effusion, likely empyema. Plan is for percutaneous drain after discussion with radiology. This will be tomorrow. Otherwise, we will continue antibiotics and respiratory supportive care. cc: MD Brendan Freitas MD
--- NOTE | 2019-10-10 17:16 | PROGRESS NOTE ---
DATE: 10/10/2019 SUBJECTIVE: The patient is a little bit obtunded. Sleeping well. Blood sugar is coming down. OBJECTIVE: Temperature is 98 degrees, pulse 58. Vitals are stable. Physical Examination: Decreased breath sounds, stable. Neurological deficits on the left side. Investigations: White cell count 17, hematocrit 27.5, platelet count 193,000. Sodium 131, potassium 3.9, BUN 102, creatinine 2.9, glucose 209. Blood cultures are negative. ASSESSMENT AND PLAN: 1. Left-sided effusion with pneumonia, with empyema. I spoke to Dr. Mcgovern. They are going to do a CT-guided biopsy tomorrow. 2. Diabetes, currently on Lantus and sliding scale. Better after decreasing the intravenous steroids. 3. Azotemia with chronic kidney disease. Check the labs in the morning. He needs some more free water. 4. Currently is on a proton pump inhibitor. 5. Living Will is Do Not Resuscitate 1. 6. We will follow up. I appreciated Dr. Mcgovern and Dr. Kim's consults. LEVEL OF DOCUMENTATION: 25 minutes. cc: MD Brendan Davis MD
[2019-10-10] MEDS: CLINIMIX E 4.25%-5% SOLUTION 1,000 ML IV SCH (20:03)
[2019-10-10] MEDS: LIPITOR PO SCH (20:04)
[2019-10-10] MEDS: LANTUS INSULIN SUBQ SCH (20:26)
--- NOTE | 2019-10-10 21:23 | PULMONOLOGY PROGRESS NOTE ---
DATE: 10/10/2019 SUBJECTIVE: The patient is arousable. He offers no complaints. OBJECTIVE: Vital Signs: The patient has been afebrile for the last 24 hours. Blood pressure 175/51, heart rate 55, respiratory rate 17, O2 saturation 94% on supplemental oxygen HEENT: Pupils are equal and reactive. Oropharynx appears clear. Neck: Supple. Chest: Reveals decreased breath sounds left base. Cardiac: S1-S2. Abdomen: Soft. Extremities: Without edema. LABORATORIES: White blood count 17.70, hemoglobin 9.2, platelet 193,000. Microbiology reveals no new data. IMPRESSION: An 84-year-old with 1. Pneumonia. 2. Empyema by chemistries and CBC. 3. Fevers. 4. Leukocytosis. PLAN: 1. Anticipate percutaneous drainage with pigtail catheter placement tomorrow and to the left chest. 2. Continue antibiotic regimen. 3. Guarded prognosis. cc: MD Brendan García MD
[2019-10-11] MEDS: XOPENEX HFA INH PRN ×3 (00:39→15:38)
[2019-10-11] MEDS: ZOSYN 2.25 GM in NS 50 ML IV SCH ×4 (04:04→22:22)
[2019-10-11 05:38] LABS: HEMATOCRIT 27.5 % (42.0-52.0); HEMOGLOBIN 9.4 g/dL (14.0-18.0); IMM GRAN# 0.04 X1000 (0.0-0.04); IMM GRAN% 0.3 % (0.0-0.5); LYMPH# 0.68 X1000 (1.2-3.4); LYMPH% 4.5 % (20.5-51.1); MCH 30.2 PG (27-31); MCHC 34.2 g/dL (33-37); MCV 88.4 FL (81-99); MONO# 0.28 X1000 (0.11-0.59); MONO% 1.8 % (1.7-9.3); MPV 9.4 FL (7.4-10.4); NEUT# 14.24 X1000 (1.4-6.5); NEUT% 93.4 % (42.2-75.2); PLT 166 X1000 (130-400); RBC 3.11 XMIL (4.7-6.1); RDW 12.3 % (11.5-14.5); WBC 15.24 X1000 (4.8-10.8)
[2019-10-11 06:00] LABS: ALB/GLOB RATIO 0.7; ALBUMIN 2.3 g/dL (3.5-5.0); CALCIUM 8.3 mg/dL (8.8-10.2); CREATININE 2.7 mg/dL (0.7-1.2); TOTAL BILIRUBIN 0.3 mg/dL (0.20-1.00); TOTAL PROTEIN 5.4 g/dL (6.3-8.3)
[2019-10-11] MEDS: HUMULIN R SUBQ SCH ×4 (06:10→20:16)
[2019-10-11] MEDS ORDERED: CALMOSEPTINE OINTMENT TOP PRN (06:12)
[2019-10-11 06:24] LABS: BANDS 1 % (0-1); LYMPHS 3 % (21-51); MONO 1 % (1-9); SEGS 95 % (42-75)
[2019-10-11] MEDS: LASIX IV SCH (08:56)
[2019-10-11] MEDS: TENORMIN PO SCH (08:56)
[2019-10-11] MEDS: NORVASC PO SCH (08:56)
[2019-10-11] MEDS: SOLU-MEDROL IV SCH ×2 (08:56→20:18)
[2019-10-11] MEDS: MIRALAX PO SCH ×2 (08:56→20:18)
[2019-10-11] MEDS: ZYRTEC PO SCH (08:56)
[2019-10-11] MEDS: DITROPAN PO SCH ×2 (08:56→20:18)
[2019-10-11] MEDS: PERICOLACE PO SCH ×2 (08:56→20:18)
[2019-10-11] MEDS: FLOMAX PO SCH (08:56)
[2019-10-11] MEDS: ZYVOX 600 MG/D5W 600 MG/300 ML IVPB IV SCH ×2 (09:01→22:22)
[2019-10-11] MEDS ORDERED: DIFLUCAN PO ONE (09:38)
--- NOTE | 2019-10-11 10:03 | PROGRESS NOTE ---
DATE: 10/11/2019 Mr. Ray is in about the same general condition. He continues to have pleural effusion on the left side with underlying pneumonia and partial collapse of the lung. His overall condition has not improved. He has generalized edema, probably from overloading of fluid which he gets only the Clinimix and antibiotic fluids. He is getting Lasix also IV every day. His penis is swollen, edematous, and there is some dermatitis. We are going to try to give him Diflucan by mouth and apply Bactroban on the surface. Overall condition is otherwise unchanged. He has severe dermatitis. He may get a urology opinion about the penile dermatitis. cc: Brendan Guadalupe MD
[2019-10-11] MEDS: POLYSPORIN OINTMENT TOP SCH ×2 (11:02→20:17)
--- NOTE | 2019-10-11 14:11 | GENERAL SURGERY PROGRESS NOTE ---
DATE: 10/11/2019 SUBJECTIVE: No events overnight. No fevers documented. No tachycardia. Remains intermittently on nasal cannula, saturating in the 90s. OBJECTIVE: General: He is resting quietly, in no respiratory distress. Cardiovascular: Normal rate. I reviewed his labs. White count is down to 15, hematocrit is 27. Creatinine is 2.7. No repeat chest imaging today. ASSESSMENT/PLAN: This is an 84-year-old gentleman with left-sided empyema. Plan is for a percutaneous drain. This is being coordinated this morning with radiology. We will manage the drain postoperatively. cc: MD Brendan Freitas MD
--- NOTE | 2019-10-11 14:14 | Diag Imaging Result Doc PS360 ---
EXAM: US THORACENTESIS W/IMAGE GUIDE 10/11/2019 HISTORY: Left pleural effusion TECHNIQUE: Ultrasound-guided placement of left pleural catheter COMMENT: Consent was previously obtained. Following sterile preparation the skin posteriorly on the left and administration 1% lidocaine to the skin and deeper soft tissues, a 10.2-[place] pigtail catheter was placed in the large pleural fluid collection on the left. Drainage of blood-tinged relatively clear fluid was obtained. The catheter was secured to the skin with its adhesive device and self retaining ligature. IMPRESSION: Successful ultrasound-guided placement of pleural catheter. Electronically signed by Zay Choi 10/11/2019 2:11 PM
--- NOTE | 2019-10-11 14:22 | Diag Imaging Result Doc PS360 ---
EXAM: CHEST-2 VIEWS 10/11/2019 HISTORY: POST U/S LEFT THORACENTESIS TECHNIQUE: Inspiratory expiratory upright chest COMMENT: The left pleural fluid collection is slightly smaller status post placement of the pleural catheter on the left. There is no evidence of pneumothorax. IMPRESSION: Improved left pleural effusion/empyema. Electronically signed by Zay Choi 10/11/2019 2:19 PM
[2019-10-11] MEDS: LANTUS INSULIN SUBQ SCH (20:16)
[2019-10-11] MEDS: LIPITOR PO SCH (20:17)
[2019-10-11] MEDS: CLINIMIX E 4.25%-5% SOLUTION 1,000 ML IV SCH (20:37)
--- NOTE | 2019-10-12 02:52 | PULMONOLOGY PROGRESS NOTE ---
DATE: 10/11/2019 SUBJECTIVE: The patient is sleeping but arousable. He appears comfortable. OBJECTIVE: Vital Signs: The patient is afebrile for the last 24 hours. Blood pressure 142/70, heart rate 56, respiratory rate 18, oxygen saturation is 97%. HEENT: Pupils are equal and reactive. Oropharynx appears clear. Neck: Supple. Chest: Reveals decreased breath sounds at the left base. There is a collection specimen in the bed with the patient, it has thick serosanguineous fluid present. Abdomen: Soft. Extremities: Without edema. LABORATORY DATA: White blood count 15.24, hemoglobin 9.4, platelet count 166,000. IMPRESSION: An 84-year-old with: 1. Pneumonia. 2. Empyema. 3. Leukocytosis. PLAN: 1. Continue current antibiotic regimen. 2. Continue drainage per pigtail catheter. 3. Follow up chest x-ray tomorrow. cc: MD Brendan García MD
[2019-10-12] MEDS: ZOSYN 2.25 GM in NS 50 ML IV SCH ×4 (04:28→22:29)
--- NOTE | 2019-10-12 06:30 | Diag Imaging Result Doc PS360 ---
CHEST-1 VIEW - 10/12/2019 INDICATION: pleural effusion COMPARISON: 10/11/2019 FINDINGS: There is a stable pigtail catheter in the left lung base in good position. There is been slight decrease in the small left basilar pleural effusion. Stable infiltrate throughout the left lung. The right lung remains clear. Stable severely low lung volumes. Heart size remains normal. IMPRESSION: Slight decrease in the small left basilar residual pleural effusion. Electronically signed by Tito Benson 10/12/2019 6:28 AM
[2019-10-12] MEDS: HUMULIN R SUBQ SCH ×4 (06:44→21:06)
--- NOTE | 2019-10-12 08:42 | GENERAL SURGERY PROGRESS NOTE ---
DATE: 10/12/2019 SUBJECTIVE: A percutaneous drain was placed yesterday. He has had a significant amount of serosanguineous output. His chest x-ray looks better. Hemodynamically, he is about the same. OBJECTIVE: Pulse in the 50s, blood pressure 145/73, saturating in the high 90s on room air. His drain is serosanguineous. He has not had labs yet this morning other than a glucose of 194. I reviewed his x-ray. That shows decreasing left basilar effusion. ASSESSMENT AND PLAN: This is an 84-year-old gentleman with left parapneumonic effusion, possibly empyema. He has had a percutaneous drain placed. He also has multiple other medical issues. We will keep the drain for now. Continue antibiotics. cc: MD Brendan Freitas MD
[2019-10-12] MEDS: DITROPAN PO SCH ×2 (09:03→21:06)
[2019-10-12] MEDS: NORVASC PO SCH (09:03)
[2019-10-12] MEDS: PERICOLACE PO SCH ×2 (09:03→21:06)
[2019-10-12] MEDS: TENORMIN PO SCH (09:04)
[2019-10-12] MEDS: FLOMAX PO SCH (09:04)
[2019-10-12] MEDS: SOLU-MEDROL IV SCH ×2 (09:05→21:06)
[2019-10-12] MEDS: DIFLUCAN PO SCH (09:05)
[2019-10-12] MEDS: ZYRTEC PO SCH (09:05)
[2019-10-12] MEDS: ZYVOX 600 MG/D5W 600 MG/300 ML IVPB IV SCH ×2 (09:05→21:26)
[2019-10-12] MEDS: LASIX IV SCH (09:05)
[2019-10-12] MEDS: POLYSPORIN OINTMENT TOP SCH ×2 (09:06→21:17)
[2019-10-12] MEDS: MIRALAX PO SCH ×2 (09:06→21:17)
--- NOTE | 2019-10-12 09:39 | PROGRESS NOTE ---
DATE: 10/12/2019 His vital signs are stable. He is alert but confused. He has a pleural effusion with underlying pneumonia. He had his subcutaneous drain put in for the empyema. Overall condition is otherwise unchanged. His repeat chest x-ray shows slight decrease in the pleural fluid. He is on linezolid as well as piperacillin, strong antibiotics. We will continue with the current management. We started Diflucan yesterday thinking that he had some penile dermatitis with Miley or other fungus. cc: Brendan Guadalupe MD
--- NOTE | 2019-10-12 18:08 | CONSULTATION ---
DATE OF CONSULTATION: 10/12/2019 CONSULT PHYSICIAN: Dr. Guadalupe. REASON FOR CONSULTATION: Balanitis. HISTORY OF PRESENT ILLNESS: An 84-year-old male who has not been circumcised in the past who has been admitted with empyema and underwent percutaneous drainage on 10/11/2019. He reported significant difficulty retracting his foreskin and irritation of the head of the penis. Urology was consulted. The patient denies similar episodes in the past. He again has not been circumcised. He denies documented history of balanitis. He denies significant voiding problems. He is a fairly poor historian but nevertheless states he does not believe he had significant urinary troubles. PAST MEDICAL HISTORY: CVA, dementia, diabetes mellitus, hypertension, BPH, hyperlipidemia, allergic rhinitis, chronic kidney disease, anemia. PAST SURGICAL HISTORY: None. ALLERGIES: No known drug allergies. SOCIAL HISTORY: Denies tobacco, alcohol or illicit drug use. FAMILY HISTORY: Negative for malignancies. HOME MEDICATIONS: Atenolol, Lipitor, Zyrtec, Plavix, Flomax, Ditropan, Norvasc, Senna, Lantus. REVIEW OF SYSTEMS: Reviewed and 12 systems negative except as HPI. PHYSICAL EXAMINATION: T 98.3, P 57, BP 144/58.General: No acute distress. Pleasant male, although he is not very coherent. HEENT: Normocephalic, atraumatic. Cardiovascular: Regular rhythm. Pulmonary: Bilateral breath sounds. Abdomen: Soft, nontender, nondistended. : Normal phallus is without masses noted. He has got redundant foreskin and irritation consistent with significant balanitis around glans penis. His testes are atrophic bilaterally but descended without any evidence of masses or edema. His perineum has no evidence of rashes or compromise to structural integrity. Digital rectal examination was deferred. Back: No CVA tenderness. Lymphatic: No cervical or groin lymphadenopathy. Psychiatric: Appropriate mood and affect. PERTINENT LABORATORY DATA: White cell count is 15,000 on 10/11/2019. Creatinine is 2.7. It was 2.9 on 10/10/2019. PERTINENT IMAGES: I personally reviewed CT images from 09/29/2019, showed no evidence of urolithiasis, hydronephrosis, or bladder lesions. ASSESSMENT/PLAN: 84-year-old male who is not circumcised, who has significant balanitis. I have discussed with the patient that temporarily he could benefit from Lotrisone cream which will be both anti-inflammatory as well as anti yeast medication. We discussed that it is common in his age to have troubles recurring and he may end up benefiting from a circumcision in an outpatient setting. PLAN: 1. Recommend Lotrisone cream twice a day to affected area until the problem resolves. 2. He is welcome to make an appointment in clinic for followup and discuss circumcision at that time. 3. Thank you for consultation. 4. Please call with any questions. cc: MD Brendan Castillo MD
[2019-10-12] MEDS: LOTRISONE CREAM TOP SCH (21:06)
[2019-10-12] MEDS: LIPITOR PO SCH (21:06)
[2019-10-12] MEDS: CLINIMIX E 4.25%-5% SOLUTION 1,000 ML IV SCH (21:07)
[2019-10-12] MEDS: LANTUS INSULIN SUBQ SCH (21:07)
--- NOTE | 2019-10-13 00:22 | PULMONOLOGY PROGRESS NOTE ---
DATE: 10/12/2019 SUBJECTIVE: The patient is sleeping but arousable. He will not follow commands. OBJECTIVE: Vital Signs: The patient has been afebrile for the last 24 hours. Blood pressure 141/56, heart rate 58, respiratory rate 18, oxygen saturation 98%. HEENT: Pupils are equal and reactive. Oropharynx appears clear. Neck: Supple. Chest: Reveals dressing at the site of previous chest tube, which was accidentally removed today. Abdomen: Soft. Extremities: Without edema. LABORATORIES: Microbiology from pleural fluid remains negative. No bacteria were seen on Gram stain. Chest x-ray reveals slight decrease in small residual left-sided pleural effusion. IMPRESSION: 1. An 84-year-old with pneumonia. 2. Empyema. 3. Leukocytosis. 4. Status post chest tube placement with accidental removal. PLAN: 1. Continue current antibiotic regimen. 2. Follow up chest x-ray tomorrow. 3. Follow up CBC tomorrow. 4. With minimal fluid remaining, replacement of the pigtail catheter probably would be of limited benefit given the negative cultures today. cc: MD Brendan García MD
[2019-10-13] MEDS: ZOSYN 2.25 GM in NS 50 ML IV SCH ×4 (04:00→22:09)
[2019-10-13 06:19] LABS: HEMATOCRIT 27.4 % (42.0-52.0); HEMOGLOBIN 9.5 g/dL (14.0-18.0); MCH 30.6 PG (27-31); MCHC 34.7 g/dL (33-37); MCV 88.4 FL (81-99); MPV 11.3 FL (7.4-10.4); RBC 3.1 XMIL (4.7-6.1); RDW 12.7 % (11.5-14.5); WBC 15.71 X1000 (4.8-10.8)
[2019-10-13] MEDS: HUMULIN R SUBQ SCH ×4 (06:39→22:10)
[2019-10-13 07:46] LABS: CALCIUM 8.6 mg/dL (8.8-10.2); CREATININE 2.4 mg/dL (0.7-1.2); POTASSIUM 3.9 mmol/L (3.5-5.1)
--- NOTE | 2019-10-13 08:40 | Diag Imaging Result Doc PS360 ---
CHEST-PORTABLE - 10/13/2019 INDICATION: abnormal exam COMPARISON: 10/12/2019 FINDINGS: Lung volumes are severely low. There is a stable small left basilar pleural effusion. There is a stable mild infiltrate at the left lung base as well. The right lung remains clear. IMPRESSION: Pleural catheter removed. Otherwise no change from prior. Electronically signed by Tito Benson 10/13/2019 8:38 AM
--- NOTE | 2019-10-13 09:01 | PROGRESS NOTE ---
DATE: 10/13/2019 Mr. Ray is in about the same general condition. He continues to have pleural effusion on the left side with underlying pneumonia. Lung volumes are low. Chest x-ray is almost unchanged, except that pleural catheter came out on its own yesterday. His vital signs are stable. Lab data reveals continued leukocytosis, white count 15.71, hemoglobin 9.5. His potassium is 3.9. Magnesium is normal. However, the BUN is 108, creatinine 2.4. The pleural fluid results reveal 1114 WBCs, poly nuclear WBCs most of them, and only 24 mononuclear WBCs. LDH was 472. Amylase was less than 3. COVID-19 test is negative. Flu test is negative. Overall condition is unchanged. He is on IV Clinimix, as well as linezolid and piperacillin IV. Will continue the current management. cc: Brendan Guadalupe MD
[2019-10-13] MEDS: DIFLUCAN PO SCH (10:20)
[2019-10-13] MEDS: FLOMAX PO SCH (10:20)
[2019-10-13] MEDS: DITROPAN PO SCH ×2 (10:20→22:09)
[2019-10-13] MEDS: LASIX IV SCH (10:20)
[2019-10-13] MEDS: LOTRISONE CREAM TOP SCH ×2 (10:20→22:10)
[2019-10-13] MEDS: MIRALAX PO SCH ×2 (10:21→22:10)
[2019-10-13] MEDS: POLYSPORIN OINTMENT TOP SCH ×2 (10:21→22:11)
[2019-10-13] MEDS: SOLU-MEDROL IV SCH ×2 (10:21→22:11)
[2019-10-13] MEDS: NORVASC PO SCH (10:21)
[2019-10-13] MEDS: PERICOLACE PO SCH ×2 (10:21→22:09)
[2019-10-13] MEDS: ZYRTEC PO SCH (10:22)
[2019-10-13] MEDS: TENORMIN PO SCH (10:22)
--- NOTE | 2019-10-13 11:06 | GENERAL SURGERY PROGRESS NOTE ---
DATE: 10/13/2019 SUBJECTIVE/OBJECTIVE: Unfortunately, his drain was pulled out yesterday, but it does not sound like it was putting out very much. No fevers. No tachycardia. From a respiratory standpoint, he remains in the mid 90s on room air. White count is 15, it is stable. Creatinine is 2.4. He had a chest x-ray that shows removal of catheter, but no pneumothorax and otherwise stable findings. ASSESSMENT AND PLAN: We will continue pulmonary toileting, antibiotics. Call with any questions. cc: MD Brendan Freitas MD
[2019-10-13] MEDS: ZYVOX 600 MG/D5W 600 MG/300 ML IVPB IV SCH ×2 (11:33→22:09)
[2019-10-13] MEDS: LANTUS INSULIN SUBQ SCH (22:10)
[2019-10-13] MEDS: LIPITOR PO SCH (22:10)
--- NOTE | 2019-10-14 00:15 | PULMONOLOGY PROGRESS NOTE ---
DATE: 10/13/2019 SUBJECTIVE: The patient reports "I am doing okay." Patient was grinding his teeth upon arrival. OBJECTIVE: Vital Signs: The patient has been afebrile for the last 24 hours. Blood pressure 147/49, heart rate 61, respiratory rate 16, oxygen saturation 95%. HEENT: Pupils are equal and reactive. Oropharynx appears clear. Neck: Supple. Chest: Reveals decreased breath sounds left base. Cardiac: S1, S2. Abdomen: Soft. Extremities: Without edema. LABORATORIES: Chest x-ray reveals a small infiltrate and effusion at the left base. IMPRESSION: An 84-year-old with 1. Pneumonia. 2. Empyema. 3. Leukocytosis. PLAN: 1. Continue current antibiotic regimen. 2. Overall prognosis appears poor. cc: MD Brendan García MD
[2019-10-14] MEDS: ZOSYN 2.25 GM in NS 50 ML IV SCH ×3 (05:00→17:24)
[2019-10-14] MEDS: CLINIMIX E 4.25%-5% SOLUTION 1,000 ML IV SCH ×2 (05:00→18:36)
[2019-10-14] MEDS: HUMULIN R SUBQ SCH ×4 (06:52→22:23)
--- NOTE | 2019-10-14 09:20 | PROGRESS NOTE ---
DATE: 10/14/2019 SUBJECTIVE: Mr. Ray is doing about the same. His peripheral edema has reduced significantly. OBJECTIVE: His vital signs stable. He is afebrile. Blood pressure is 137/75. Lungs reveal poor air entry on the left side. The dermatitis around the penis is much better. He continues to have leukocytosis. Yesterday his electrolytes were stable. Blood sugar is around 230, and overall condition is otherwise stable. The chest x-ray done yesterday had showed some decrease in the pleural fluid. We are going to repeat the chest x-ray and Chem-7 in the morning. PROGNOSIS: Overall prognosis is poor. cc: Brendan Guadalupe MD
[2019-10-14] MEDS: NORVASC PO SCH (10:21)
[2019-10-14] MEDS: FLOMAX PO SCH (10:21)
[2019-10-14] MEDS: DITROPAN PO SCH ×2 (10:21→22:24)
[2019-10-14] MEDS: ZYRTEC PO SCH (10:21)
[2019-10-14] MEDS: PERICOLACE PO SCH ×2 (10:21→22:24)
[2019-10-14] MEDS: LASIX IV SCH (10:22)
[2019-10-14] MEDS: DIFLUCAN PO SCH (10:22)
[2019-10-14] MEDS: MIRALAX PO SCH ×2 (10:22→22:24)
[2019-10-14] MEDS: SOLU-MEDROL IV SCH ×2 (10:22→22:23)
[2019-10-14] MEDS: TENORMIN PO SCH (10:22)
[2019-10-14] MEDS: ZYVOX 600 MG/D5W 600 MG/300 ML IVPB IV SCH ×2 (10:23→22:21)
[2019-10-14] MEDS: LOTRISONE CREAM TOP SCH ×2 (11:46→23:00)
[2019-10-14] MEDS: POLYSPORIN OINTMENT TOP SCH ×2 (11:46→23:00)
--- NOTE | 2019-10-14 12:28 | GENERAL SURGERY PROGRESS NOTE ---
DATE: 10/14/2019 SUBJECTIVE: No fevers. No tachycardia. He is resting comfortably this morning. I reviewed the remainder of his medical record. ASSESSMENT AND PLAN: This is an 84-year-old gentleman with left effusion. A percutaneous drain was placed with some improvement, but it is subsequently removed. Recommend continue antibiotics, aggressive pulmonary toileting, and we will follow loosely. cc: MD Brendan Freitas MD
[2019-10-14] MEDS: LIPITOR PO SCH (22:24)
[2019-10-14] MEDS: LANTUS INSULIN SUBQ SCH (22:24)
[2019-10-15] MEDS: ZOSYN 2.25 GM in NS 50 ML IV SCH ×4 (01:08→18:25)
--- NOTE | 2019-10-15 06:23 | Diag Imaging Result Doc PS360 ---
EXAM: CHEST-PORTABLE HISTORY: Lt Pleural Effusion TECHNIQUE: Single view COMPARISON: 10/13/2019 FINDINGS: Poor inspiratory effort. No cardiomegaly. There is a small left pleural effusion. There are infiltrates and atelectasis in the lower left lung. The right lung remains clear. IMPRESSION: No significant interval change Electronically signed by Brandon Muse 10/15/2019 6:20 AM
[2019-10-15 06:31] LABS: CALCIUM 8.2 mg/dL (8.8-10.2); CREATININE 2.4 mg/dL (0.7-1.2); MAGNESIUM 2.3 mg/dL (1.5-2.7); POTASSIUM 3.6 mmol/L (3.5-5.1)
[2019-10-15] MEDS: HUMULIN R SUBQ SCH ×4 (06:32→21:56)
[2019-10-15] MEDS: FLOMAX PO SCH (11:09)
[2019-10-15] MEDS: ZYRTEC PO SCH (11:09)
[2019-10-15] MEDS: TENORMIN PO SCH (11:09)
[2019-10-15] MEDS: MIRALAX PO SCH ×2 (11:09→21:24)
[2019-10-15] MEDS: ZYVOX 600 MG/D5W 600 MG/300 ML IVPB IV SCH ×2 (11:10→21:47)
[2019-10-15] MEDS: SOLU-MEDROL IV SCH ×2 (11:10→21:24)
[2019-10-15] MEDS: DIFLUCAN PO SCH (11:10)
[2019-10-15] MEDS: NORVASC PO SCH (11:11)
[2019-10-15] MEDS: PERICOLACE PO SCH ×2 (11:11→21:24)
[2019-10-15] MEDS: POLYSPORIN OINTMENT TOP SCH ×2 (11:12→21:37)
[2019-10-15] MEDS: DITROPAN PO SCH ×2 (11:12→21:24)
[2019-10-15] MEDS: LOTRISONE CREAM TOP SCH ×2 (11:12→21:36)
[2019-10-15] MEDS: CLINIMIX E 4.25%-5% SOLUTION 1,000 ML IV SCH ×2 (11:20→21:37)
[2019-10-15] MEDS: LASIX IV SCH (11:24)
--- NOTE | 2019-10-15 11:42 | PROGRESS NOTE ---
DATE: 10/15/2019 Mr. Ray is more alert. He is confused but more alert, asking questions. His chest x-ray is about the same. Certainly not worse. Lab data reveals sodium 131, otherwise BUN is 106, creatinine is 2.4. Continue with the current management on him. We will try to cut down on Lasix. -9 cc: Brendan Guadalupe MD
--- NOTE | 2019-10-15 12:50 | GENERAL SURGERY PROGRESS NOTE ---
DATE: 10/15/2019 SUBJECTIVE: Clinically seems more alert. No fevers. No tachycardia. He is on room air. Cardiovascular normal rate. ASSESSMENT AND PLAN: An 84-year-old gentleman with left-sided effusion. Please call with any questions. It seems to be relatively asymptomatic and is not an operative candidate further. cc: MD Brendan Freitas MD
--- NOTE | 2019-10-15 17:41 | PULMONOLOGY PROGRESS NOTE ---
DATE: 10/15/2019 SUBJECTIVE: The patient is lying in the bed in no distress. He denies any complaints. OBJECTIVE: Vital Signs: Blood pressure is 153/56 with a heart rate of 60, respirations 17, temperature 98.8 oral with O2 saturation 97% to 98% on 4 L nasal cannula. HEENT: Head is normocephalic, atraumatic. Mucous membranes are moist. Pupils are equal and round and react to light. Neck: Supple with trachea midline. Cardiovascular: Regular rate and rhythm. S1 and S2 appreciated. No murmur. Pulmonary: Breath sounds are decreased throughout. Chest rises and falls symmetrically with respiration. Gastrointestinal: Abdomen is soft, nontender, nondistended. Bowel sounds in all 4 quadrants. Extremities: No clubbing, cyanosis, or edema. LABS: Sodium is 131, potassium 3.6, BUN 106, creatinine 2.4 with a glucose of 187. Chest x-ray is stable with infiltrates in the left lower lung. ASSESSMENT: This is an 84-year-old with: 1. Pneumonia. 2. Empyema. 3. Leukocytosis. PLAN: 1. Continue antibiotic regimen of Zosyn and Zyvox. 2. Continues supplemental oxygen. 3. Continue bronchodilators. Dictated by SOURAV Cantrell for Bill Kim MD cc: SOURAV Cantrell MD Amit V. Vora, MD
[2019-10-15] MEDS: LIPITOR PO SCH (21:24)
[2019-10-15] MEDS: LANTUS INSULIN SUBQ SCH (21:56)
[2019-10-16] MEDS: ZOSYN 2.25 GM in NS 50 ML IV SCH ×5 (00:01→22:50)
[2019-10-16] MEDS: HUMULIN R SUBQ SCH ×4 (06:27→23:13)
[2019-10-16] MEDS: XOPENEX HFA INH PRN (08:37)
[2019-10-16] MEDS: TENORMIN PO SCH (09:41)
[2019-10-16] MEDS: DITROPAN PO SCH ×2 (09:41→22:51)
[2019-10-16] MEDS: ZYRTEC PO SCH (09:41)
[2019-10-16] MEDS: PERICOLACE PO SCH ×2 (09:42→22:51)
[2019-10-16] MEDS: LASIX IV SCH (09:43)
[2019-10-16] MEDS: SOLU-MEDROL IV SCH ×2 (09:43→22:50)
[2019-10-16] MEDS: MIRALAX PO SCH ×2 (09:43→22:51)
--- NOTE | 2019-10-16 09:51 | PROGRESS NOTE ---
DATE: 10/16/2019 SUBJECTIVE: The patient has no complaints, but he does groan a lot with his breathing. He states that he is not short of breath and he is not hurting. OBJECTIVE: Blood pressure is 115/69, respirations 21, pulse 64, temperature 97.5 degrees Fahrenheit, oxygen saturation on room air is good at 97%.HEENT: Normocephalic. EOMS intact. PERRLA. Throat clear. Lungs: Have rales in the left base. Heart: Regular rate and rhythm. Abdomen: Soft. Active bowel sounds. No organomegaly or tenderness. Neurological: Intact. Chest x-ray still shows small pleural effusion and infiltrates in the left base. LABORATORY: Shows white count 29178, that was 3 days ago. Hemoglobin 9.5 so he does have a little anemia as well. Two days ago, his creatinine was 2.4. GFR was only 26. He has chronic kidney disease. ASSESSMENT: 1. Left lower lobe pneumonia. 2. Left lower lobe pleural effusion. 3. Chronic kidney disease. The patient had had acute hypoxic respiratory failure. PLAN: We will continue to treat with IV antibiotics. We will get lab work. cc: MD Brendan Crowe Jr, MD
[2019-10-16] MEDS: DIFLUCAN PO SCH (10:00)
[2019-10-16] MEDS: ZYVOX 600 MG/D5W 600 MG/300 ML IVPB IV SCH ×2 (10:14→23:27)
[2019-10-16] MEDS: LOTRISONE CREAM TOP SCH ×2 (11:00→22:51)
[2019-10-16] MEDS: FLOMAX PO SCH (11:13)
[2019-10-16] MEDS: NORVASC PO SCH (11:13)
[2019-10-16] MEDS: POLYSPORIN OINTMENT TOP SCH ×2 (15:30→22:52)
--- NOTE | 2019-10-16 18:13 | PULMONOLOGY PROGRESS NOTE ---
DATE: 10/16/2019 SUBJECTIVE: Mr. Ray states that he is feeling a little better today. He denies any complaints. OBJECTIVE: Vital Signs: Blood pressure is 140/50 with a heart rate of 60, respirations 20, temperature 97.3 with room air saturation 97%. HEENT: Head is normocephalic, atraumatic. Pupils are equal and round, react to light. Sclerae are anicteric. Neck: Supple with trachea midline. Cardiovascular: Regular rate and rhythm. S1 and S2 appreciated. Pulmonary: Breath sounds are decreased throughout. Chest rise and fall are symmetric with respiration. Gastrointestinal: Soft, nontender with bowel sounds in all 4 quadrants. Extremities: No clubbing, cyanosis, or edema. Calves are nontender. LABS: Blood sugars are ranging in the 203 to 216 range. ASSESSMENT: This is an 84-year-old gentleman with: 1. Pneumonia. 2. Empyema. 3. Leukocytosis. PLAN: 1. Continue antibiotics of Zosyn and Zyvox. 2. Continue supplemental oxygen. 3. Continue bronchodilators. Dictated by SOURAV Cantrell for Bill Kim MD cc: SOURAV Cantrell MD Amit V. Vora, MD
[2019-10-16] MEDS: LIPITOR PO SCH (22:51)
[2019-10-16] MEDS: LANTUS INSULIN SUBQ SCH (23:14)
[2019-10-16] MEDS: CLINIMIX E 4.25%-5% SOLUTION 1,000 ML IV SCH (23:27)
[2019-10-17] MEDS: ZOSYN 2.25 GM in NS 50 ML IV SCH ×4 (04:08→22:23)
[2019-10-17 05:57] LABS: HEMATOCRIT 22.3 % (42.0-52.0); HEMOGLOBIN 7.5 g/dL (14.0-18.0); LYMPH# 0.64 X1000 (1.2-3.4); LYMPH% 3.4 % (20.5-51.1); MCH 29.5 PG (27-31); MCHC 33.6 g/dL (33-37); MCV 87.8 FL (81-99); MONO# 0.46 X1000 (0.11-0.59); MONO% 2.4 % (1.7-9.3); MPV 11.4 FL (7.4-10.4); PLT 80 X1000 (130-400); RBC 2.54 XMIL (4.7-6.1); RDW 12.4 % (11.5-14.5); WBC 19.07 X1000 (4.8-10.8)
[2019-10-17 06:13] LABS: CALCIUM 8.3 mg/dL (8.8-10.2); CREATININE 2.7 mg/dL (0.7-1.2); POTASSIUM 3.7 mmol/L (3.5-5.1)
[2019-10-17] MEDS: HUMULIN R SUBQ SCH ×4 (06:28→22:22)
[2019-10-17 07:09] LABS: BANDS 2 % (0-1); HYPOCHROM 1+; LYMPHS 2 % (21-51); MONO 2 % (1-9); POIKILOCYTOSIS 1+; SEGS 94 % (42-75)
[2019-10-17] MEDS: SOLU-MEDROL IV SCH ×2 (09:58→22:26)
[2019-10-17] MEDS: FLOMAX PO SCH (09:58)
[2019-10-17] MEDS: DITROPAN PO SCH ×2 (09:58→22:24)
[2019-10-17] MEDS: LASIX IV SCH (09:58)
[2019-10-17] MEDS: TENORMIN PO SCH (09:59)
[2019-10-17] MEDS: MIRALAX PO SCH ×2 (09:59→22:25)
[2019-10-17] MEDS: NORVASC PO SCH (09:59)
[2019-10-17] MEDS: LOTRISONE CREAM TOP SCH ×2 (09:59→22:24)
[2019-10-17] MEDS: ZYRTEC PO SCH (09:59)
[2019-10-17] MEDS: PERICOLACE PO SCH ×2 (09:59→22:25)
[2019-10-17] MEDS: ZYVOX 600 MG/D5W 600 MG/300 ML IVPB IV SCH ×2 (10:00→22:26)
[2019-10-17] MEDS: POLYSPORIN OINTMENT TOP SCH ×2 (10:00→22:26)
[2019-10-17] MEDS: DIFLUCAN PO SCH (10:00)
[2019-10-17] MEDS ORDERED: PROTONIX [NONFORMULARY] PO ONE (11:17)
--- NOTE | 2019-10-17 11:40 | PROGRESS NOTE ---
DATE: 10/17/2019 SUBJECTIVE: The patient has no complaints but he seems a little confused. He was more anemic so I asked him if he had noticed any blood in his stool or black bowel movements, and I do not think he could understand what we were saying. I asked him if he had ever been anemic before and he did not know what that meant. OBJECTIVE: Blood pressure was down to 91/63 and then came up to 103/59. Previously, it has been better, yesterday at 123/58. Pulse was 63, respirations 19, temperature 98.1 degrees Fahrenheit. Last chest x-ray still showed left lower lobe pneumonia, done on 10/15/2019. HEENT: Normocephalic. EOMs intact. PERRLA. Throat clear. Lungs: Sound fairly clear to auscultation with just slightly decreased breath sounds. Heart: Regular rate and rhythm without murmurs, gallops, or friction rubs. Abdomen: Soft. Active bowel sounds. No organomegaly or tenderness. Neurological Examination: Intact grossly except for some confusion. White count is 19,070, hemoglobin has dropped from 9., even from 9.9 a few days ago, down to 7.5. We will repeat this. White count has gone up. Hematocrit is 22.3. He was at 30.8 on the . He does have some apparently chronic renal failure with 2.7 on his creatinine and BUN is 110. ASSESSMENT: 1. Left lower lobe pneumonia. 2. Left lower lobe pleural effusion. 3. Chronic kidney disease. 4. Anemia. This could be anemia of chronic disease. It could be a gastrointestinal bleed. We will get Hemoccult stool. We will check iron levels, B12 levels, etc. Indices look fairly normal. Platelet count is low at 80,000 but has been low. We will not transfuse at this time unless he goes lower but we will check more hemoglobins. We will see if this could be anemia of chronic disease. He could be that this is off just a little bit from the other ones but we will investigate. Continue his other treatments. cc: MD Brendan Crowe Jr, MD
[2019-10-17 12:25] LABS: BASO# 0.01 X1000 (0.0-0.2); HEMATOCRIT 20.7 % (42.0-52.0); HEMOGLOBIN 6.9 g/dL (14.0-18.0); IMM GRAN# 0.09 X1000 (0.0-0.04); IMM GRAN% 0.4 % (0.0-0.5); LYMPH# 0.49 X1000 (1.2-3.4); LYMPH% 2.4 % (20.5-51.1); MCH 29.6 PG (27-31); MCHC 33.3 g/dL (33-37); MCV 88.8 FL (81-99); MONO% 3.5 % (1.7-9.3); MPV 10.8 FL (7.4-10.4); NEUT# 18.98 X1000 (1.4-6.5); NEUT% 93.7 % (42.2-75.2); PLT 86 X1000 (130-400); RBC 2.33 XMIL (4.7-6.1); RDW 12.6 % (11.5-14.5); WBC 20.27 X1000 (4.8-10.8)
[2019-10-17 12:45] LABS: BANDS 2 % (0-1); LYMPHS 6 % (21-51); MONO 4 % (1-9); SEGS 88 % (42-75)
[2019-10-17 12:57] LABS: UNBOUND IRON 30 ug/dL (112-346)
[2019-10-17 12:58] LABS: TOTAL IRON 125 ug/dL (53-167)
[2019-10-17 13:02] LABS: TIBC 155 ug/dL
[2019-10-17 13:03] LABS: IRON SATURATION 81 %
--- NOTE | 2019-10-17 17:12 | PULMONOLOGY PROGRESS NOTE ---
DATE: 10/17/2019 SUBJECTIVE: Mr. Ray has no complaints today. He is sitting up in the bed, watching TV. OBJECTIVE: Vital Signs: Blood pressure is 107/63, with a heart rate of 60, respirations 19, temperature is 97.8 degrees axillary, with room air saturations 98%. Cardiovascular: Regular rate and rhythm. S1 and S2 are appreciated. Pulmonary: Breath sounds are decreased throughout. Chest rises and falls symmetrically with respiration. No increased work of breathing noted. Gastrointestinal: Abdomen is soft, nontender, with bowel sounds in all 4 quadrants. Extremities: No clubbing, cyanosis, or edema. Calves are nontender. Labs: WBC is 19, with hemoglobin 7.5, hematocrit 22.3, and platelets of 80,000. Blood sugars ranging from 122 to 197. IMPRESSION: This is an 84-year-old gentleman with: 1. Pneumonia. 2. Empyema. 3. Leukocytosis. PLAN: We will continue antibiotics with Zosyn and Zyvox. Continue supplemental oxygen. Continue bronchodilators. Dictated by SOURAV Cantrell for Bill Kim MD cc: SOURAV Cantrell MD Amit V. Vora, MD
[2019-10-17] MEDS: CLINIMIX E 4.25%-5% SOLUTION 1,000 ML IV SCH (22:04)
[2019-10-17] MEDS: LANTUS INSULIN SUBQ SCH (22:23)
[2019-10-17] MEDS: LIPITOR PO SCH (22:24)
[2019-10-17] MEDS: XOPENEX HFA INH PRN (23:12)
[2019-10-18] MEDS: XOPENEX HFA INH PRN ×2 (03:46→08:32)
[2019-10-18] MEDS: ZOSYN 2.25 GM in NS 50 ML IV SCH ×3 (05:07→21:57)
[2019-10-18 06:34] LABS: CREATININE 2.6 mg/dL (0.7-1.2); POTASSIUM 3.6 mmol/L (3.5-5.1)
[2019-10-18] MEDS: HUMULIN R SUBQ SCH ×5 (06:40→22:34)
[2019-10-18] MEDS: PROTONIX [NONFORMULARY] PO SCH (06:40)
[2019-10-18 07:12] LABS: HEMATOCRIT 18.1 % (42.0-52.0); HEMOGLOBIN 5.8 g/dL (14.0-18.0); IMM GRAN# 0.02 X1000 (0.0-0.04); IMM GRAN% 0.1 % (0.0-0.5); LYMPH# 0.37 X1000 (1.2-3.4); LYMPH% 2.5 % (20.5-51.1); MCV 90.5 FL (81-99); MONO# 0.31 X1000 (0.11-0.59); MONO% 2.1 % (1.7-9.3); MPV 12.2 FL (7.4-10.4); NEUT# 14.18 X1000 (1.4-6.5); NEUT% 95.3 % (42.2-75.2); PLT 70 X1000 (130-400); RDW 12.9 % (11.5-14.5); WBC 14.88 X1000 (4.8-10.8)
[2019-10-18 08:05] LABS: LYMPHS 5 % (21-51); MONO 3 % (1-9); SEGS 92 % (42-75)
[2019-10-18 08:06] LABS: ANISOCYTOSIS 1+
--- NOTE | 2019-10-18 09:35 | PROGRESS NOTE ---
DATE: 10/18/2019 Mr. Ray has a positive occult blood in the stool. His repeat CBC this morning revealed hemoglobin went down from 6.9 to 5.8. It has been slowly getting down. Stool is positive. He is on Protonix. He is not on any blood thinners. He is bleeding from somewhere in the GI tract. However, he is a very, very poor candidate as far as endoscopies are concerned. We are going to transfuse him 2 units of packed RBCs and see if he is stable. We may think about sending him back to the care home. Respiratory status is unchanged. -0 cc: Brendan Guadalupe MD
[2019-10-18] MEDS: PERICOLACE PO SCH ×2 (09:47→21:58)
[2019-10-18] MEDS: FLOMAX PO SCH (09:47)
[2019-10-18] MEDS: LASIX IV SCH (09:48)
[2019-10-18] MEDS: POLYSPORIN OINTMENT TOP SCH ×2 (09:48→22:00)
[2019-10-18] MEDS: LOTRISONE CREAM TOP SCH ×2 (09:48→22:00)
[2019-10-18] MEDS: DITROPAN PO SCH ×2 (09:48→21:58)
[2019-10-18] MEDS: SOLU-MEDROL IV SCH ×2 (09:48→21:58)
[2019-10-18] MEDS: ZYRTEC PO SCH (09:48)
[2019-10-18] MEDS: DIFLUCAN PO SCH (09:48)
[2019-10-18] MEDS: NORVASC PO SCH (09:48)
[2019-10-18] MEDS: TENORMIN PO SCH (09:48)
[2019-10-18] MEDS: MIRALAX PO SCH ×2 (09:48→21:58)
[2019-10-18] MEDS: ZYVOX 600 MG/D5W 600 MG/300 ML IVPB IV SCH ×2 (09:49→21:59)
--- NOTE | 2019-10-18 14:09 | CONSULTATION ---
DATE OF CONSULTATION: 10/18/2019 SUBJECTIVE: The patient is awake in bed, lethargic, responsive. OBJECTIVE: Vital signs: Were seen with temperature 98.3 degrees. He is afebrile. Pulse rate 74, respiratory rate 14, blood pressure 109/55, pulse oximetry 97 percent on room air. Head and neck exam: Trachea midline. Chest exam: Reduced entry, mainly on the left. Cardiac exam: S1, S2. Abdomen: Nontender. Extremities: He does have +1 pedal edema. Neurological: Lethargic. LABS/INVESTIGATIONS: Creatinine is 2.6. CBC, CMP noted. WBCs 14.88, hemoglobin is 5.8, dropping from 6.9. He is being transfused with 2 pack red blood cells. Dr. Guadalupe, is managing that aspect. MEDICATIONS WERE REVIEWED: He is on Zosyn and Zyvox. ASSESSMENT AND PLAN: An 84-year-old man, do not resuscitate 1 shelter resident, came with pneumonia, empyema, status post thoracentesis and drainage, leukocytosis. Surgery was involved earlier. Plan to continue the current antibiotics using blood transfusion, and will monitor oxygenation, labs and x-ray accordingly. cc: MD Brendan Mauricio MD [facility]
[2019-10-18] MEDS ORDERED: NS 500 ML ONE (14:15)
[2019-10-18] MEDS: LIPITOR PO SCH (21:58)
[2019-10-18] MEDS: CLINIMIX E 4.25%-5% SOLUTION 1,000 ML IV SCH (21:59)
[2019-10-18] MEDS: LANTUS INSULIN SUBQ SCH (22:01)
[2019-10-19] MEDS: ZOSYN 2.25 GM in NS 50 ML IV SCH ×4 (03:13→21:32)
[2019-10-19 05:31] LABS: EOS# 0.04 X1000 (0.0-0.7); EOS% 0.2 % (0.0-10.0); HEMATOCRIT 25.4 % (42.0-52.0); HEMOGLOBIN 8.6 g/dL (14.0-18.0); IMM GRAN# 0.07 X1000 (0.0-0.04); IMM GRAN% 0.3 % (0.0-0.5); LYMPH# 0.55 X1000 (1.2-3.4); LYMPH% 2.5 % (20.5-51.1); MCH 30.2 PG (27-31); MCHC 33.9 g/dL (33-37); MCV 89.1 FL (81-99); MONO% 1.8 % (1.7-9.3); MPV 12.2 FL (7.4-10.4); NEUT# 20.92 X1000 (1.4-6.5); NEUT% 95.2 % (42.2-75.2); PLT 68 X1000 (130-400); RBC 2.85 XMIL (4.7-6.1); RDW 13.7 % (11.5-14.5); WBC 21.98 X1000 (4.8-10.8)
[2019-10-19 06:02] LABS: CREATININE 2.7 mg/dL (0.7-1.2); POTASSIUM 4.1 mmol/L (3.5-5.1)
[2019-10-19] MEDS: HUMULIN R SUBQ SCH ×3 (06:57→21:55)
[2019-10-19] MEDS: PROTONIX [NONFORMULARY] PO SCH (06:57)
--- NOTE | 2019-10-19 09:27 | PROGRESS NOTE ---
DATE: 10/19/2019 Mr. Ray had received 2 units of packed RBC transfusion yesterday and his hemoglobin went up from 5.8 to 8.6. White count is still 21.96. We will continue the current management. We are going to repeat the chest x-ray and the blood count in the morning. His BUN and creatinine are still up. He has chronic renal failure and some pre renal azotemia on top of it. -0 cc: Brendan Guadalupe MD
[2019-10-19] MEDS: MIRALAX PO SCH ×2 (09:50→21:32)
[2019-10-19] MEDS: FLOMAX PO SCH (09:52)
[2019-10-19] MEDS: ZYRTEC PO SCH (09:52)
[2019-10-19] MEDS: LASIX IV SCH (09:52)
[2019-10-19] MEDS: TENORMIN PO SCH (09:52)
[2019-10-19] MEDS: DITROPAN PO SCH ×2 (09:52→21:32)
[2019-10-19] MEDS: PERICOLACE PO SCH ×2 (09:52→21:32)
[2019-10-19] MEDS: NORVASC PO SCH (09:52)
[2019-10-19] MEDS: DIFLUCAN PO SCH (09:52)
[2019-10-19] MEDS: LOTRISONE CREAM TOP SCH ×2 (09:53→21:36)
[2019-10-19] MEDS: POLYSPORIN OINTMENT TOP SCH ×2 (09:53→21:37)
[2019-10-19] MEDS: SOLU-MEDROL IV SCH ×2 (09:53→21:32)
[2019-10-19] MEDS: ZYVOX 600 MG/D5W 600 MG/300 ML IVPB IV SCH ×2 (10:38→21:31)
[2019-10-19] MEDS: CLINIMIX E 4.25%-5% SOLUTION 1,000 ML IV SCH (21:31)
[2019-10-19] MEDS: LIPITOR PO SCH (21:32)
[2019-10-19] MEDS: LANTUS INSULIN SUBQ SCH (21:55)
[2019-10-20] MEDS: HUMULIN R SUBQ SCH ×6 (00:19→22:27)
[2019-10-20] MEDS: ZOSYN 2.25 GM in NS 50 ML IV SCH ×4 (01:38→22:26)
[2019-10-20 05:33] LABS: HEMATOCRIT 21.2 % (42.0-52.0); IMM GRAN# 0.03 X1000 (0.0-0.04); IMM GRAN% 0.2 % (0.0-0.5); LYMPH# 0.48 X1000 (1.2-3.4); MCH 29.8 PG (27-31); MCV 90.2 FL (81-99); MONO# 0.24 X1000 (0.11-0.59); MONO% 1.5 % (1.7-9.3); MPV 12.4 FL (7.4-10.4); NEUT# 15.41 X1000 (1.4-6.5); NEUT% 95.3 % (42.2-75.2); PLT 60 X1000 (130-400); RBC 2.35 XMIL (4.7-6.1); RDW 13.9 % (11.5-14.5); WBC 16.16 X1000 (4.8-10.8)
[2019-10-20 06:07] LABS: CALCIUM 7.9 mg/dL (8.8-10.2); CREATININE 2.7 mg/dL (0.7-1.2); POTASSIUM 4.3 mmol/L (3.5-5.1)
[2019-10-20] MEDS: PROTONIX [NONFORMULARY] PO SCH (06:20)
[2019-10-20 07:02] LABS: BANDS 2 % (0-1); HYPOCHROM 1+; LYMPHS 2 % (21-51); MONO 4 % (1-9); POIKILOCYTOSIS 1+; SEGS 92 % (42-75)
--- NOTE | 2019-10-20 07:26 | Diag Imaging Result Doc PS360 ---
CHEST-PORTABLE - 10/20/2019 INDICATION: pneumonia COMPARISON: 10/15/2019 FINDINGS: Lung volumes are severely low. There is a trace left pleural effusion with some adjacent infiltrate or atelectasis. This appears similar to prior. Heart size remains grossly normal. IMPRESSION: Little change from prior. Electronically signed by Tito Benson 10/20/2019 7:23 AM
--- NOTE | 2019-10-20 09:23 | PROGRESS NOTE ---
DATE: 10/20/2019 Mr. Ray is doing much better except that his hemoglobin is going down. It is back to 7 g from 8.4. He received 2 units of packed RBC transfusion the other day. I am going to repeat the CBC in the morning and also get a GI consult. The stool is positive for occult blood. He is in improved general condition, however. As soon as we can, we will transfer him to the [facility].. The anemia is a major problem at the present time. cc: Brendan Guadalupe MD MTDD
[2019-10-20] MEDS ORDERED: D5 1/2 NS 1,000 ML IV SCH (09:45)
[2019-10-20] MEDS: MIRALAX PO SCH ×2 (10:19→22:28)
[2019-10-20] MEDS: TENORMIN PO SCH ×2 (10:33→10:36)
[2019-10-20] MEDS: PERICOLACE PO SCH ×2 (10:33→22:26)
[2019-10-20] MEDS: SOLU-MEDROL IV SCH ×2 (10:33→22:26)
[2019-10-20] MEDS: DITROPAN PO SCH ×2 (10:33→22:26)
[2019-10-20] MEDS: ZYRTEC PO SCH (10:33)
[2019-10-20] MEDS: NORVASC PO SCH (10:33)
[2019-10-20] MEDS: LASIX IV SCH (10:33)
[2019-10-20] MEDS: FLOMAX PO SCH (10:33)
[2019-10-20] MEDS: DIFLUCAN PO SCH (10:33)
[2019-10-20] MEDS: ZYVOX 600 MG/D5W 600 MG/300 ML IVPB IV SCH ×2 (10:34→14:28)
[2019-10-20] MEDS: POLYSPORIN OINTMENT TOP SCH ×2 (10:41→22:28)
[2019-10-20] MEDS: LOTRISONE CREAM TOP SCH ×2 (10:41→22:28)
--- NOTE | 2019-10-20 11:14 | GASTROENTEROLOGY CONSULTATION ---
DATE: 10/20/2019 REASON FOR CONSULTATION: Recurrent anemia, stool positive for blood. HISTORY OF PRESENT ILLNESS: Mr. Ray is an 84-year-old male who has been in the hospital since 09/29/2019. He is AO x 1, history gathered from past medical records and from nursing staff. He has a history of CVA and left- sided hemiparesis, dementia, diabetes type 2, hypertension, chronic kidney disease stage 3. The patient is a resident of [facility], and was brought to the hospital because he was having a temperature of 103 degrees and was complaining of abdominal pain. Abdomen and pelvis CT was done on admission, and it showed that the patient had constipation with left lower lobe collapse and moderate left pleural effusions. The patient was also complaining of left upper quadrant pain and worse with inspiration. He was at [facility] and then was transferred to [facility]. An ultrasound guided thoracentesis was done on 10/08/2019 and they had taken out 1300 m of fluid from the left pleural space and the fluid was yellow-brown slightly opaque. The next ultrasound-guided thoracentesis was done on 10/11/2019, and there was a drainage of blood- tinged relatively clear fluid that was obtained. GI has been consulted because the patient is having dark tarry stools and his hemoglobin and hematocrit on 10/08/2019 were 5.8 and 18.1. Today it is 7 and 21.2. The patient has so far received 3 units of blood. Patient does take Plavix 75 mg daily. The patient's stool for occult blood was positive. His anaerobic cultures were negative. Routine cultures were negative. Blood cultures were negative. PAST MEDICAL HISTORY: CVA with left-sided hemiparesis, dementia, diabetes type 2, hypertension, BPH, hyperlipidemia, seasonal allergies, chronic kidney disease stage 3, and chronic anemia. PAST SURGICAL HISTORY: None. SOCIAL HISTORY: The patient lives at [facility]. Denied tobacco, alcohol, or illicit drug use. FAMILY HISTORY: Significant for heart disease. ALLERGIES: No known drug allergies. HOME MEDICATIONS: His home medications are atenolol 50 mg p.o. daily, atorvastatin 40 mg p.o. at bedtime, cetirizine 10 mg p.o. daily, Plavix 75 mg p.o. daily, Flomax 0.4 mg p.o. daily, oxybutynin chloride 5 mg p.o. twice a day, amlodipine 10 mg p.o. daily, sennosides 1 tablet p.o. twice a day as needed, multivitamin 1 tablet daily, Lantus SoloSTAR 20 units subcutaneously at bedtime. REVIEW OF SYSTEMS: Unable to gather much history from the patient. He is alert and oriented x1. PHYSICAL EXAMINATION: Vital Signs: Temperature 97.5 degrees, pulse 56, respirations 16, blood pressure 101/81, oxygen saturation 98% on room air. The patient's weight is 158 pounds. BMI is 22.1 kg/m2. General: The patient is alert, oriented x1. HEENT: Pale conjunctivae, no icterus. PERRL. Neck: Supple. Decreased breath sounds in the anterior tyler. Cardiovascular: The patient is bradycardic. Abdomen: Soft, nontender, nondistended. Active bowel sounds heard in all 4 quadrants. Extremities: No clubbing, no cyanosis, no edema. Pedal pulses 2+ present bilaterally. Neurologic: Alert and oriented x1. LABORATORY DATA: WBCs are 16.16, RBCs 2.25, hemoglobin is 7, hematocrit is 21.2, platelet count is 60,000. Sodium 144, potassium 4.3, chloride 107, carbon dioxide 21, anion gap 16, BUN 110, creatinine is 2.7, glucose is 278, calcium is 7.9. IMAGING: Chest x-ray has shown little change from the prior. IMPRESSION AND PLAN: 1. GI bleed. 2. Melena. 3. Acute blood loss anemia. 4. LLL pleural effusion, s/p thoracentesis. 5. H/o CVA. 6. Hypertension. 7. Diabetes type 2. 8. CKD stage III PLAN: Mr. Ray is an 84-year-old male with a history of CVA. GI has been consulted for his GI bleed. The patient's hemoglobin and hematocrit today are 7 and 21.2. We did a rectal exam, and it showed that the patient had melena. We plan to do an EGD tomorrow. We have discussed the risks, benefits, and alternatives with the patient's daughter, who has a medical power of bowling ball grader. We will transfuse 1 unit of blood. We will check his CBCs after 2 hours, and we will also give him IV fluids, D-5 1/2 NS @ 75 mls/hr, if the patient is not under fluid overload. The patient is currently receiving PPIs daily. He is receiving antibiotics, Zosyn and Zyvox. The patient is on a bowel regimen, MiraLAX 17 grams p.o. twice a day. Further plan of care will be based on the EGD findings. This plan was discussed with Dr. Eng. Thank you for your consult. Please call us for any further questions or concerns. Dictated by SOURAV Miranda for Timi Eng MD cc: Brendan Guadalupe MD [facility]
[2019-10-20] MEDS ORDERED: SODIUM CHLORIDE 0.9% INJ SCH (12:45)
[2019-10-20] MEDS ORDERED: PROTONIX IV SCH (12:45)
[2019-10-20 17:01] LABS: BASO# 0.02 X1000 (0.0-0.2); BASO% 0.1 % (0.0-0.8); HEMATOCRIT 24.8 % (42.0-52.0); HEMOGLOBIN 8.4 g/dL (14.0-18.0); LYMPH# 0.66 X1000 (1.2-3.4); LYMPH% 2.4 % (20.5-51.1); MCH 30.5 PG (27-31); MCHC 33.9 g/dL (33-37); MCV 90.2 FL (81-99); MONO# 0.56 X1000 (0.11-0.59); MONO% 2.1 % (1.7-9.3); MPV 12.9 FL (7.4-10.4); NEUT% 95.4 % (42.2-75.2); PLT 77 X1000 (130-400); RBC 2.75 XMIL (4.7-6.1); RDW 14.3 % (11.5-14.5); WBC 27.24 X1000 (4.8-10.8)
[2019-10-20 17:26] LABS: LYMPHS 6 % (21-51); SEGS 94 % (42-75)
[2019-10-20 17:27] LABS: ANISOCYTOSIS 1+
[2019-10-20] MEDS ORDERED: NS 500 ML ONE (18:24)
[2019-10-20] MEDS: LIPITOR PO SCH (22:26)
[2019-10-20] MEDS: CLINIMIX E 4.25%-5% SOLUTION 1,000 ML IV SCH (22:27)
[2019-10-20] MEDS: PROTONIX 80 MG in NS 80 ML IV SCH (22:28)
[2019-10-20] MEDS: LANTUS INSULIN SUBQ SCH (22:28)
[2019-10-20 23:38] LABS: HEMATOCRIT 29.5 % (42.0-52.0); HEMOGLOBIN 9.9 g/dL (14.0-18.0)
[2019-10-20 23:44] LABS: INR 1.25; PROTIME 15.9 Seconds (11.0-16.0)
[2019-10-20 23:45] LABS: PTT 25.8 Seconds (22.3-41.8)
[2019-10-21] MEDS: ZYVOX 600 MG/D5W 600 MG/300 ML IVPB IV SCH (03:04)
[2019-10-21] MEDS: ZOSYN 2.25 GM in NS 50 ML IV SCH ×2 (04:44→11:45)
[2019-10-21 05:35] LABS: BASO# 0.01 X1000 (0.0-0.2); EOS# 0.03 X1000 (0.0-0.7); EOS% 0.1 % (0.0-10.0); HEMOGLOBIN 8.7 g/dL (14.0-18.0); IMM GRAN# 0.05 X1000 (0.0-0.04); IMM GRAN% 0.2 % (0.0-0.5); LYMPH# 0.98 X1000 (1.2-3.4); LYMPH% 4.5 % (20.5-51.1); MCH 29.2 PG (27-31); MCHC 33.5 g/dL (33-37); MCV 87.2 FL (81-99); MONO# 0.54 X1000 (0.11-0.59); MONO% 2.5 % (1.7-9.3); NEUT# 20.02 X1000 (1.4-6.5); NEUT% 92.7 % (42.2-75.2); PLT 66 X1000 (130-400); RBC 2.98 XMIL (4.7-6.1); RDW 14.9 % (11.5-14.5); WBC 21.63 X1000 (4.8-10.8)
[2019-10-21] MEDS: HUMULIN R SUBQ SCH ×3 (06:46→11:50)
--- NOTE | 2019-10-21 09:11 | PROGRESS NOTE ---
DATE: 10/21/2019 SUBJECTIVE: Mr. Ray' CBC this morning revealed hemoglobin 8.7, hematocrit 26 after he had 3 units of packed RBC transfusion yesterday in the last 24 hours. He is having profuse bleeding right now through his rectum. His blood in the stool is tarry black, and overall condition is unchanged. Vital signs are stable. He is alert in his EGD today. He could be profusely bleeding from the stomach, and probably has hyperperistalsis on account of blood, and the blood is flowing through the rectum. Again, colonic pathology cannot be ruled out. His prognosis is poor, is going for EGD this morning by Dr. Wilson. cc: Brendan Guadalupe MD
[2019-10-21] MEDS ORDERED: VERSED ONE (09:17)
[2019-10-21] MEDS ORDERED: AMIDATE ONE (09:21)
[2019-10-21] MEDS ORDERED: XYLOCAINE-MPF 2% ONE (09:21)
--- NOTE | 2019-10-21 09:53 | ENDOSCOPY OPERATIVE NOTE ---
[facility] ENDOSCOPY OPERATIVE NOTE , EGD PROCEDURE REPORT EXAM DATE: 10/21/2019 PATIENT NAME: Sacha Ray MR#: [id number] BIRTHDATE: 1935 ATTENDING: Rojas Wilson MD STATUS: inpatient CHILD WELFARE MANAGER: Marion Marshall INDICATIONS: The patient is a 84 yr old male here for an EGD due to Hematemesis, Anemia, rectal blee ding, Melena. PROCEDURE PERFORMED: EGD, diagnostic MEDICATIONS: Per Anesthesia ESTIMATED BLOOD LOSS: None CONSENT: The patient understands the risks and benefits of the procedure and understands that these r isks include, but are not limited to: sedation, allergic reaction, infection, perforation and/or bleeding. Alternative means of evaluation and treatment include, among others: physical exam, x-rays, and/or surgical intervention. The patient elects to proceed with this endoscopic procedure. DESCRIPTION OF PROCEDURE: During pre-op preparation period all mechanical and medical equipment was c hecked for proper function. Hand hygiene and appropriate measures for infection prevention was taken. After the risks, benefits and alternatives of the procedure were thoroughly explained, Informed consent was verified, confirmed and timeout was successfully executed by the treatment team. The patient was anesthetized with topical anesthesia and the MD68-c32 ([id number]) endoscope was introduced through the mouth and advanced to the second portion of the duoden um. Retroflexion was performed in the stomach and revealed Gastritis noted at cardia and fundus. The gastroscope was then slowly withdrawn and removed. The patient's toleration of the procedure was good. ESOPHAGUS: Z line was noted at 45 cms. No evidence of varices. STOMACH: Severe acute gastritis (inflammation) was found in the gastric fundus, cardia, and gastric b kodi. DUODENUM: Multiple ranging between 5-9mm in size non-bleeding and clean-based ulcers were found in th e duodenal bulb and 1st part duodenum. The duodenal mucosa showed no abnormalities in the 2nd part of the duodenum. E ntire apex of duodenal bulb and first portion of duodenum is ulcerated in circumferential manner. ADVERSE EVENTS: There were no complications. IMPRESSIONS: 1. Z line was noted at 45 cms. No evidence of varices 2. Acute gastritis (inflammation) was found in the gastric fundus, cardia, and gastric body 3. Multiple ranging between 5-9mm in size ulcers were found in the duodenal bulb and 1st part duoden um 4. The duodenal mucosa showed no abnormalities in the 2nd part of the duodenum 5. Entire apex of duodenal bulb and first portion of duodenum is ulcerated in circumferential manner RECOMMENDATIONS: 1. Continue Protonix drip for 72 hours and then wean down to Protonix 40 mg BID Start Carafate 1g every 6 hours Watch Hct and transfuse as needed Avoid NSAIDs Repeat EGD in 3 months Clear liquid diet for today and advance as tolerated. 2. Begin an anti-reflux lifestyle: avoid acidic foods and drinks (like coffee and soda), do not lie down three hours after eating, elevate the head of your bed 6 to 9 inches, stop smokiing and reduce weight if needed. 3. Return to clinic in 3 months REPEAT EXAM: Return in 3 months for EGD. Rojas Wilson MD eSigned: Rojas Wilson MD 10/21/2019 9:52 AM CC: CPT CODES: 13928 Upper gastrointestinal endoscopy including esophagus, stomach, and either the du odenum and/or jejunum as appropriate; diagnostic, with or without collection of specimen(s) by brushing or washing (separate procedure) ICD CODES: 535.00 Acute gastritis (without mention of hemorrhage) 532.90 Duodenal ulcer unspecified as acute or chronic without hemorrhage or perforation without obstr uction The ICD and CPT codes recommended by this software are interpretations from the data that the [facility] staff has captured with the software. The verification of the translation of this report to the ICD and CPT co nicolasa and modifiers is the sole responsibility of the health care institution and practicing physician where this report was generated. [employer] will not be held responsible for the validity of the ICD and CPT codes i ncluded on this report. [employer] assumes no liability for data contained or not contained herein. CPT is a registered tra demark of the [employer]. PATIENT NAME: Sacha Ray MR#: [id number]
[2019-10-21] MEDS ORDERED: D50W SYRINGE IV ONE (10:56)
[2019-10-21] MEDS ORDERED: CARAFATE LIQUID PO SCH (11:00)
[2019-10-21] MEDS: FLOMAX PO SCH (11:31)
[2019-10-21] MEDS: DITROPAN PO SCH (11:31)
[2019-10-21] MEDS: DIFLUCAN PO SCH (11:31)
[2019-10-21] MEDS: NORVASC PO SCH (11:32)
[2019-10-21] MEDS: PERICOLACE PO SCH (11:32)
[2019-10-21] MEDS: MIRALAX PO SCH (11:32)
[2019-10-21] MEDS: SOLU-MEDROL IV SCH (11:33)
[2019-10-21] MEDS: TENORMIN PO SCH (11:33)
[2019-10-21] MEDS: ZYRTEC PO SCH (11:33)
[2019-10-21] MEDS: LASIX IV SCH (11:45)
[2019-10-21 12:30] LABS: HEMATOCRIT 32.1 % (42.0-52.0)
[2019-10-21] MEDS: PROTONIX 80 MG in NS 80 ML IV SCH ×2 (12:54→23:35)
[2019-10-21] MEDS ORDERED: TYLENOL PR PRN (13:28)
[2019-10-21] MEDS ORDERED: MORPHINE IV PRN (13:33)
[2019-10-21] MEDS ORDERED: ATIVAN IV PRN (13:34)
[2019-10-21 15:23] LABS: BASO# 0.01 X1000 (0.0-0.2); EOS# 0.11 X1000 (0.0-0.7); EOS% 0.4 % (0.0-10.0); IMM GRAN# 0.08 X1000 (0.0-0.04); IMM GRAN% 0.3 % (0.0-0.5); LYMPH# 1.16 X1000 (1.2-3.4); LYMPH% 4.4 % (20.5-51.1); MCH 28.8 PG (27-31); MCHC 33.3 g/dL (33-37); MCV 86.4 FL (81-99); MONO# 1.11 X1000 (0.11-0.59); MONO% 4.2 % (1.7-9.3); MPV 12.7 FL (7.4-10.4); NEUT# 23.67 X1000 (1.4-6.5); NEUT% 90.7 % (42.2-75.2); PLT 53 X1000 (130-400); RBC 3.82 XMIL (4.7-6.1); RDW 15.5 % (11.5-14.5); WBC 26.14 X1000 (4.8-10.8)
[2019-10-21 16:14] LABS: LYMPHS 5 % (21-51); MONO 1 % (1-9); SEGS 94 % (42-75)
[2019-10-22 09:43] LABS: BASO# 0.01 X1000 (0.0-0.2); BASO% 0.1 % (0.0-0.8); EOS# 0.05 X1000 (0.0-0.7); EOS% 0.3 % (0.0-10.0); HEMATOCRIT 31.1 % (42.0-52.0); HEMOGLOBIN 10.2 g/dL (14.0-18.0); IMM GRAN# 0.04 X1000 (0.0-0.04); IMM GRAN% 0.3 % (0.0-0.5); LYMPH# 1.59 X1000 (1.2-3.4); LYMPH% 10.3 % (20.5-51.1); MCH 28.7 PG (27-31); MCHC 32.8 g/dL (33-37); MCV 87.6 FL (81-99); MONO# 0.66 X1000 (0.11-0.59); MONO% 4.3 % (1.7-9.3); MPV 12.3 FL (7.4-10.4); NEUT# 13.07 X1000 (1.4-6.5); NEUT% 84.7 % (42.2-75.2); PLT 49 X1000 (130-400); RBC 3.55 XMIL (4.7-6.1); RDW 15.8 % (11.5-14.5); WBC 15.42 X1000 (4.8-10.8)
--- NOTE | 2019-10-22 10:55 | PROGRESS NOTE ---
DATE: 10/22/2019 Mr. Ray had a large amount of bleeding yesterday. He had EGD done which revealed the presence of multiple ulcers in the duodenum. His vital signs at the present time are normal. He is alert but confused. We decided yesterday about doing palliative care, which he is still on, and all the antibiotics have been stopped; however, we need to continue the IV Protonix, which I started. His CBCs remain somewhat stable, hemoglobin which was 8.7 yesterday, it went up to 11, however, it is down to 10.2 now. Overall condition is otherwise satisfactory. We will watch him closely. Family understands the seriousness of the patient's condition. cc: Brendan Guadalupe MD
[2019-10-22] MEDS: PROTONIX 80 MG in NS 80 ML IV SCH ×2 (12:31→20:32)
[2019-10-22] MEDS ORDERED: CLINIMIX E 4.25%-5% SOLUTION 1,000 ML IV SCH (13:00)
--- NOTE | 2019-10-22 13:06 | GASTROENTEROLOGY PROGRESS NOTE ---
DATE: 10/22/2019 SUBJECTIVE: Mr. Ray is an 84-year-old male sitting in bed. The patient was having his breakfast. He is on a clear liquid diet and was able to tolerate his diet well. The patient did have 2 bowel movements this morning and his stools were black and tarry. OBJECTIVE: Vital Signs: Temperature 97.9, pulse 68, respirations 17, blood pressure 126/53, oxygen saturation 96% on room. The patient's is weight is 160 pounds. BMI is 22.4 kg per cm2. General: He is alert and oriented x2, in no acute distress. HEENT: Pale conjunctiva. No icterus. PERRLA. Neck: Supple. Lungs: Decreased breath sounds in the anterior tyler. Cardiovascular: Regular rate and rhythm. Abdomen: Abdomen is soft, nontender, nondistended. Active bowel sounds heard in all 4 quadrants. Extremities: No clubbing, no cyanosis, no edema. Pedal pulses 2+ present bilaterally. Neurologic: He is alert and oriented x2. DIAGNOSTIC DATA: WBCs of 15.42, RBCs 3.55, hemoglobin is 10.2, hematocrit is 31.1, platelet count is 49,000. The patient has no new chemistries. EGD FINDINGS: The patient had an EGD done on 10/20/2018. He had acute gastritis in the gastric fundus, cardia, and the gastric body. Multiple ulcers ranging between 5 to 9 mm in size were found in the duodenal bulb and the first part of the duodenum. The duodenal mucosa showed no abnormalities in the second part of the duodenum. The entire apex of the duodenal bulb and the first portion of the duodenum was ulcerated in a circumferential manner. IMPRESSION AND PLAN: 1. GI bleed. 2. Melena. 3. Acute blood loss anemia. 4. LLL pleural effusion s/p thoracentesis. 5. H/o CVA. 6. Hypertension. 7. Diabetes type 2. 8. CKD stage III PLAN: Mr. Ray is an 84-year-old male with a history of CVA. GI is following him for his GI bleed. An EGD was done yesterday and the patient's entire apex of the duodenal bulb and the first portion of the duodenum was ulcerated. The patient is advised to continue with Protonix. He needs to avoid NSAIDs. The patient needs a repeat EGD in 3 months. He is currently on a clear liquid diet and is able to tolerate his diet well. Patient to follow up with Dr. Wilson in 4 weeks and a repeat EGD in 3 months. We will continue to monitor the patient and follow the plan of care per PCP. This plan was discussed with Dr. Eng. Please call us for any further questions or concerns. Dictated by SOURAV Miranda for Timi Eng MD cc: Brendan Guadalupe MD [facility]
[2019-10-23 04:18] VITALS: BP 140/98
[2019-10-23] MEDS: PROTONIX 80 MG in NS 80 ML IV SCH (06:00)
--- NOTE | 2019-10-23 16:04 | DISCHARGE SUMMARY ---
ADMISSION DATE: 09/29/2019 DISCHARGE DATE: 10/23/2019 DISCHARGE DIAGNOSES: 1. Acute gastritis with upper gastrointestinal bleeding. 2. Left lung pneumonia with left-sided pleural effusion. 3. Left-sided empyema that is parapneumonic. 4. Type 2 diabetes mellitus. 5. History of cerebrovascular accident with left-sided hemiparesis. 6. Hypertension. 7. Dyslipidemia. 8. Stage 3 chronic kidney disease. 9. Anemia secondary to chronic kidney disease. 10. Benign prostatic hypertrophy. 11. Dementia. HOSPITAL COURSE: The patient was admitted to the hospital on 09/29/2019 with left upper quadrant abdominal pain and shortness of breath. He was diagnosed as having partial collapse of left lung with pleural effusion that turned out to be empyema. He also had leukocytosis secondary to pneumonia and empyema. He was treated with broad-spectrum antibiotics and supportive care along with thoracentesis. His overall condition improved but then he developed upper GI bleed that required EGD that showed acute gastritis. He did receive IV proton pump inhibitors and rest of supportive care. His overall condition was getting better, but then this morning he was found to be unresponsive. He did not have a pulse and was not breathing. Because of his DNR status, resuscitation was not performed. He was pronounced at 6:50 this morning. Family members were notified who were supposed to visit the hospital. His body was released to [facility]. TIME SPENT: 37 minutes. cc: MD Brendan Almaguer MD [facility]
== END 2019-10-23 06:50 | disposition expired | DRG 871 ==
LOC: P.ED 07:04 → P.EDIPHOLD 12:21 → SUATTDRO 12:21 → 2N 18:48 → 1N 10-13 10:28 → 3N 10-22 16:54
PROVIDERS: ADMIT Internal Medicine; ATTEND Internal Medicine